=== PATIENT | male | born 1970 | race Caucasian/White ===

== ENCOUNTER 2022-03-03 13:55 | Inpatient (IN) | payer SELFPAY ==
[2022-03-03] VITALS (12 sets, daily range): BP systolic 138–203; BP diastolic 64–121
[~2022-03-03] VITALS: Ht 177.8 cm; Wt 95.5 kg
--- NOTE | 2022-03-03 14:57 | PDOC2 ---
SG CARTER INSTALLER 03/03/22 1457: CARDIAC CONSULT DATE OF CONSULT Date of Consult DATE: 03/03/22 TIME: 14:50 REASON FOR CONSULT Reason for Consult: ACS REFERRING PHYSICIAN Referring Physician: Roverto SOURCE Source: Chart review, Patient HISTORY OF PRESENT ILLNESS HISTORY OF PRESENT ILLNESS This is a 51 yo male admitted for complains of chest pain. He was initially at [facility] and transferred to [facility] for further cardiac workup. He has not been able to workout in the last month since he tore his left tricep. He has been stressed out related to his job. He is currently drowsy but still having mild chest discomfort. His is in the room and reported deatils. He was taking out the trash and lifting when he started having midchest tightness. He also though that his arm discomfort is from his tricep problem. He became diaphoretic, nauseated and actually vomited. He also became lightheaded and was having significant head tightness and this type of OVALLE is what he feels when his BP is high. No visual or auditory disturbance. His chest pain lasted for about 45 min with high intensity. No known hx of CAD, ischemic workup. VTE. He has been taking ibuprofen at least daily in over a week due to his tricep issue. He is vaccinated for the covid-19 PAST MEDICAL HISTORY Cardiovascular: HTN Musculoskeletal: Other (tricep tear) Renal/: Chronic renal insuff (?) Endocrine: Diabetes PAST SURGICAL HISTORY Past Surgical History: Other (teeth extraction) FAMILY HISTORY Family History noncontributory to CV SOCIAL HISTORY Smoke: No ALCOHOL: none Drugs: None Lives: with Family ALLERGIES ALLERGIES: Coded Allergies: Penicillins (Verified Allergy, Severe, 03/03/22) ROS Review of System 14 point ROS evaluated with pertinent positives noted per HPI PHYSICAL EXAM General: Alert, Oriented X3, Cooperative, No acute distress HEENT: Atraumatic, Mucous membr. moist/pink Lungs: Clear to auscultation, Normal air movement Heart: Regular rate (SR), Normal S1, Normal S2, No murmurs Abdomen: Soft, No tenderness Extremities: No cyanosis, No edema Skin: No breakdown, No significant lesion Neuro: Normal speech, Sensation intact Psych/Mental Status: Other (drowsy) MUSCULOSKELETAL: Full range of motion without pain ASSESSMENT/PLAN ASSESSMENT/PLAN 1. ACS 2. HTN urgency 3. WINNIE on CKD with hyperkalemia. Cr at 2.1 noted with 1.5 in the past 4. DM2: insulin dependent 5. OVALLE: due to high BP Recommendations 1. TTE, TSH, FLP tomorrow. BMP and trop stat. 2. ASA. Heparin drip 3. Hydralazine IV PRN 4. Await BMP and trop. K reversal agents if remains elevated. Start IVF 5. LHC, with possible PCI, risks and benefits discussed with pt and and agreeable to proceed JESSENIA CLARK MD 03/03/22 1726: CARDIAC CONSULT ASSESSMENT/PLAN ASSESSMENT/PLAN Patient seen and examined. 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 Patient with non-STEMI and ongoing chest pain. Continue heparin infusion per protocol. 2D echo showed LVEF 45% with basal to mid inferior, posterior lateral wall hypok inesis. Patient was found to have acute on chronic renal insufficiency and hypokalemia We gave him Kayexalate, calcium gluconate and D50 insulin The option of cardiac catheterization along with the risks and benefits was discussed and he agreed Emergent cardiac catheterization showed 100% occluded large caliber left circumflex artery He underwent successful PCI/drug-eluting stent placement LVEDP was elevated at 22 mmHg consistent with acute diastolic heart failure Due to heavy thrombus burden, we will start Aggrastat and continue for 18 hours Continue DAPT, start beta-blockers, statins Consider nephrology team consultation We will refer patient for cardiac rehabilitation on discharge Total critical care time spent evaluating, discussing options and managing patient 50 mins SG CARTER APRN March 03, 2022 14:57 JESSENIA CLARK MD March 03, 2022 17:26
[2022-03-03] MEDS ORDERED: NITROGLYCERIN SUBLINGUAL 0.4 MG BOTTLE OF 25. SL PRN (15:00)
[2022-03-03] MEDS ORDERED: MORPHINE SULFATE 2 MG/ML INJ. IVP PRN (15:00)
[2022-03-03] MEDS: hydrALAZINE 20 MG/ML VIAL. IVP PRN (15:05)
--- NOTE | 2022-03-03 15:08 | EKG ---
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
[2022-03-03] MEDS ORDERED: HEPARIN for IV BOLUS 10,000 UNIT/10 ML VIAL. IV PRN (15:15)
[2022-03-03] MEDS ORDERED: HEPARIN 25,000UTS/250ML PREMIX 250 ML IV PRN (15:15)
[2022-03-03 15:34] LABS: BARBITURATES NEG (NEG); BENZODIAZEPINES NEG (NEG); CANNABINOIDS NEG (NEG); COCAINE NEG (NEG); METHADONE NEG (NEG); OPIATES NEG (NEG); PHENCYCLIDINE NEG (NEG)
[2022-03-03 15:38] LABS: AMPHETAMINE/METHAMPHETAMINE NEG (NEG)
[2022-03-03 15:44] LABS: HYALINE CASTS, URINE MODERATE /HPF
[2022-03-03 15:46] LABS: BACTERIA,URINE 0 /HPF (0-FEW)
[2022-03-03] MEDS ORDERED: CETI10TA16 PO (15:49)
[2022-03-03] MEDS ORDERED: TRIA1TAB5 PO (15:49)
[2022-03-03] MEDS ORDERED: LISI20TA18 PO (15:49)
[2022-03-03 15:56] LABS: BASO # 0.1 x10^3/uL (0.0-0.2); BASO % 1 % (0-3); EOS % 0 % (0-3); HEMATOCRIT 37.4 % (39.0-53.0); HEMOGLOBIN 12.2 g/dL (13.0-17.5); LYMPH % 10 % (24-48); MEAN CORPUSCULAR HEMOGLOBIN 26 pg (25-35); MEAN CORPUSCULAR HGB CONC 33 g/dL (31-37); MEAN CORPUSCULAR VOLUME 80 fL (79-100); MONO # 0.3 x10^3/uL (0.0-1.1); MONO % 3 % (0-9); NEUT # 9.3 x10^3/uL (1.8-7.7); NEUT % 87 % (31-73); PLATELET COUNT 354 x10^3/uL (140-400); RED BLOOD COUNT 4.67 x10^6/uL (4.30-5.70); RED CELL DISTRIBUTION WIDTH 14.6 % (11.5-14.5); WHITE BLOOD COUNT 10.7 x10^3/uL (4.0-11.0)
[2022-03-03] MEDS ORDERED: DEXTROSE 50% 25 GM / 50ML DISP.SYRIN. IV PRN (16:00)
--- NOTE | 2022-03-03 16:03 | PDOC1 ---
History and Physical Date of Service: DOS: DATE: 03/03/22 TIME: 15:59 Chief Complaint: Chief Complain: chest pain History of Present Illness: HPI: Patient is 51-year-old male presented outside hospital this morning due to chest pain. Reported he was moving his trash can when he had midsternal chest pain abruptly. Began feeling lightheaded and diaphoretic. After this did not resolve went to outside emergency room. While there concern for STEMI and STEMI protocol activated transferred here. On presentation here still complaining of chest pain. A little bit lethargic. Patient initially ended up not needing catheterization after chart reviewed per cardiology. However after EKG was repeated here he was brought to [facility] for cardiac cath. Past Medical/Surgical History: PMH/PSH: HTN Allergies: Allergies: Coded Allergies: Penicillins (Verified Allergy, Severe, 03/03/22) Family History: Family History: none per patient Social History: Social History: denies alcohol tobacco drug use Current Medications: Current Medications Current Medications Lorazepam (Ativan Inj) 2 mg 1X ONCE IVP Last administered on 03/03/22at 15:05; Start 03/03/22 at 15:00; Stop 03/03/22 at 15:01; Status DC Hydralazine HCl (Apresoline Inj) 10 mg PRN Q4HRS PRN IVP ELEVATED BP, SEE COMMENTS Last administered on 03/03/22at 15:05; Start 03/03/22 at 15:00 Morphine Sulfate (Morphine Sulfate) 2 mg PRN Q2HR PRN IVP MODERATE TO SEVERE PAIN Last administered on 03/03/22at 15:34; Start 03/03/22 at 15:00 Nitroglycerin (Nitrostat) 0.4 mg PRN Q5MIN PRN SL CHEST PAIN; Start 03/03/22 at 15:00 Aspirin (Ecotrin) 81 mg DAILYWBKFT PO ; Start 03/04/22 at 08:00 Heparin Sodium/ Dextrose 250 ml @ 10 mls/hr CONT PRN IV PER PROTOCOL; Start 03/03/22 at 15:15 Heparin Sodium (Porcine) (Heparin Sodium) 2,450 unit PRN Q6HRS PRN IV FOR UFH LEVEL LESS THAN 0.2; Start 03/03/22 at 15:15 Cetirizine HCl (ZyrTEC) 10 mg DAILY PO ; Start 03/04/22 at 09:00; Status UNV Lisinopril (Prinivil) 20 mg DAILY PO ; Start 03/04/22 at 09:00; Status UNV Non-Formulary Medication (Triamterene/ Hydrochlorothiazid (Triamterene-Hctz 75- 50 Mg Tab)) 1 tab DAILY PO ; Start 03/04/22 at 09:00; Status UNV Active Scripts Active Reported Cetirizine Hcl 10 Mg Tablet 10 Mg PO DAILY Lisinopril 20 Mg Tablet 1 Tab PO DAILY Triamterene-Hctz 75-50 Mg Tab (Triamterene/Hydrochlorothiazid) 1 Each Tablet 1 Tab PO DAILY ROS: Review of Systems Review of System Unless noted in HPI 14 point review of systems is negative Physical Exam: Vital Signs: Vital Signs Date Time Temp Pulse Resp B/P (MAP) Pulse Ox O2 Delivery O2 Flow Rate FiO2 03/03/22 15:34 16 99 Room Air 03/03/22 15:05 99 203/121 03/03/22 14:48 97.6 97.6 Physcial Exam: GEN: No apparent distress. Alert and oriented HEENT: Normal cephalic, atraumatic, external auditory canals are patent EYES: Extraocular muscles are intact, pupil are equally round and reactive to light and accommodation MUSCULOSKELETAL: Well developed , well nourished, good range of motion ENDOCRINE: No thyromegaly was palpated LYMPHATICS: No cervical chain or axillary nodes were noted HEMATOPOIETIC: No bruising NECK: Supple, no JVD, no thyromegaly was noted LUNGS: Clear to auscultation in all lung jones without rhonchi or wheezing HEART: RRR, S!, S2 present. Peripheral pulses intact, no obvious murmurs noted ABDOMEN: Soft, nontender. Positive bowel sounds, no organomegaly, normal bowel sounds EXTREMITIES: Without clubbing, cyanosis, or edema. Pedal pulses intact. Negative Homans sign NEUROLOGIC: Normal speech and tone. A&O x 3, moves all extremities, no obvious focal deficits PSYCHIATRIC: Normal affect, normal mood. Stable SKIN: No ulcerations or rashes, good skin turgor, no jaundice VASCULAR: Good capillary refill, neurovascular bundle appears to be intact Labs: Labs: Laboratory Tests Test 03/03/22 14:50 Urine Collection Type Unknown Urine Color (Auto) Light yellow Urine Turbidity Clear Urine pH (Auto) 6.5 (<5.0-8.0) Urine Specific [place] 1.016 (1.000-1.030) Urine Protein (Auto) 300 mg/dL (Negative) Urine Glucose (Auto)(UA) 100 mg/dL (Negative) Urine Ketones (Auto) Trace mg/dL (Negative) Urine Blood (Auto) Moderate (Negative) Urine Nitrite (Auto) Negative (Negative) Urine Bilirubin (Auto) Negative (Negative) Urine Urobilinogen (Auto) Normal mg/dL (Normal) Urine Leukocyte Esterase (Auto) Negative (Negative) Urine RBC 11-20 /HPF (0-2) Urine WBC 1-4 /HPF (0-4) Urine Squamous Epithelial Cells Few /LPF Urine Bacteria 0 /HPF (0-FEW) Urine Hyaline Casts Moderate /HPF Urine Mucus Slight /LPF Urine Opiates Screen Neg (NEG) Urine Methadone Screen Neg (NEG) Urine Barbiturates Neg (NEG) Urine Phencyclidine Screen Neg (NEG) Urine Amphetamine/Methamphetamine Neg (NEG) Urine Benzodiazepines Screen Neg (NEG) Urine Cocaine Screen Neg (NEG) Urine Cannabinoids Screen Neg (NEG) Urine Ethyl Alcohol Neg (NEG) Laboratory Tests Test 03/03/22 14:50 Urine Collection Type Unknown Urine Color (Auto) Light yellow Urine Turbidity Clear Urine pH (Auto) 6.5 (<5.0-8.0) Urine Specific [place] 1.016 (1.000-1.030) Urine Protein (Auto) 300 mg/dL (Negative) Urine Glucose (Auto)(UA) 100 mg/dL (Negative) Urine Ketones (Auto) Trace mg/dL (Negative) Urine Blood (Auto) Moderate (Negative) Urine Nitrite (Auto) Negative (Negative) Urine Bilirubin (Auto) Negative (Negative) Urine Urobilinogen (Auto) Normal mg/dL (Normal) Urine Leukocyte Esterase (Auto) Negative (Negative) Urine RBC 11-20 /HPF (0-2) Urine WBC 1-4 /HPF (0-4) Urine Squamous Epithelial Cells Few /LPF Urine Bacteria 0 /HPF (0-FEW) Urine Hyaline Casts Moderate /HPF Urine Mucus Slight /LPF Urine Opiates Screen Neg (NEG) Urine Methadone Screen Neg (NEG) Urine Barbiturates Neg (NEG) Urine Phencyclidine Screen Neg (NEG) Urine Amphetamine/Methamphetamine Neg (NEG) Urine Benzodiazepines Screen Neg (NEG) Urine Cocaine Screen Neg (NEG) Urine Cannabinoids Screen Neg (NEG) Urine Ethyl Alcohol Neg (NEG) Assessment/Plan Assessment/Plan ACS, Hyperkalemia, WINNIE on CKD, DM2, HTN -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
[2022-03-03 16:08] LABS: PROTHROMBIN TIME PATIENT 13.9 SEC (11.7-14.0)
[2022-03-03] MEDS ORDERED: CALCIUM CARBONATE 500 MG TAB.CHEW PO PRN (16:15)
[2022-03-03] MEDS ORDERED: oxyCODONE/APAP 5/325 1 TAB TABLET PO PRN ×2 (16:15)
[2022-03-03] MEDS ORDERED: ACETAMINOPHEN 325 MG TABLET. PO PRN (16:15)
[2022-03-03] MEDS ORDERED: ZOLPIDEM 5 MG TABLET. PO PRN (16:15)
[2022-03-03] MEDS ORDERED: ELECTROLYTE (NON-ICU) PROTOCOL. MC PRN (16:15)
[2022-03-03 16:16] LABS: CALCIUM 9.8 mg/dL (8.5-10.1); CREATININE 2.3 mg/dL (0.7-1.3); GFR 29.9
[2022-03-03 16:18] LABS: POTASSIUM 7.3 mmol/L (3.5-5.1)
--- NOTE | 2022-03-03 16:31 | CARD ---
MR#: [id number] Date of Study: 03/03/2022 Ordering Physician: SG CARTER, Referring Physician: SG CARTER Tech: Ada Gupta [facility] APPROVED REPORT EXAM: Two-dimensional and M-mode echocardiogram with Doppler and color Doppler. Other Information Quality : GoodHR: 104bpm Rhythm : Tachycardia INDICATION Chest Pain Non STEMI RISK FACTORS Hypertension 2D DIMENSIONS RVDd3.1 (2.9-3.5cm)Left Atrium(2D)4.0 (1.6-4.0cm) IVSd1.6 (0.7-1.1cm)Aortic Root(2D)3.0 (2.0-3.7cm) LVDd4.7 (3.9-5.9cm)LVOT Diameter2.2 (1.8-2.4cm) PWd1.4 (0.7-1.1cm)LVDs3.8 (2.5-4.0cm) FS (%) 20.8 %SV44.3 ml LVEF(%)42.3 (>50%) Aortic Valve AoV Peak Jesus.140.9cm/Jelly Peak GR.8.4mmHg LVOT Peak Jesus.108.0cm/sAVA (VMAX)2.94cm2 Pulmonary Vein S1 Fdopipyl95.0cm/sD2 Tcmhxqwk29.9cm/s PVa [id number] LEFT VENTRICLE The left ventricle is normal size. There is moderate concentric left ventricular hypertrophy. Base to mid inferior, posterior and lateral wall hypokinesis. The ejection fraction is estimated at 45%. Th e left ventricular diastolic function is normal. No left ventricle thrombus noted on this study. Ther e is no ventricular septal defect visualized. There is no left ventricular aneurysm. There is no mass noted in the left ventricle. RIGHT VENTRICLE The right ventricle is normal size. There is normal right ventricular wall thickness. The right ventr icular systolic function is normal. ATRIA The left atrium is borderline dilated. The right atrium size is normal. The interatrial septum is int act with no evidence for an atrial septal defect or patent foramen ovale as noted on 2-D or Doppler i maging. AORTIC VALVE The aortic valve is normal in structure and function. No aortic regurgitation is present. There is no aortic valvular stenosis. There is no aortic valvular vegetation. MITRAL VALVE The mitral valve is normal in structure and function. There is no evidence of mitral valve prolapse. There is no mitral valve stenosis. There is no mitral valve regurgitation noted. TRICUSPID VALVE The tricuspid valve is normal in structure and function. There is no tricuspid valve regurgitation no roxana. There is no tricuspid valve prolapse or vegetation. There is no tricuspid valve stenosis. PULMONIC VALVE The pulmonary valve is normal in structure and function. There is no pulmonic valvular regurgitation. There is no pulmonic valvular stenosis. GREAT VESSELS The aortic root is normal in size. The ascending aorta is normal in size. The pulmonary artery is nor mal. The IVC is normal in size and collapses >50% with inspiration. PERICARDIAL EFFUSION There is no pleural effusion. There is no evidence of significant pericardial effusion. Critical Notification Critical Value: No <Conclusion> Base to mid Inferior, posterior and lateral wall hypokinesis. The ejection fraction is estimated at 45%. There is no evidence of significant pericardial effusion. Signed by : Nolberto Card, Electronically Approved : 03/03/2022 16:30:32
[2022-03-03] MEDS: IV NORMAL SALINE 1000ML BAG 1,000 ML IV SCH (16:42)
[2022-03-03] MEDS ORDERED: INSULIN REGULAR 100 UNIT/ML 3ML VIAL. IV ONE ×2 (17:00→23:00)
[2022-03-03] MEDS ORDERED: DEXTROSE 50% 25 GM / 50ML DISP.SYRIN. IV ONE ×2 (17:00→23:00)
[2022-03-03] MEDS ORDERED: SODIUM POLYSTYRENE SULFON/SORB 15 GM/60 ML ORAL.SUSP. PO ONE (17:00)
[2022-03-03] MEDS ORDERED: SODIUM BICARB ADULT 8.4% 50 MEQ/50 ML DISP.SYRIN. IV ONE ×2 (17:00→23:00)
[2022-03-03] MEDS: INSULIN LISPRO 300 UNITS/3 ML VIAL. SQ SCH (17:00)
[2022-03-03] MEDS ORDERED: CALCIUM GLUCONATE 1,000 MG/10 ML VIAL. IVP ONE ×2 (17:00→23:00)
[2022-03-03] MEDS ORDERED: HEPARIN for ARTERIAL LINE 1,500 ML ONE (17:02)
[2022-03-03] MEDS ORDERED: LIDOCAINE 1% PF 2 ML VIAL. ONE (17:02)
[2022-03-03] MEDS ORDERED: IODIXANOL 320 MG/ML 100 ML VIAL. ONE (17:02)
[2022-03-03] MEDS ORDERED: HEPARIN for IV BOLUS 10,000 UNIT/10 ML VIAL. ONE (17:03)
[2022-03-03] MEDS ORDERED: fentaNYL PF VIAL 100 MCG/2 ML VIAL ONE (17:03)
[2022-03-03] MEDS ORDERED: BIVALIRUDIN 250 MG VIAL. IVP ONE ×2 (17:03→18:15)
[2022-03-03] MEDS ORDERED: NITROGLYCERIN 200 MCG/2 ML SYRINGE FOR CATH/VASC LAB. ONE ×2 (17:03→18:12)
[2022-03-03] MEDS ORDERED: VERAPAMIL 5 MG/2 ML VIAL. ONE (17:03)
[2022-03-03] MEDS ORDERED: MIDAZOLAM HCL/PF 2 MG/2 ML VIAL. ONE (17:03)
[2022-03-03] MEDS ORDERED: NITROGLYCERIN 200 MCG/2 ML SYRINGE FOR CATH/VASC LAB. ICAR ONE (18:15)
[2022-03-03] MEDS ORDERED: IODIXANOL 320 MG/ML 100 ML VIAL. IART ONE (18:15)
[2022-03-03] MEDS ORDERED: NITROGLYCERIN 200 MCG/2 ML SYRINGE FOR CATH/VASC LAB. IART ONE (18:15)
[2022-03-03] MEDS ORDERED: LIDOCAINE 1% PF 2 ML VIAL. INJ ONE (18:15)
[2022-03-03] MEDS ORDERED: CLOPIDOGREL BISULFATE 75 MG TABLET PO ONE (18:15)
[2022-03-03] MEDS ORDERED: HEPARIN for IV BOLUS 10,000 UNIT/10 ML VIAL. IART ONE (18:15)
[2022-03-03] MEDS ORDERED: MIDAZOLAM HCL/PF 2 MG/2 ML VIAL. IV ONE (18:15)
[2022-03-03] MEDS ORDERED: VERAPAMIL 5 MG/2 ML VIAL. IART ONE (18:15)
[2022-03-03] MEDS ORDERED: fentaNYL PF VIAL 100 MCG/2 ML VIAL IV ONE (18:15)
[2022-03-03] MEDS ORDERED: TIROFIBAN 12.5MG -0.9% NS 250 ML IV PRN (18:15)
[2022-03-03] MEDS: IV 1/2 NORMAL SALINE 1,000 ML IV SCH (18:30)
[2022-03-03] MEDS ORDERED: INSU100V37 SQ (18:40)
[2022-03-03] MEDS ORDERED: INSU100C4 SQ (18:40)
[2022-03-03] MEDS: SENNOSIDES/DOCUSATE 8.6/50MG TABLET. PO SCH (20:57)
[2022-03-03] MEDS: ATORVASTATIN CALCIUM 40 MG TABLET. PO SCH (20:57)
[2022-03-03] MEDS ORDERED: FUROSEMIDE 20 MG/2 ML VIAL. IVP ONE (23:00)
[2022-03-04] VITALS (14 sets, daily range): BP systolic 129–178; BP diastolic 69–99
[2022-03-04] MEDS: IV NORMAL SALINE 1000ML BAG 1,000 ML IV SCH ×3 (02:31→21:56)
[2022-03-04] MEDS: IV 1/2 NORMAL SALINE 1,000 ML IV SCH (07:50)
[2022-03-04] MEDS: INSULIN LISPRO 300 UNITS/3 ML VIAL. SQ SCH ×3 (08:00→17:00)
[2022-03-04] MEDS ORDERED: ASPIRIN ENTERIC COATED 81 MG TABLET.DR. PO SCH (08:00)
[2022-03-04 08:23] LABS: CALCIUM 9.1 mg/dL (8.5-10.1); CREATININE 2.1 mg/dL (0.7-1.3); GFR 33.2; MAGNESIUM 1.9 mg/dL (1.8-2.4)
[2022-03-04 08:31] LABS: CHOLESTEROL/HDL RATIO 8.1
[2022-03-04] MEDS: ASPIRIN ENTERIC COATED 325 MG TABLET.DR. PO SCH (08:33)
[2022-03-04] MEDS: CETIRIZINE HCL 10 MG TABLET. PO SCH (08:33)
[2022-03-04] MEDS: CLOPIDOGREL BISULFATE 75 MG TABLET PO SCH (08:33)
[2022-03-04] MEDS: SENNOSIDES/DOCUSATE 8.6/50MG TABLET. PO SCH ×2 (08:34→20:25)
[2022-03-04] MEDS: FLUTICASONE 50MCG/NASAL SPRAY 16GM BOTTLE. NS SCH (08:37)
[2022-03-04] MEDS ORDERED: TRIAMTERENE/HCTZ 37.5/25MG TABLET. PO SCH (09:00)
[2022-03-04] MEDS ORDERED: LISINOPRIL 20 MG TABLET PO SCH (09:00)
--- NOTE | 2022-03-04 09:20 | PDOC ---
PROGRESS NOTES Date of Service: DATE: 03/04/22 TIME: 09:20 Subjective Subjective Feeling much better. Denied any chest pain. Objective Objective Vital Signs Date Time Temp Pulse Resp B/P (MAP) Pulse Ox O2 Delivery O2 Flow Rate FiO2 03/04/22 07:00 99 17 140/86 (104) 99 Room Air 03/04/22 04:00 98.9 98.9 03/03/22 18:38 4.0 Intake and Output 03/04/22 07:00 Intake Total 1865 ml Output Total 1625 ml Balance 240 ml Intake Oral 600 ml IV Total 1265 ml Output Urine Total 1625 ml Physical Exam Abdomen: Soft, No tenderness Heart: Regular rate (SR), Normal S1, Normal S2, No murmurs Extremities: No cyanosis, No edema General: Alert, Oriented X3, Cooperative, No acute distress HEENT: Atraumatic, Mucous membr. moist/pink Lungs: Clear to auscultation, Normal air movement MUSCULOSKELETAL: Full range of motion without pain Neuro: Normal speech, Sensation intact Psych/Mental Status: Other (drowsy) Skin: No breakdown, No significant lesion Assessment Assessment 1. Acute non-STEMI: Cardiac catheterization yesterday showed 100% occluded large caliber left circumflex artery. He underwent successful PCI/FAISAL placement. Continue dual antiplatelet therapy. Telemetry did not show any significant arrhythmias. Due to heavy thrombus burden within the lesion, he is currently on Aggrastat infusion per protocol for 18 hours total. 2. Acute combined systolic and diastolic heart failure: 2D echo showed LVEF 45% with basal to mid inferior, posterior and lateral wall hypokinesis. He is clinically well compensated. 3. Accelerated hypertension: Blood pressure better controlled. 4. Acute on chronic renal insufficiency, hyperkalemia: Improving. Nephrology consulted 5. Hyperlipidemia: Continue statin therapy 6. DM2: Treat per IM Comment Review of Relevant I have reviewed the following items eliud (where applicable) has been applied. Labs Laboratory Tests Test 03/03/22 14:50 03/03/22 15:29 03/03/22 19:07 03/03/22 21:45 Urine Collection Type Unknown Urine Color (Auto) Light yellow Urine Turbidity Clear Urine pH (Auto) 6.5 (<5.0-8.0) Urine Specific [place] 1.016 (1.000-1.030) Urine Protein (Auto) 300 mg/dL (Negative) Urine Glucose (Auto)(UA) 100 mg/dL (Negative) Urine Ketones (Auto) Trace mg/dL (Negative) Urine Blood (Auto) Moderate (Negative) Urine Nitrite (Auto) Negative (Negative) Urine Bilirubin (Auto) Negative (Negative) Urine Urobilinogen (Auto) Normal mg/dL (Normal) Urine Leukocyte Esterase (Auto) Negative (Negative) Urine RBC 11-20 /HPF (0-2) Urine WBC 1-4 /HPF (0-4) Urine Squamous Epithelial Cells Few /LPF Urine Bacteria 0 /HPF (0-FEW) Urine Hyaline Casts Moderate /HPF Urine Mucus Slight /LPF Urine Opiates Screen Neg (NEG) Urine Methadone Screen Neg (NEG) Urine Barbiturates Neg (NEG) Urine Phencyclidine Screen Neg (NEG) Urine Amphetamine/Methamphetamine Neg (NEG) Urine Benzodiazepines Screen Neg (NEG) Urine Cocaine Screen Neg (NEG) Urine Cannabinoids Screen Neg (NEG) Urine Ethyl Alcohol Neg (NEG) White Blood Count 10.7 x10^3/uL (4.0-11.0) Red Blood Count 4.67 x10^6/uL (4.30-5.70) Hemoglobin 12.2 g/dL (13.0-17.5) Hematocrit 37.4 % (39.0-53.0) Mean Corpuscular Volume 80 fL (79-100) Mean Corpuscular Hemoglobin 26 pg (25-35) Mean Corpuscular Hemoglobin Concent 33 g/dL (31-37) Red Cell Distribution Width 14.6 % (11.5-14.5) Platelet Count 354 x10^3/uL (140-400) Neutrophils (%) (Auto) 87 % (31-73) Lymphocytes (%) (Auto) 10 % (24-48) Monocytes (%) (Auto) 3 % (0-9) Eosinophils (%) (Auto) 0 % (0-3) Basophils (%) (Auto) 1 % (0-3) Neutrophils # (Auto) 9.3 x10^3/uL (1.8-7.7) Lymphocytes # (Auto) 1.0 x10^3/uL (1.0-4.8) Monocytes # (Auto) 0.3 x10^3/uL (0.0-1.1) Eosinophils # (Auto) 0.0 x10^3/uL (0.0-0.7) Basophils # (Auto) 0.1 x10^3/uL (0.0-0.2) Prothrombin Time 13.9 SEC (11.7-14.0) Prothromb Time International Ratio 1.1 (0.8-1.1) Activated Partial Thromboplast Time 145 SEC (24-38) Sodium Level 139 mmol/L (136-145) Potassium Level 7.3 mmol/L (3.5-5.1) 7.2 mmol/L (3.5-5.1) Chloride Level 106 mmol/L (98-107) Carbon Dioxide Level 19 mmol/L (21-32) Anion Gap 14 (6-14) Blood Urea Nitrogen 48 mg/dL (8-26) Creatinine 2.3 mg/dL (0.7-1.3) Estimated GFR (Cockcroft-Gault) 29.9 Glucose Level 213 mg/dL (70-99) Calcium Level 9.8 mg/dL (8.5-10.1) Troponin I High Sensitivity 1170 ng/L (4-75) Thyroid Stimulating Hormone (TSH) 1.093 uIU/mL (0.358-3.74) Glucose (Fingerstick) 152 mg/dL (70-99) Test 03/04/22 07:40 Sodium Level 142 mmol/L (136-145) Potassium Level 5.0 mmol/L (3.5-5.1) Chloride Level 108 mmol/L (98-107) Carbon Dioxide Level 22 mmol/L (21-32) Anion Gap 12 (6-14) Blood Urea Nitrogen 42 mg/dL (8-26) Creatinine 2.1 mg/dL (0.7-1.3) Estimated GFR (Cockcroft-Gault) 33.2 Glucose Level 149 mg/dL (70-99) Calcium Level 9.1 mg/dL (8.5-10.1) Magnesium Level 1.9 mg/dL (1.8-2.4) Triglycerides Level 152 mg/dL (0-150) Cholesterol Level 316 mg/dL (0-200) LDL Cholesterol, Calculated 247 mg/dL (0-100) VLDL Cholesterol, Calculated 30 mg/dL (0-40) Non-HDL Cholesterol Calculated 277 mg/dL (0-129) HDL Cholesterol 39 mg/dL (40-60) Cholesterol/HDL Ratio 8.1 Medications Current Medications Acetaminophen (Tylenol) 650 mg PRN Q6HRS PRN PO Headaches, Temp > 101.5F; Start 03/03/22 at 16:15 Aspirin (Ecotrin) 81 mg DAILYWBKFT PO ; Start 03/04/22 at 08:00; Stop 03/03/22 at 18:26; Status DC Aspirin (Ecotrin) 325 mg DAILYWBKFT PO Last administered on 03/04/22at 08:33; Start 03/04/22 at 08:00 Atorvastatin Calcium (Lipitor) 40 mg QHS PO Last administered on 03/03/22at 20:57; Start 03/03/22 at 21:00 Bivalirudin (Angiomax) 250 mg 1X ONCE IVP Last administered on 03/03/22at 17:39; Start 03/03/22 at 18:15; Stop 03/03/22 at 18:16; Status DC Bivalirudin (Angiomax) 250 mg STK-MED ONCE IVP ; Start 03/03/22 at 17:03; Stop 03/03/22 at 17:03; Status DC Calcium Carbonate/ Glycine (Tums) 500 mg PRN Q3HRS PRN PO UPSET STOMACH; Start 03/03/22 at 16:15 Calcium Gluconate (Calcium Gluconate) 1,000 mg 1X ONCE IVP Last administered on 03/03/22at 16:42; Start 03/03/22 at 17:00; Stop 03/03/22 at 17:01; Status DC Calcium Gluconate (Calcium Gluconate) 1,000 mg 1X ONCE IVP Last administered on 03/03/22at 22:40; Start 03/03/22 at 23:00; Stop 03/03/22 at 23:01; Status DC Cetirizine HCl (ZyrTEC) 10 mg DAILY PO Last administered on 03/04/22at 08:33; Start 03/04/22 at 09:00 Clopidogrel Bisulfate (Plavix) 75 mg DAILYWBKFT PO Last administered on 03/04/22at 08:33; Start 03/04/22 at 08:00 Clopidogrel Bisulfate (Plavix) 600 mg 1X ONCE PO Last administered on 03/03/22at 18:15; Start 03/03/22 at 18:15; Stop 03/03/22 at 18:16; Status DC Dextrose (Dextrose 50%-Water Syringe) 12.5 gm PRN Q15MIN PRN IV SEE COMMENTS; Start 03/03/22 at 16:00 Dextrose (Dextrose 50%-Water Syringe) 25 gm 1X ONCE IV Last administered on 03/03/22at 16:41; Start 03/03/22 at 17:00; Stop 03/03/22 at 17:01; Status DC Dextrose (Dextrose 50%-Water Syringe) 25 gm 1X ONCE IV Last administered on 03/03/22at 22:39; Start 03/03/22 at 23:00; Stop 03/03/22 at 23:01; Status DC Fentanyl Citrate (Fentanyl 2ml Vial) 100 mcg 1X ONCE IV Last administered on 03/03/22at 17:56; Start 03/03/22 at 18:15; Stop 03/03/22 at 18:16; Status DC Fentanyl Citrate (Fentanyl 2ml Vial) 100 mcg STK-MED ONCE .ROUTE ; Start 03/03/22 at 17:03; Stop 03/03/22 at 17:03; Status DC Fluticasone Propionate (Flonase) 2 spray DAILY NS Last administered on 03/04/22at 08:37; Start 03/04/22 at 09:00 Furosemide (Lasix) 20 mg 1X ONCE IVP Last administered on 03/03/22at 22:40; Start 03/03/22 at 23:00; Stop 03/03/22 at 23:01; Status DC Heparin Sodium (Porcine) (Heparin Sodium) 2,450 unit PRN Q6HRS PRN IV FOR UFH LEVEL LESS THAN 0.2; Start 03/03/22 at 15:15; Stop 03/03/22 at 18:25; Status DC Heparin Sodium (Porcine) (Heparin Sodium) 2,500 unit 1X ONCE IART Last administered on 03/03/22at 17:28; Start 03/03/22 at 18:15; Stop 03/03/22 at 18:16; Status DC Heparin Sodium (Porcine) (Heparin Sodium) 10,000 unit STK-MED ONCE .ROUTE ; Start 03/03/22 at 17:03; Stop 03/03/22 at 17:03; Status DC Heparin Sodium/ Dextrose 250 ml @ 10 mls/hr CONT PRN IV PER PROTOCOL; Start 03/03/22 at 15:15; Stop 03/03/22 at 18:25; Status DC Heparin Sodium/ Sodium Chloride 1,500 ml @ As Directed STK-MED ONCE .ROUTE ; Start 03/03/22 at 17:02; Stop 03/03/22 at 17:02; Status DC Heparin Sodium/ Sodium Chloride (HEPARIN for ARTERIAL LINE FLUSH) 1,000 unit 1X ONCE IART Last administered on 03/03/22at 17:45; Start 03/03/22 at 18:15; Stop 03/03/22 at 18:16; Status DC Hydralazine HCl (Apresoline Inj) 10 mg PRN Q4HRS PRN IVP ELEVATED BP, SEE COMMENTS Last administered on 03/03/22at 15:05; Start 03/03/22 at 15:00 Info (Non-Icu Electrolyte Protocol) 1 ea PRN DAILY PRN MC SEE COMMENTS; Start 03/03/22 at 16:15 Insulin Human Lispro (HumaLOG) 0-7 UNITS TIDWMEALS SQ ; Start 03/03/22 at 17:00 Insulin Human Regular (HumuLIN R VIAL) 10 unit 1X ONCE IV Last administered on 03/03/22at 16:41; Start 03/03/22 at 17:00; Stop 03/03/22 at 17:01; Status DC Insulin Human Regular (HumuLIN R VIAL) 10 unit 1X ONCE IV Last administered on 03/03/22at 22:41; Start 03/03/22 at 23:00; Stop 03/03/22 at 23:01; Status DC Iodixanol (Visipaque 320) 100 ml 1X ONCE IART Last administered on 03/03/22at 18:15; Start 03/03/22 at 18:15; Stop 03/03/22 at 18:16; Status DC Iodixanol (Visipaque 320) 100 ml STK-MED ONCE .ROUTE ; Start 03/03/22 at 17:02; Stop 03/03/22 at 17:02; Status DC Lidocaine HCl (Xylocaine-Mpf 1% 2ml Vial) 2 ml 1X ONCE INJ Last administered on 03/03/22at 17:13; Start 03/03/22 at 18:15; Stop 03/03/22 at 18:16; Status DC Lidocaine HCl (Xylocaine-Mpf 1% 2ml Vial) 2 ml STK-MED ONCE .ROUTE ; Start 03/03/22 at 17:02; Stop 03/03/22 at 17:02; Status DC Lisinopril (Prinivil) 20 mg DAILY PO ; Start 03/04/22 at 09:00; Stop 03/03/22 at 16:56; Status DC Lorazepam (Ativan Inj) 2 mg 1X ONCE IVP Last administered on 03/03/22at 15:05; Start 03/03/22 at 15:00; Stop 03/03/22 at 15:01; Status DC Midazolam HCl (Versed) 2 mg 1X ONCE IV Last administered on 03/03/22at 17:27; Start 03/03/22 at 18:15; Stop 03/03/22 at 18:16; Status DC Midazolam HCl (Versed) 2 mg STK-MED ONCE .ROUTE ; Start 03/03/22 at 17:03; Stop 03/03/22 at 17:03; Status DC Morphine Sulfate (Morphine Sulfate) 2 mg PRN Q2HR PRN IVP MODERATE TO SEVERE PAIN Last administered on 03/03/22at 15:34; Start 03/03/22 at 15:00 Nitroglycerin (Nitroglycerin) 200 mcg 1X ONCE IART Last administered on 03/03/22at 17:25; Start 03/03/22 at 18:15; Stop 03/03/22 at 18:16; Status DC Nitroglycerin (Nitroglycerin) 200 mcg 1X ONCE ICAR Last administered on 03/03/22at 18:15; Start 03/03/22 at 18:15; Stop 03/03/22 at 18:16; Status DC Nitroglycerin (Nitroglycerin) 200 mcg STK-MED ONCE .ROUTE ; Start 03/03/22 at 17:03; Stop 03/03/22 at 17:04; Status DC Nitroglycerin (Nitroglycerin) 200 mcg STK-MED ONCE .ROUTE ; Start 03/03/22 at 18:12; Stop 03/03/22 at 18:12; Status DC Nitroglycerin (Nitrostat) 0.4 mg PRN Q5MIN PRN SL CHEST PAIN; Start 03/03/22 at 15:00 Ondansetron HCl (Zofran) 4 mg PRN Q6HRS PRN IVP NAUSEA/VOMITING; Start 03/03/22 at 16:15 Oxycodone/ Acetaminophen (Percocet 5/325) 1 tab PRN Q4HRS PRN PO MILD PAIN, 1ST CHOICE; Start 03/03/22 at 16:15 Oxycodone/ Acetaminophen (Percocet 5/325) 2 tab PRN Q4HRS PRN PO MODERATE PAIN, SEVERE PAIN; Start 03/03/22 at 16:15 Senna/Docusate Sodium (Senna Plus) 1 tab BID PO Last administered on 03/03/22at 20:57; Start 03/03/22 at 21:00 Sodium Polystyrene Sulfonate (Kayexalate) 30 gm 1X ONCE PO Last administered on 03/03/22at 16:47; Start 03/03/22 at 17:00; Stop 03/03/22 at 17:01; Status DC Sodium Bicarbonate (Sodium Bicarb Adult 8.4% Syr) 50 meq 1X ONCE IV Last administered on 03/03/22at 16:41; Start 03/03/22 at 17:00; Stop 03/03/22 at 17:01; Status DC Sodium Bicarbonate (Sodium Bicarb Adult 8.4% Syr) 50 meq 1X ONCE IV Last administered on 03/03/22at 22:39; Start 03/03/22 at 23:00; Stop 03/03/22 at 23:01; Status DC Sodium Chloride 1,000 ml @ 75 mls/hr [id number] IV ; Start 03/03/22 at 18:30 Sodium Chloride 1,000 ml @ 100 mls/hr Q10H IV Last administered on 03/04/22at 02:31; Start 03/03/22 at 16:45 Tirofiban/Sodium Chloride 250 ml @ 0 mls/hr CONT PRN IV PER PROTOCOL Last administered on 03/03/22at 18:15; Start 03/03/22 at 18:15; Stop 03/04/22 at 12:14 Triamterene/HCTZ (Maxzide 37.5/ 25mg) 2 tab DAILY PO ; Start 03/04/22 at 09:00; Stop 03/03/22 at 16:56; Status DC Verapamil HCl (Verapamil) 2.5 mg 1X ONCE IART Last administered on 03/03/22at 17:25; Start 03/03/22 at 18:15; Stop 03/03/22 at 18:16; Status DC Verapamil HCl (Verapamil) 5 mg STK-MED ONCE .ROUTE ; Start 03/03/22 at 17:03; Stop 03/03/22 at 17:04; Status DC Zolpidem Tartrate (Ambien) 5 mg PRN QHS PRN PO INSOMNIA, MAY REPEAT IN 1HR; Start 03/03/22 at 16:15 Vitals/I & O Vital Sign - Last 24 Hours 03/03/22 03/03/22 03/03/22 03/03/22 14:48 15:00 15:05 15:34 Temp 97.6 97.6 Pulse 99 92 99 Resp 18 16 B/P (MAP) 203/121 (148) 181/117 (138) 203/121 Pulse Ox 99 O2 Delivery Room Air Room Air Room Air 03/03/22 03/03/22 03/03/22 03/03/22 16:00 16:00 16:04 17:00 Pulse 108 104 Resp 16 18 B/P (MAP) 148/75 (99) 150/64 (92) Pulse Ox 98 O2 Delivery Room Air Room Air Room Air Room Air 03/03/22 03/03/22 03/03/22 03/03/22 17:25 17:56 18:38 18:45 Pulse 114 103 104 Resp 17 B/P (MAP) 173/103 (126) Pulse Ox 100 O2 Delivery Nasal Cannula Room Air O2 Flow Rate 4.0 03/03/22 03/03/22 03/03/22 03/03/22 19:00 19:15 20:00 20:00 Temp 97.8 97.8 Pulse 112 110 110 Resp 18 B/P (MAP) 201/88 (125) 188/92 (124) 145/82 (103) Pulse Ox 97 97 95 O2 Delivery Room Air Room Air Room Air Room Air 03/03/22 03/03/22 03/03/22 03/04/22 21:00 22:00 23:00 00:00 Temp 98.9 98.9 Pulse 104 104 114 112 Resp 16 16 18 B/P (MAP) 138/81 (100) 147/77 (100) 158/70 (99) 153/90 (111) Pulse Ox 97 98 99 97 O2 Delivery Room Air Room Air Room Air Room Air 03/04/22 03/04/22 03/04/22 03/04/22 00:00 01:00 02:00 03:00 Pulse 100 99 98 Resp 18 14 14 B/P (MAP) 129/69 (89) 156/87 (110) 149/80 (103) Pulse Ox 97 98 98 O2 Delivery Room Air Room Air Room Air Room Air 03/04/22 03/04/22 03/04/22 03/04/22 04:00 04:00 05:00 06:00 Temp 98.9 98.9 Pulse 97 104 97 Resp 14 14 18 B/P (MAP) 178/89 (118) 134/86 (102) 147/86 (106) Pulse Ox 98 95 98 O2 Delivery Room Air Room Air Room Air Room Air 03/04/22 07:00 Pulse 99 Resp 17 B/P (MAP) 140/86 (104) Pulse Ox 99 O2 Delivery Room Air Intake and Output 03/03/22 03/03/22 03/04/22 15:00 23:00 07:00 Intake Total 360 ml 1505 ml Output Total 325 ml 1300 ml Balance 35 ml 205 ml JESSENIA CLARK MD March 04, 2022 09:20
--- NOTE | 2022-03-04 09:45 | CARD ---
MR#: [id number] Date of Study: 03/03/2022 Ordering Physician: JESSENIA CARD, Referring Physician: JESSENIA CARD Tech: RT Jase(R) APPROVED REPORT Technologist: RT Jase(R) Nurse: Raquel Mccormack RN Procedure(s) performed: 1. Left heart catheterization and selective coronary angiography via right t ransradial approach 2. Successful PCI/drug-eluting stent placement to the left circumflex artery FL TIME: 17.7 MIN DOSE: 131 GYCM2 CONTRAST: 133 ML MODERATE SEDATION: 67 MINS INDICATION The indication(s) include : non-STEMI . [facility] Clinical Frailty Scale [facility] Clinical Frailty Scale: Managing Well Heart Failure Heart Failure: No CASE TECHNIQUE IV conscious sedation was used throughout procedure with appropriate monitoring and was performed in the presence of a registered nurse who was an independent trained observer other than the physician p erforming the procedure. During this case, Fluoroscopy and low osmolar contrast were used for imaging . Specimen(s) Removed: No Estimated Blood loss: 15 cc's. PROCEDURE NARRATIVE After explaining the risks, benefits and alternative options, informed consent was obtained from lazara ent. Patient was brought to the cardiac Health Sciences Department Chair and right wrist was prepped and draped in the usual fashion after confirming a positive modified Hayden's test. Arterial access was obtained in the rig t radial artery and a 6 [place]ic sheath was inserted. 6 [place]ic [place] and 6 [place]ic JL 3.5 catheters we re used to perform selective angiography of the right and left coronary arteries. LVEDP and transaor tic gradients were measured. The following findings were noted: FINDINGS 1. Hemodynamics: Elevated left ventricular end-diastolic pressure of 22 mmHg consistent with acute d iastolic heart failure. No pullback gradient across the aortic valve. 2. Coronary angiography: a. The left main coronary artery arose from the left sinus of Valsalva, gave rise to the left anteri or descending and left circumflex arteries and did not show any significant stenosis. b. The left anterior descending artery showed 30% stenosis in the midsegment. c. The left circumflex artery is a large-caliber vessel that showed 100% occlusion in the midsegment . d. The right coronary artery was a tortuous and dominant vessel arising from the right sinus of Vals heath that did not show any significant stenosis. INTERVENTION The left main coronary artery was engaged with a 6 Green[place]ic XB 3.5 guide catheter. Initial attempts to cross the occlusion in the left circumflex artery with a 0.014 inch [employer] [place] guidewire were un successful. Subsequently, with the help of backup support using a balloon, this lesion was crossed w ith a 0.014 inch Choice PT guidewire. The lesion was predilated with a 2.5 x 15 mm sapphire II pro b alloon following which this was successfully treated with a 3.5 x 30 mm resolute Stefan drug-eluting st ent. Follow-up angiography showed resolution of the lesion to 0% with MICKIE-3 distal flow. Patient w as found to have thrombus shift into the second obtuse marginal branch causing 95% stenosis. The thi rd obtuse marginal branch showed 70% proximal segment stenosis. The distal left circumflex artery sh owed a bifurcation lesion of 50% stenosis severity. We will start patient on Aggrastat infusion and continue it for 18 hours due to thrombus burden. Patient tolerated the procedure well. Hemostasis w as achieved using TR band. There were no immediate complications. MICKIE Flow MICKIE Flow (Pre-Intervention): MICKIE-0 MICKIE Flow (Post-Intervention): MICKIE-3 Conclusion 1. Severe single-vessel coronary artery disease, 100% occlusion of a large caliber left circumflex a rtery 2. Successful PCI/drug-eluting stent placement to the left circumflex artery 3. Acute diastolic heart failure as evidenced by elevated LVEDP Recommendations 1. Aspirin 325 mg daily for 1 month followed by 81 mg daily 2. Plavix 75 mg daily 3. Aggrastat infusion for 18 hours 4. Cardiovascular risk factor modification 5. Cardiac rehabilitation referral upon discharge Signed by : Jessenia Card, Electronically Approved : 03/04/2022 09:45:25
--- NOTE | 2022-03-04 11:56 | PDOC ---
[facility] PROGRESS NOTE Date of Service DOS: DATE: 03/04/22 TIME: 11:54 Chief Complaint Chief Complaint Acute RI status post cardiac cath with stent to the circumflex 1. ACS 2. HTN urgency 3. WINNIE on CKD with hyperkalemia. Cr at 2.1 noted with 1.5 in the past 4. DM2: insulin dependent 5. OVALLE: due to high BP History of Present Illness History of Present Illness 03/04/2022 Patient seen and examined in the ICU He is currently on Aggrastat drip Tolerated his cardiac cath with stent to the circumflex yesterday Discussed with RN Chart reviewed Vitals/I&O Vitals/I&O: Vital Signs Date Time Temp Pulse Resp B/P (MAP) Pulse Ox O2 Delivery O2 Flow Rate FiO2 03/04/22 10:00 101 16 137/91 (106) 98 Room Air 03/04/22 08:00 97.9 97.9 03/03/22 18:38 4.0 I & O 03/03/22 03/03/22 03/04/22 15:00 23:00 07:00 Intake Total 360 ml 1505 ml Output Total 325 ml 1300 ml Balance 35 ml 205 ml Physical Exam General: Alert, Oriented X3, Cooperative, No acute distress Heart: Regular rate (SR), Normal S1, Normal S2, No murmurs Abdomen: Soft, No tenderness Extremities: No cyanosis, No edema Skin: No breakdown, No significant lesion Labs Labs: Laboratory Tests Test 03/03/22 14:50 03/03/22 15:29 03/03/22 19:07 03/03/22 21:45 Urine Collection Type Unknown Urine Color (Auto) Light yellow Urine Turbidity Clear Urine pH (Auto) 6.5 (<5.0-8.0) Urine Specific [place] 1.016 (1.000-1.030) Urine Protein (Auto) 300 mg/dL (Negative) Urine Glucose (Auto)(UA) 100 mg/dL (Negative) Urine Ketones (Auto) Trace mg/dL (Negative) Urine Blood (Auto) Moderate (Negative) Urine Nitrite (Auto) Negative (Negative) Urine Bilirubin (Auto) Negative (Negative) Urine Urobilinogen (Auto) Normal mg/dL (Normal) Urine Leukocyte Esterase (Auto) Negative (Negative) Urine RBC 11-20 /HPF (0-2) Urine WBC 1-4 /HPF (0-4) Urine Squamous Epithelial Cells Few /LPF Urine Bacteria 0 /HPF (0-FEW) Urine Hyaline Casts Moderate /HPF Urine Mucus Slight /LPF Urine Opiates Screen Neg (NEG) Urine Methadone Screen Neg (NEG) Urine Barbiturates Neg (NEG) Urine Phencyclidine Screen Neg (NEG) Urine Amphetamine/Methamphetamine Neg (NEG) Urine Benzodiazepines Screen Neg (NEG) Urine Cocaine Screen Neg (NEG) Urine Cannabinoids Screen Neg (NEG) Urine Ethyl Alcohol Neg (NEG) White Blood Count 10.7 x10^3/uL (4.0-11.0) Red Blood Count 4.67 x10^6/uL (4.30-5.70) Hemoglobin 12.2 g/dL (13.0-17.5) Hematocrit 37.4 % (39.0-53.0) Mean Corpuscular Volume 80 fL (79-100) Mean Corpuscular Hemoglobin 26 pg (25-35) Mean Corpuscular Hemoglobin Concent 33 g/dL (31-37) Red Cell Distribution Width 14.6 % (11.5-14.5) Platelet Count 354 x10^3/uL (140-400) Neutrophils (%) (Auto) 87 % (31-73) Lymphocytes (%) (Auto) 10 % (24-48) Monocytes (%) (Auto) 3 % (0-9) Eosinophils (%) (Auto) 0 % (0-3) Basophils (%) (Auto) 1 % (0-3) Neutrophils # (Auto) 9.3 x10^3/uL (1.8-7.7) Lymphocytes # (Auto) 1.0 x10^3/uL (1.0-4.8) Monocytes # (Auto) 0.3 x10^3/uL (0.0-1.1) Eosinophils # (Auto) 0.0 x10^3/uL (0.0-0.7) Basophils # (Auto) 0.1 x10^3/uL (0.0-0.2) Prothrombin Time 13.9 SEC (11.7-14.0) Prothromb Time International Ratio 1.1 (0.8-1.1) Activated Partial Thromboplast Time 145 SEC (24-38) Sodium Level 139 mmol/L (136-145) Potassium Level 7.3 mmol/L (3.5-5.1) 7.2 mmol/L (3.5-5.1) Chloride Level 106 mmol/L (98-107) Carbon Dioxide Level 19 mmol/L (21-32) Anion Gap 14 (6-14) Blood Urea Nitrogen 48 mg/dL (8-26) Creatinine 2.3 mg/dL (0.7-1.3) Estimated GFR (Cockcroft-Gault) 29.9 Glucose Level 213 mg/dL (70-99) Calcium Level 9.8 mg/dL (8.5-10.1) Troponin I High Sensitivity 1170 ng/L (4-75) Thyroid Stimulating Hormone (TSH) 1.093 uIU/mL (0.358-3.74) Glucose (Fingerstick) 152 mg/dL (70-99) Test 03/04/22 07:40 Sodium Level 142 mmol/L (136-145) Potassium Level 5.0 mmol/L (3.5-5.1) Chloride Level 108 mmol/L (98-107) Carbon Dioxide Level 22 mmol/L (21-32) Anion Gap 12 (6-14) Blood Urea Nitrogen 42 mg/dL (8-26) Creatinine 2.1 mg/dL (0.7-1.3) Estimated GFR (Cockcroft-Gault) 33.2 Glucose Level 149 mg/dL (70-99) Calcium Level 9.1 mg/dL (8.5-10.1) Magnesium Level 1.9 mg/dL (1.8-2.4) Triglycerides Level 152 mg/dL (0-150) Cholesterol Level 316 mg/dL (0-200) LDL Cholesterol, Calculated 247 mg/dL (0-100) VLDL Cholesterol, Calculated 30 mg/dL (0-40) Non-HDL Cholesterol Calculated 277 mg/dL (0-129) HDL Cholesterol 39 mg/dL (40-60) Cholesterol/HDL Ratio 8.1 Assessment and Plan Assessmemt and Plan Acute RI status post cardiac cath with stent to the circumflex 1. ACS 2. HTN urgency 3. WINNIE on CKD with hyperkalemia. Cr at 2.1 noted with 1.5 in the past 4. DM2: insulin dependent 5. OVALLE: due to high BP Plan Continue Aggrastat drip and hope to change to p.o. Plavix or Effient when okay with cardiology Cardiac cocktail (statins beta-blockers antiplatelet drugs as needed nitro etc.) Continue cardiac monitoring Home meds DVT prophylaxis Full code Appreciate cardiology intervention Hope to discharge tomorrow if stable Comment Review of Relevant I have reviewed the following items eliud (where applicable) has been applied. Medications: Current Medications Medications (Trade) Dose Ordered Sig/[place] Route PRN Reason Start Time Stop Time Status Last Admin Dose Admin Lorazepam (Ativan Inj) 2 mg 1X ONCE IVP 03/03/22 15:00 03/03/22 15:01 DC 03/03/22 15:05 Hydralazine HCl (Apresoline Inj) 10 mg PRN Q4HRS PRN IVP ELEVATED BP, SEE COMMENTS 03/03/22 15:00 03/03/22 15:05 Morphine Sulfate (Morphine Sulfate) 2 mg PRN Q2HR PRN IVP MODERATE TO SEVERE PAIN 03/03/22 15:00 03/03/22 15:34 Cetirizine HCl (ZyrTEC) 10 mg DAILY PO 03/04/22 09:00 03/04/22 08:33 Senna/Docusate Sodium (Senna Plus) 1 tab BID PO 03/03/22 21:00 03/03/22 20:57 Calcium Gluconate (Calcium Gluconate) 1,000 mg 1X ONCE IVP 03/03/22 17:00 03/03/22 17:01 DC 03/03/22 16:42 Sodium Bicarbonate (Sodium Bicarb Adult 8.4% Syr) 50 meq 1X ONCE IV 03/03/22 17:00 03/03/22 17:01 DC 03/03/22 16:41 Dextrose (Dextrose 50%-Water Syringe) 25 gm 1X ONCE IV 03/03/22 17:00 03/03/22 17:01 DC 03/03/22 16:41 Insulin Human Regular (HumuLIN R VIAL) 10 unit 1X ONCE IV 03/03/22 17:00 03/03/22 17:01 DC 03/03/22 16:41 Sodium Polystyrene Sulfonate (Kayexalate) 30 gm 1X ONCE PO 03/03/22 17:00 03/03/22 17:01 DC 03/03/22 16:47 Sodium Chloride 1,000 ml @ 100 mls/hr Q10H IV 03/03/22 16:45 03/04/22 02:31 Nitroglycerin (Nitroglycerin) 200 mcg 1X ONCE IART 03/03/22 18:15 03/03/22 18:16 DC 03/03/22 17:25 Verapamil HCl (Verapamil) 2.5 mg 1X ONCE IART 03/03/22 18:15 03/03/22 18:16 DC 03/03/22 17:25 Heparin Sodium (Porcine) (Heparin Sodium) 2,500 unit 1X ONCE IART 03/03/22 18:15 03/03/22 18:16 DC 03/03/22 17:28 Heparin Sodium/ Sodium Chloride (HEPARIN for ARTERIAL LINE FLUSH) 1,000 unit 1X ONCE IART 03/03/22 18:15 03/03/22 18:16 DC 03/03/22 17:45 Midazolam HCl (Versed) 2 mg 1X ONCE IV 03/03/22 18:15 03/03/22 18:16 DC 03/03/22 17:27 Fentanyl Citrate (Fentanyl 2ml Vial) 100 mcg 1X ONCE IV 03/03/22 18:15 03/03/22 18:16 DC 03/03/22 17:56 Iodixanol (Visipaque 320) 100 ml 1X ONCE IART 03/03/22 18:15 03/03/22 18:16 DC 03/03/22 18:15 Bivalirudin (Angiomax) 250 mg 1X ONCE IVP 03/03/22 18:15 03/03/22 18:16 DC 03/03/22 17:39 Lidocaine HCl (Xylocaine-Mpf 1% 2ml Vial) 2 ml 1X ONCE INJ 03/03/22 18:15 03/03/22 18:16 DC 03/03/22 17:13 Nitroglycerin (Nitroglycerin) 200 mcg 1X ONCE ICAR 03/03/22 18:15 03/03/22 18:16 DC 03/03/22 18:15 Clopidogrel Bisulfate (Plavix) 600 mg 1X ONCE PO 03/03/22 18:15 03/03/22 18:16 DC 03/03/22 18:15 Tirofiban/Sodium Chloride 250 ml @ 0 mls/hr CONT PRN IV PER PROTOCOL 03/03/22 18:15 03/04/22 12:14 03/03/22 18:15 Aspirin (Ecotrin) 325 mg DAILYWBKFT PO 03/04/22 08:00 03/04/22 08:33 Clopidogrel Bisulfate (Plavix) 75 mg DAILYWBKFT PO 03/04/22 08:00 03/04/22 08:33 Atorvastatin Calcium (Lipitor) 40 mg QHS PO 03/03/22 21:00 03/03/22 20:57 Calcium Gluconate (Calcium Gluconate) 1,000 mg 1X ONCE IVP 03/03/22 23:00 03/03/22 23:01 DC 03/03/22 22:40 Sodium Bicarbonate (Sodium Bicarb Adult 8.4% Syr) 50 meq 1X ONCE IV 03/03/22 23:00 03/03/22 23:01 DC 03/03/22 22:39 Dextrose (Dextrose 50%-Water Syringe) 25 gm 1X ONCE IV 03/03/22 23:00 03/03/22 23:01 DC 03/03/22 22:39 Insulin Human Regular (HumuLIN R VIAL) 10 unit 1X ONCE IV 03/03/22 23:00 03/03/22 23:01 DC 03/03/22 22:41 Furosemide (Lasix) 20 mg 1X ONCE IVP 03/03/22 23:00 03/03/22 23:01 DC 03/03/22 22:40 Fluticasone Propionate (Flonase) 2 spray DAILY NS 03/04/22 09:00 03/04/22 08:37 Justifications for Admission Other Justification TED MALHOTRA III DO March 04, 2022 11:56
[2022-03-04] MEDS: ATORVASTATIN CALCIUM 40 MG TABLET. PO SCH (20:26)
[2022-03-04] MEDS: METOPROLOL TART IMMED RELEASE 25 MG TABLET. PO SCH (20:28)
--- NOTE | 2022-03-04 22:09 | CONS ---
DATE OF CONSULTATION: 03/04/2022 REQUESTING PHYSICIAN: Hospitalist. REASON FOR CONSULTATION: Renal failure. HISTORY OF PRESENT ILLNESS: This is a 51-year-old gentleman who presents with history of diabetes mellitus and hypertension. He has now sustained ST segment elevated myocardial infarction. The day prior to this evaluation on 03/03/2022, he underwent cardiac catheterization requiring PTCA and stenting of left circumflex lesion. Pre-hospitalization, the patient was taking ibuprofen for right shoulder discomfort as well as hydrochlorothiazide. His potassium was elevated on presentation to 7 range. With acute management, it is now improved to 5. GFR is currently 33%, which is improving. In this setting, Nephrology evaluation requested. No difficulty with urination, nephrolithiasis or gross hematuria. He has only been diabetic for approximately 3 years. Of note, there is no history of diabetic retinopathy. PAST MEDICAL HISTORY: Diabetes mellitus, hypertension, triceps tear, teeth extraction. ALLERGIES: PENICILLIN. MEDICATIONS: Reviewed per medication list. FAMILY HISTORY: Noncontributory. SOCIAL HISTORY: The patient resides with family. No alcohol use, no tobacco use. REVIEW OF SYSTEMS: Other than the right shoulder pain on presentation, which is improved, chest pain, diaphoresis, nausea, vomiting, remaining review of systems noncontributory. PHYSICAL EXAMINATION: GENERAL APPEARANCE: The patient is awake, conversant, appropriate. HEENT: Clear. NECK: No increased JVD, no thyromegaly, masses or adenopathy. LUNGS: Clear. CARDIAC: Without S3 or rub. ABDOMEN: Soft, nontender, no bruits. EXTREMITIES: Without edema. NEUROLOGIC: Nonfocal, nonlocalized. PSYCHIATRIC: Good attention to detail, appropriate affect. LABORATORY DATA: Hemoglobin 12.2, hematocrit 37.4. Sodium 142, potassium 5, chloride 108, CO2 of 22, BUN 42, creatinine 2.1, GFR 33. IMPRESSION: 1. Renal failure -- acute versus chronic, to be determined. Has underlying hypertension, diabetes mellitus. There is no history of diabetic retinopathy. 2. Acute myocardial infarction. 3. Hyperkalemia on presentation. RECOMMENDATIONS: 1. Renal ultrasound. 2. No further NSAID use. Certainly may have been contributory to his acute renal failure on presentation. 3. Glucose control. 4. Blood pressure control. 5. Hydration as dictated by cardiopulmonary demands. We will follow. YANA DR: MBL/nts TID: [id number]
[2022-03-04] MEDS: ONDANSETRON PF 4 MG/2 ML VIAL. IVP PRN (23:08)
[2022-03-05] VITALS: BP 123/82
--- NOTE | 2022-03-05 00:32 | RAD ---
Renal ultrasound complete History: Reason: ARF/TECH NOTIFIED / Spl. Instructions: / History: Sonographic examination of the kidneys was performed and multiple static images were obtained. Right kidney: The right kidney is seen with no hydronephrosis and measures 11.3 cm in length. There is a 1.4 cm sim ple cyst in the mid right kidney. Left kidney: The left kidney is seen with no hydronephrosis and measures 11 cm in length. Urinary bladder: The urinary bladder appears normal. The prostate is mildly enlarged. Impression: No hydronephrosis. Electronically signed by: Harley Kaur III, MD (03/05/2022 12:30 AM) [facility]
[2022-03-05 04:00] VITALS: BP 133/73
[2022-03-05 07:07] LABS: ALBUMIN 2.4 g/dL (3.4-5.0); ALBUMIN/GLOBULIN RATIO 0.6 (1.0-1.7); CALCIUM 8.3 mg/dL (8.5-10.1); CREATININE 2.6 mg/dL (0.7-1.3); GFR 25.9; TOTAL BILIRUBIN 0.2 mg/dL (0.2-1.0); TOTAL PROTEIN 6.3 g/dL (6.4-8.2)
[2022-03-05 07:17] LABS: POTASSIUM 6.4 mmol/L (3.5-5.1)
[2022-03-05] MEDS: SENNOSIDES/DOCUSATE 8.6/50MG TABLET. PO SCH ×2 (08:18→21:00)
[2022-03-05] MEDS: FLUTICASONE 50MCG/NASAL SPRAY 16GM BOTTLE. NS SCH (08:18)
[2022-03-05] MEDS: CLOPIDOGREL BISULFATE 75 MG TABLET PO SCH (08:18)
[2022-03-05] MEDS: ASPIRIN ENTERIC COATED 325 MG TABLET.DR. PO SCH (08:18)
[2022-03-05] MEDS: METOPROLOL TART IMMED RELEASE 25 MG TABLET. PO SCH (08:19)
[2022-03-05] MEDS: CETIRIZINE HCL 10 MG TABLET. PO SCH (08:19)
[2022-03-05] MEDS: IV NORMAL SALINE 1000ML BAG 1,000 ML IV SCH (08:21)
[2022-03-05] MEDS: INSULIN LISPRO 300 UNITS/3 ML VIAL. SQ SCH ×3 (08:25→17:00)
[2022-03-05] MEDS ORDERED: SODIUM POLYSTYRENE SULFON/SORB 15 GM/60 ML ORAL.SUSP. PO ONE (08:45)
[2022-03-05] MEDS ORDERED: metOLazone 2.5 MG TABLET PO ONE (08:45)
--- NOTE | 2022-03-05 09:05 | PDOC ---
PROGRESS NOTES Date of Service: DATE: 03/05/22 TIME: 09:05 Subjective Subjective Denied any chest pain or shortness of breath Objective Objective Vital Signs Date Time Temp Pulse Resp B/P (MAP) Pulse Ox O2 Delivery O2 Flow Rate FiO2 03/05/22 08:19 103 166/116 03/05/22 08:04 Room Air 03/05/22 04:00 98.3 16 99 98.3 Intake and Output 03/05/22 07:00 Intake Total 3566.74 ml Output Total 625 ml Balance 2941.74 ml Intake Oral 1000 ml IV Total 2566.74 ml Output Urine Total 625 ml Physical Exam Abdomen: Soft, No tenderness Heart: Regular rate (SR), Normal S1, Normal S2, No murmurs Extremities: No cyanosis, No edema General: Alert, Oriented X3, Cooperative, No acute distress HEENT: Atraumatic, Mucous membr. moist/pink Lungs: Clear to auscultation, Normal air movement MUSCULOSKELETAL: Full range of motion without pain Neuro: Normal speech, Sensation intact Psych/Mental Status: Other (drowsy) Skin: No breakdown, No significant lesion Assessment Assessment 1. Acute non-STEMI: Cardiac catheterization yesterday showed 100% occluded large caliber left circumflex artery. He underwent successful PCI/FAISAL placement. Telemetry showed few brief episodes of NSVT. Continue dual antiplatelet therapy. 2. Acute combined systolic and diastolic heart failure: 2D echo showed LVEF 45% with basal to mid inferior, posterior and lateral wall hypokinesis. He is clinically well compensated. 3. Accelerated hypertension: Blood pressure better controlled but still slightly elevated. Increase metoprolol dose for better control. 4. Acute on chronic renal insufficiency, hyperkalemia: Potassium decreased again to 6.4 and BUN/creatinine 49/2.6. Nephrology following. 5. Hyperlipidemia: LDL significantly elevated at 247. Patient has history of fatty liver and LFTs are slightly elevated. Continue statin therapy for now and repeat LFTs in 1 to 2 days. If they continue to increase, we will consider PCSK9 inhibitors, although these might be expensive due to his lack of insurance. 6. DM2: Treat per IM Comment Review of Relevant I have reviewed the following items eliud (where applicable) has been applied. Labs Laboratory Tests Test 03/04/22 12:07 03/04/22 17:35 03/05/22 06:40 Glucose (Fingerstick) 187 mg/dL (70-99) 128 mg/dL (70-99) Sodium Level 138 mmol/L (136-145) Potassium Level 6.4 mmol/L (3.5-5.1) Chloride Level 108 mmol/L (98-107) Carbon Dioxide Level 20 mmol/L (21-32) Anion Gap 10 (6-14) Blood Urea Nitrogen 49 mg/dL (8-26) Creatinine 2.6 mg/dL (0.7-1.3) Estimated GFR (Cockcroft-Gault) 25.9 BUN/Creatinine Ratio 19 (6-20) Glucose Level 174 mg/dL (70-99) Calcium Level 8.3 mg/dL (8.5-10.1) Total Bilirubin 0.2 mg/dL (0.2-1.0) Aspartate Amino Transf (AST/SGOT) 399 U/L (15-37) Alanine Aminotransferase (ALT/SGPT) 163 U/L (16-63) Alkaline Phosphatase 113 U/L (46-116) Total Protein 6.3 g/dL (6.4-8.2) Albumin 2.4 g/dL (3.4-5.0) Albumin/Globulin Ratio 0.6 (1.0-1.7) Medications Current Medications Metolazone (Zaroxolyn) 5 mg 1X ONCE PO ; Start 03/05/22 at 08:45; Stop 03/05/22 at 09:04; Status DC Metoprolol Tartrate (Lopressor) 12.5 mg BID PO Last administered on 03/05/22at 08:19; Start 03/04/22 at 21:00 Sodium Polystyrene Sulfonate (Kayexalate) 30 gm 1X ONCE PO ; Start 03/05/22 at 08:45; Stop 03/05/22 at 09:04; Status DC Vitals/I & O Vital Sign - Last 24 Hours 03/04/22 03/04/22 03/04/22 03/04/22 10:00 12:00 16:00 20:00 Temp 97.7 98.1 98.3 97.7 98.1 98.3 Pulse 101 96 96 105 Resp 16 16 16 18 B/P (MAP) 137/91 (106) 154/92 (112) 145/99 (114) 159/93 (115) Pulse Ox 98 98 98 99 O2 Delivery Room Air Room Air Room Air Room Air 03/04/22 03/04/22 03/05/22 03/05/22 20:00 20:28 00:00 04:00 Temp 97.9 98.3 97.9 98.3 Pulse 105 96 92 Resp 18 16 B/P (MAP) 159/93 123/82 (96) 133/73 (93) Pulse Ox 98 99 O2 Delivery Room Air Room Air Room Air 03/05/22 03/05/22 08:04 08:19 Pulse 103 B/P (MAP) 166/116 O2 Delivery Room Air Intake and Output 03/04/22 03/04/22 03/05/22 15:00 23:00 07:00 Intake Total 1000 ml 1347 ml 1219.74 ml Output Total 375 ml 250 ml Balance 625 ml 1097 ml 1219.74 ml JESSENIA CLARK MD March 05, 2022 09:05
[2022-03-05 10:26] VITALS: BP 166/106
[2022-03-05 11:58] LABS: PROTHROMBIN TIME PATIENT 13.3 SEC (11.7-14.0)
[2022-03-05 12:00] VITALS: BP 170/110
[2022-03-05] MEDS: metOLazone 2.5 MG TABLET PO SCH (12:00)
[2022-03-05] MEDS: hydrALAZINE 20 MG/ML VIAL. IVP PRN ×2 (12:05→17:49)
--- NOTE | 2022-03-05 12:09 | PDOC ---
PROGRESS NOTES Date of Service DATE: 03/05/22 TIME: 12:07 Subjective Subjective SEEN IN FOLLOW UP OF ARF/?CKD AND HYPERK+ Objective Objective Vital Signs Date Time Temp Pulse Resp B/P (MAP) Pulse Ox O2 Delivery O2 Flow Rate FiO2 03/05/22 12:05 100 170/110 03/05/22 10:26 98.2 18 99 Room Air 98.2 03/03/22 18:38 4.0 Intake and Output 03/05/22 06:59 Intake Total 3566.74 ml Output Total 625 ml Balance 2941.74 ml Intake Oral 1000 ml IV Total 2566.74 ml Output Urine Total 625 ml Physical Exam Abdomen: Normal bowel sounds, Soft, No tenderness, No hepatosplenomegaly, No masses Heart: Regular rate, Normal S1, Normal S2, No murmurs, Gallops Extremities: No clubbing, No cyanosis, No edema, Normal pulses, No tenderness/swelling General: Alert, Oriented X3, Cooperative, No acute distress Lungs: Clear to auscultation, Normal air movement Psych/Mental Status: Mental status NL, Mood NL Diagnosis RENAL FAILURE: Acute (Acute tubular necrosis) Plan Plan of Care RENAL FUNCTION REMAINS REDUCED. K+ ELEVATED. WILL GIVE KAYEXALATE AND START PO METOLAZONE. TREND LAB. Comment Review of Relevant I have reviewed the following items eliud (where applicable) has been applied. Labs Laboratory Tests Test 03/03/22 14:50 03/03/22 15:29 03/03/22 19:07 03/03/22 21:45 Urine Collection Type Unknown Urine Color (Auto) Light yellow Urine Turbidity Clear Urine pH (Auto) 6.5 (<5.0-8.0) Urine Specific [place] 1.016 (1.000-1.030) Urine Protein (Auto) 300 mg/dL (Negative) Urine Glucose (Auto)(UA) 100 mg/dL (Negative) Urine Ketones (Auto) Trace mg/dL (Negative) Urine Blood (Auto) Moderate (Negative) Urine Nitrite (Auto) Negative (Negative) Urine Bilirubin (Auto) Negative (Negative) Urine Urobilinogen (Auto) Normal mg/dL (Normal) Urine Leukocyte Esterase (Auto) Negative (Negative) Urine RBC 11-20 /HPF (0-2) Urine WBC 1-4 /HPF (0-4) Urine Squamous Epithelial Cells Few /LPF Urine Bacteria 0 /HPF (0-FEW) Urine Hyaline Casts Moderate /HPF Urine Mucus Slight /LPF Urine Opiates Screen Neg (NEG) Urine Methadone Screen Neg (NEG) Urine Barbiturates Neg (NEG) Urine Phencyclidine Screen Neg (NEG) Urine Amphetamine/Methamphetamine Neg (NEG) Urine Benzodiazepines Screen Neg (NEG) Urine Cocaine Screen Neg (NEG) Urine Cannabinoids Screen Neg (NEG) Urine Ethyl Alcohol Neg (NEG) White Blood Count 10.7 x10^3/uL (4.0-11.0) Red Blood Count 4.67 x10^6/uL (4.30-5.70) Hemoglobin 12.2 g/dL (13.0-17.5) Hematocrit 37.4 % (39.0-53.0) Mean Corpuscular Volume 80 fL (79-100) Mean Corpuscular Hemoglobin 26 pg (25-35) Mean Corpuscular Hemoglobin Concent 33 g/dL (31-37) Red Cell Distribution Width 14.6 % (11.5-14.5) Platelet Count 354 x10^3/uL (140-400) Neutrophils (%) (Auto) 87 % (31-73) Lymphocytes (%) (Auto) 10 % (24-48) Monocytes (%) (Auto) 3 % (0-9) Eosinophils (%) (Auto) 0 % (0-3) Basophils (%) (Auto) 1 % (0-3) Neutrophils # (Auto) 9.3 x10^3/uL (1.8-7.7) Lymphocytes # (Auto) 1.0 x10^3/uL (1.0-4.8) Monocytes # (Auto) 0.3 x10^3/uL (0.0-1.1) Eosinophils # (Auto) 0.0 x10^3/uL (0.0-0.7) Basophils # (Auto) 0.1 x10^3/uL (0.0-0.2) Prothrombin Time 13.9 SEC (11.7-14.0) Prothromb Time International Ratio 1.1 (0.8-1.1) Activated Partial Thromboplast Time 145 SEC (24-38) Sodium Level 139 mmol/L (136-145) Potassium Level 7.3 mmol/L (3.5-5.1) 7.2 mmol/L (3.5-5.1) Chloride Level 106 mmol/L (98-107) Carbon Dioxide Level 19 mmol/L (21-32) Anion Gap 14 (6-14) Blood Urea Nitrogen 48 mg/dL (8-26) Creatinine 2.3 mg/dL (0.7-1.3) Estimated GFR (Cockcroft-Gault) 29.9 Glucose Level 213 mg/dL (70-99) Calcium Level 9.8 mg/dL (8.5-10.1) Troponin I High Sensitivity 1170 ng/L (4-75) Thyroid Stimulating Hormone (TSH) 1.093 uIU/mL (0.358-3.74) Glucose (Fingerstick) 152 mg/dL (70-99) Test 03/04/22 07:40 03/04/22 12:07 03/04/22 17:35 03/05/22 06:40 Sodium Level 142 mmol/L (136-145) 138 mmol/L (136-145) Potassium Level 5.0 mmol/L (3.5-5.1) 6.4 mmol/L (3.5-5.1) Chloride Level 108 mmol/L (98-107) 108 mmol/L (98-107) Carbon Dioxide Level 22 mmol/L (21-32) 20 mmol/L (21-32) Anion Gap 12 (6-14) 10 (6-14) Blood Urea Nitrogen 42 mg/dL (8-26) 49 mg/dL (8-26) Creatinine 2.1 mg/dL (0.7-1.3) 2.6 mg/dL (0.7-1.3) Estimated GFR (Cockcroft-Gault) 33.2 25.9 Glucose Level 149 mg/dL (70-99) 174 mg/dL (70-99) Calcium Level 9.1 mg/dL (8.5-10.1) 8.3 mg/dL (8.5-10.1) Magnesium Level 1.9 mg/dL (1.8-2.4) Triglycerides Level 152 mg/dL (0-150) Cholesterol Level 316 mg/dL (0-200) LDL Cholesterol, Calculated 247 mg/dL (0-100) VLDL Cholesterol, Calculated 30 mg/dL (0-40) Non-HDL Cholesterol Calculated 277 mg/dL (0-129) HDL Cholesterol 39 mg/dL (40-60) Cholesterol/HDL Ratio 8.1 Glucose (Fingerstick) 187 mg/dL (70-99) 128 mg/dL (70-99) BUN/Creatinine Ratio 19 (6-20) Total Bilirubin 0.2 mg/dL (0.2-1.0) Aspartate Amino Transf (AST/SGOT) 399 U/L (15-37) Alanine Aminotransferase (ALT/SGPT) 163 U/L (16-63) Alkaline Phosphatase 113 U/L (46-116) Total Protein 6.3 g/dL (6.4-8.2) Albumin 2.4 g/dL (3.4-5.0) Albumin/Globulin Ratio 0.6 (1.0-1.7) Test 03/05/22 11:34 03/05/22 12:02 Prothrombin Time 13.3 SEC (11.7-14.0) Prothromb Time International Ratio 1.0 (0.8-1.1) Glucose (Fingerstick) 152 mg/dL (70-99) Laboratory Tests Test 03/04/22 17:35 03/05/22 06:40 03/05/22 11:34 03/05/22 12:02 Glucose (Fingerstick) 128 mg/dL (70-99) 152 mg/dL (70-99) Sodium Level 138 mmol/L (136-145) Potassium Level 6.4 mmol/L (3.5-5.1) Chloride Level 108 mmol/L (98-107) Carbon Dioxide Level 20 mmol/L (21-32) Anion Gap 10 (6-14) Blood Urea Nitrogen 49 mg/dL (8-26) Creatinine 2.6 mg/dL (0.7-1.3) Estimated GFR (Cockcroft-Gault) 25.9 BUN/Creatinine Ratio 19 (6-20) Glucose Level 174 mg/dL (70-99) Calcium Level 8.3 mg/dL (8.5-10.1) Total Bilirubin 0.2 mg/dL (0.2-1.0) Aspartate Amino Transf (AST/SGOT) 399 U/L (15-37) Alanine Aminotransferase (ALT/SGPT) 163 U/L (16-63) Alkaline Phosphatase 113 U/L (46-116) Total Protein 6.3 g/dL (6.4-8.2) Albumin 2.4 g/dL (3.4-5.0) Albumin/Globulin Ratio 0.6 (1.0-1.7) Prothrombin Time 13.3 SEC (11.7-14.0) Prothromb Time International Ratio 1.0 (0.8-1.1) Medications Current Medications Lorazepam (Ativan Inj) 2 mg 1X ONCE IVP Last administered on 03/03/22at 15:05; Start 03/03/22 at 15:00; Stop 03/03/22 at 15:01; Status DC Hydralazine HCl (Apresoline Inj) 10 mg PRN Q4HRS PRN IVP ELEVATED BP, SEE COMMENTS Last administered on 03/05/22at 12:05; Start 03/03/22 at 15:00 Morphine Sulfate (Morphine Sulfate) 2 mg PRN Q2HR PRN IVP MODERATE TO SEVERE PAIN Last administered on 03/03/22at 15:34; Start 03/03/22 at 15:00 Nitroglycerin (Nitrostat) 0.4 mg PRN Q5MIN PRN SL CHEST PAIN; Start 03/03/22 at 15:00 Aspirin (Ecotrin) 81 mg DAILYWBKFT PO ; Start 03/04/22 at 08:00; Stop 03/03/22 at 18:26; Status DC Heparin Sodium/ Dextrose 250 ml @ 10 mls/hr CONT PRN IV PER PROTOCOL; Start 03/03/22 at 15:15; Stop 03/03/22 at 18:25; Status DC Heparin Sodium (Porcine) (Heparin Sodium) 2,450 unit PRN Q6HRS PRN IV FOR UFH LEVEL LESS THAN 0.2; Start 03/03/22 at 15:15; Stop 03/03/22 at 18:25; Status DC Cetirizine HCl (ZyrTEC) 10 mg DAILY PO Last administered on 03/05/22at 08:19; Start 03/04/22 at 09:00 Lisinopril (Prinivil) 20 mg DAILY PO ; Start 03/04/22 at 09:00; Stop 03/03/22 at 16:56; Status DC Triamterene/HCTZ (Maxzide 37.5/ 25mg) 2 tab DAILY PO ; Start 03/04/22 at 09:00; Stop 03/03/22 at 16:56; Status DC Insulin Human Lispro (HumaLOG) 0-7 UNITS TIDWMEALS SQ Last administered on 03/05/22at 12:05; Start 03/03/22 at 17:00 Dextrose (Dextrose 50%-Water Syringe) 12.5 gm PRN Q15MIN PRN IV SEE COMMENTS; Start 03/03/22 at 16:00 Ondansetron HCl (Zofran) 4 mg PRN Q6HRS PRN IVP NAUSEA/VOMITING Last administered on 03/04/22at 23:08; Start 03/03/22 at 16:15 Calcium Carbonate/ Glycine (Tums) 500 mg PRN Q3HRS PRN PO UPSET STOMACH; Start 03/03/22 at 16:15 Zolpidem Tartrate (Ambien) 5 mg PRN QHS PRN PO INSOMNIA, MAY REPEAT IN 1HR; Start 03/03/22 at 16:15 Info (Non-Icu Electrolyte Protocol) 1 ea PRN DAILY PRN MC SEE COMMENTS; Start 03/03/22 at 16:15 Oxycodone/ Acetaminophen (Percocet 5/325) 1 tab PRN Q4HRS PRN PO MILD PAIN, 1ST CHOICE; Start 03/03/22 at 16:15 Oxycodone/ Acetaminophen (Percocet 5/325) 2 tab PRN Q4HRS PRN PO MODERATE PAIN, SEVERE PAIN; Start 03/03/22 at 16:15 Acetaminophen (Tylenol) 650 mg PRN Q6HRS PRN PO Headaches, Temp > 101.5F; Start 03/03/22 at 16:15 Senna/Docusate Sodium (Senna Plus) 1 tab BID PO Last administered on 03/05/22at 08:18; Start 03/03/22 at 21:00 Calcium Gluconate (Calcium Gluconate) 1,000 mg 1X ONCE IVP Last administered on 03/03/22at 16:42; Start 03/03/22 at 17:00; Stop 03/03/22 at 17:01; Status DC Sodium Bicarbonate (Sodium Bicarb Adult 8.4% Syr) 50 meq 1X ONCE IV Last administered on 03/03/22at 16:41; Start 03/03/22 at 17:00; Stop 03/03/22 at 17:01; Status DC Dextrose (Dextrose 50%-Water Syringe) 25 gm 1X ONCE IV Last administered on 03/03/22at 16:41; Start 03/03/22 at 17:00; Stop 03/03/22 at 17:01; Status DC Insulin Human Regular (HumuLIN R VIAL) 10 unit 1X ONCE IV Last administered on 03/03/22at 16:41; Start 03/03/22 at 17:00; Stop 03/03/22 at 17:01; Status DC Sodium Polystyrene Sulfonate (Kayexalate) 30 gm 1X ONCE PO Last administered on 03/03/22at 16:47; Start 03/03/22 at 17:00; Stop 03/03/22 at 17:01; Status DC Sodium Chloride 1,000 ml @ 100 mls/hr Q10H IV Last administered on 03/05/22at 08:21; Start 03/03/22 at 16:45; Stop 03/05/22 at 11:47; Status DC Iodixanol (Visipaque 320) 100 ml STK-MED ONCE .ROUTE ; Start 03/03/22 at 17:02; Stop 03/03/22 at 17:02; Status DC Lidocaine HCl (Xylocaine-Mpf 1% 2ml Vial) 2 ml STK-MED ONCE .ROUTE ; Start 03/03/22 at 17:02; Stop 03/03/22 at 17:02; Status DC Heparin Sodium/ Sodium Chloride 1,500 ml @ As Directed STK-MED ONCE .ROUTE ; Start 03/03/22 at 17:02; Stop 03/03/22 at 17:02; Status DC Fentanyl Citrate (Fentanyl 2ml Vial) 100 mcg STK-MED ONCE .ROUTE ; Start 03/03/22 at 17:03; Stop 03/03/22 at 17:03; Status DC Midazolam HCl (Versed) 2 mg STK-MED ONCE .ROUTE ; Start 03/03/22 at 17:03; Stop 03/03/22 at 17:03; Status DC Bivalirudin (Angiomax) 250 mg STK-MED ONCE IVP ; Start 03/03/22 at 17:03; Stop 03/03/22 at 17:03; Status DC Heparin Sodium (Porcine) (Heparin Sodium) 10,000 unit STK-MED ONCE .ROUTE ; Start 03/03/22 at 17:03; Stop 03/03/22 at 17:03; Status DC Verapamil HCl (Verapamil) 5 mg STK-MED ONCE .ROUTE ; Start 03/03/22 at 17:03; Stop 03/03/22 at 17:04; Status DC Nitroglycerin (Nitroglycerin) 200 mcg STK-MED ONCE .ROUTE ; Start 03/03/22 at 17:03; Stop 03/03/22 at 17:04; Status DC Nitroglycerin (Nitroglycerin) 200 mcg 1X ONCE IART Last administered on 03/03/22at 17:25; Start 03/03/22 at 18:15; Stop 03/03/22 at 18:16; Status DC Verapamil HCl (Verapamil) 2.5 mg 1X ONCE IART Last administered on 03/03/22at 17:25; Start 03/03/22 at 18:15; Stop 03/03/22 at 18:16; Status DC Heparin Sodium (Porcine) (Heparin Sodium) 2,500 unit 1X ONCE IART Last administered on 03/03/22at 17:28; Start 03/03/22 at 18:15; Stop 03/03/22 at 18:16; Status DC Heparin Sodium/ Sodium Chloride (HEPARIN for ARTERIAL LINE FLUSH) 1,000 unit 1X ONCE IART Last administered on 03/03/22at 17:45; Start 03/03/22 at 18:15; Stop 03/03/22 at 18:16; Status DC Midazolam HCl (Versed) 2 mg 1X ONCE IV Last administered on 03/03/22at 17:27; Start 03/03/22 at 18:15; Stop 03/03/22 at 18:16; Status DC Fentanyl Citrate (Fentanyl 2ml Vial) 100 mcg 1X ONCE IV Last administered on 03/03/22at 17:56; Start 03/03/22 at 18:15; Stop 03/03/22 at 18:16; Status DC Iodixanol (Visipaque 320) 100 ml 1X ONCE IART Last administered on 03/03/22at 18:15; Start 03/03/22 at 18:15; Stop 03/03/22 at 18:16; Status DC Bivalirudin (Angiomax) 250 mg 1X ONCE IVP Last administered on 03/03/22at 17:39; Start 03/03/22 at 18:15; Stop 03/03/22 at 18:16; Status DC Lidocaine HCl (Xylocaine-Mpf 1% 2ml Vial) 2 ml 1X ONCE INJ Last administered on 03/03/22at 17:13; Start 03/03/22 at 18:15; Stop 03/03/22 at 18:16; Status DC Nitroglycerin (Nitroglycerin) 200 mcg 1X ONCE ICAR Last administered on 03/03/22at 18:15; Start 03/03/22 at 18:15; Stop 03/03/22 at 18:16; Status DC Clopidogrel Bisulfate (Plavix) 600 mg 1X ONCE PO Last administered on 03/03/22at 18:15; Start 03/03/22 at 18:15; Stop 03/03/22 at 18:16; Status DC Tirofiban/Sodium Chloride 250 ml @ 0 mls/hr CONT PRN IV PER PROTOCOL Last administered on 03/03/22at 18:15; Start 03/03/22 at 18:15; Stop 03/04/22 at 12:14; Status DC Nitroglycerin (Nitroglycerin) 200 mcg STK-MED ONCE .ROUTE ; Start 03/03/22 at 18:12; Stop 03/03/22 at 18:12; Status DC Sodium Chloride 1,000 ml @ 75 mls/hr [id number] IV ; Start 03/03/22 at 18:30; Stop 03/04/22 at 16:24; Status DC Aspirin (Ecotrin) 325 mg DAILYWBKFT PO Last administered on 03/05/22at 08:18; Start 03/04/22 at 08:00 Clopidogrel Bisulfate (Plavix) 75 mg DAILYWBKFT PO Last administered on 03/05/22at 08:18; Start 03/04/22 at 08:00 Atorvastatin Calcium (Lipitor) 40 mg QHS PO Last administered on 03/04/22at 20:26; Start 03/03/22 at 21:00 Calcium Gluconate (Calcium Gluconate) 1,000 mg 1X ONCE IVP Last administered on 03/03/22at 22:40; Start 03/03/22 at 23:00; Stop 03/03/22 at 23:01; Status DC Sodium Bicarbonate (Sodium Bicarb Adult 8.4% Syr) 50 meq 1X ONCE IV Last administered on 03/03/22at 22:39; Start 03/03/22 at 23:00; Stop 03/03/22 at 23:0 1; Status DC Dextrose (Dextrose 50%-Water Syringe) 25 gm 1X ONCE IV Last administered on 03/03/22at 22:39; Start 03/03/22 at 23:00; Stop 03/03/22 at 23:01; Status DC Insulin Human Regular (HumuLIN R VIAL) 10 unit 1X ONCE IV Last administered on 03/03/22at 22:41; Start 03/03/22 at 23:00; Stop 03/03/22 at 23:01; Status DC Furosemide (Lasix) 20 mg 1X ONCE IVP Last administered on 03/03/22at 22:40; Start 03/03/22 at 23:00; Stop 03/03/22 at 23:01; Status DC Fluticasone Propionate (Flonase) 2 spray DAILY NS Last administered on 03/05/22at 08:18; Start 03/04/22 at 09:00 Metoprolol Tartrate (Lopressor) 12.5 mg BID PO Last administered on 03/05/22at 08:19; Start 03/04/22 at 21:00; Stop 03/05/22 at 10:46; Status DC Sodium Polystyrene Sulfonate (Kayexalate) 30 gm 1X ONCE PO Last administered on 03/05/22at 09:13; Start 03/05/22 at 08:45; Stop 03/05/22 at 09:04; Status DC Metolazone (Zaroxolyn) 5 mg 1X ONCE PO Last administered on 03/05/22at 09:19; Start 03/05/22 at 08:45; Stop 03/05/22 at 09:04; Status DC Metoprolol Tartrate (Lopressor) 25 mg BID PO ; Start 03/05/22 at 21:00 Metolazone (Zaroxolyn) 5 mg DAILY PO ; Start 03/05/22 at 12:00 Active Scripts Active Reported Novolog (Insulin Aspart) 100 Unit/1 Ml Cartridge 100 Unit SQ TIDAFTMEAL PRN PRN Tresiba (Insulin Degludec) 100 Unit/1 Ml Vial 100 Unit SQ DAILY Cetirizine Hcl 10 Mg Tablet 10 Mg PO DAILY Lisinopril 20 Mg Tablet 1 Tab PO DAILY Triamterene-Hctz 75-50 Mg Tab (Triamterene/Hydrochlorothiazid) 1 Each Tablet 1 Tab PO DAILY Vitals/I & O Vital Sign - Last 24 Hours 03/04/22 03/04/22 03/04/22 03/04/22 16:00 20:00 20:00 20:28 Temp 98.1 98.3 98.1 98.3 Pulse 96 105 105 Resp 16 18 B/P (MAP) 145/99 (114) 159/93 (115) 159/93 Pulse Ox 98 99 O2 Delivery Room Air Room Air Room Air 03/05/22 03/05/22 03/05/22 03/05/22 00:00 04:00 08:04 08:19 Temp 97.9 98.3 97.9 98.3 Pulse 96 92 103 Resp 18 16 B/P (MAP) 123/82 (96) 133/73 (93) 166/116 Pulse Ox 98 99 O2 Delivery Room Air Room Air Room Air 03/05/22 03/05/22 10:26 12:05 Temp 98.2 98.2 Pulse 98 100 Resp 18 B/P (MAP) 166/106 (126) 170/110 Pulse Ox 99 O2 Delivery Room Air Intake and Output 03/04/22 03/04/22 03/05/22 14:59 22:59 06:59 Intake Total 1000 ml 1347 ml 1219.74 ml Output Total 375 ml 250 ml Balance 625 ml 1097 ml 1219.74 ml Justifications for Admission Other Justification NARINDER RAHMAN MD March 05, 2022 12:09
--- NOTE | 2022-03-05 12:50 | PDOC ---
[facility] PROGRESS NOTE Date of Service DOS: DATE: 03/05/22 TIME: 12:46 Chief Complaint Chief Complaint Acute [facility] status post cardiac cath with stent to the circumflex Probable noncompliance with going to the doctor per his significant other Jeimy Probable longstanding hypertension contributing to chronic renal insufficiency Baseline creatinine 2.1 WINNIE/CKD Hyperkalemia Transaminase-itis Diabetes Headache Right elbow olecranon bursitis? History of Present Illness History of Present Illness 03/05/2022 Patient seen and examined Discussed with his significant other and I reviewed the chart with her per his request Discussed with Dr. You Discussed with RN Chart reviewed His potassium was up to 6.4 today we are giving Kayexalate Nephrology also started Zaroxolyn 03/04/2022 Patient seen and examined in the ICU He is currently on Aggrastat drip Tolerated his cardiac cath with stent to the circumflex yesterday Discussed with RN Chart reviewed Vitals/I&O Vitals/I&O: Vital Signs Date Time Temp Pulse Resp B/P (MAP) Pulse Ox O2 Delivery O2 Flow Rate FiO2 03/05/22 12:05 100 170/110 03/05/22 12:00 98.6 16 99 Room Air 98.6 I & O 03/04/22 03/04/22 03/05/22 15:00 23:00 07:00 Intake Total 1000 ml 1347 ml 1219.74 ml Output Total 375 ml 250 ml Balance 625 ml 1097 ml 1219.74 ml Physical Exam General: Alert, Oriented X3, Cooperative, No acute distress Heart: Regular rate, Normal S1, Normal S2, No murmurs, Gallops Abdomen: Normal bowel sounds, Soft, No tenderness, No hepatosplenomegaly, No masses Extremities: No clubbing, No cyanosis, No edema, Normal pulses, No tenderness/swelling Skin: No breakdown, No significant lesion Labs Labs: Laboratory Tests Test 03/04/22 17:35 03/05/22 06:40 03/05/22 11:34 03/05/22 12:02 Glucose (Fingerstick) 128 mg/dL (70-99) 152 mg/dL (70-99) Sodium Level 138 mmol/L (136-145) Potassium Level 6.4 mmol/L (3.5-5.1) Chloride Level 108 mmol/L (98-107) Carbon Dioxide Level 20 mmol/L (21-32) Anion Gap 10 (6-14) Blood Urea Nitrogen 49 mg/dL (8-26) Creatinine 2.6 mg/dL (0.7-1.3) Estimated GFR (Cockcroft-Gault) 25.9 BUN/Creatinine Ratio 19 (6-20) Glucose Level 174 mg/dL (70-99) Calcium Level 8.3 mg/dL (8.5-10.1) Total Bilirubin 0.2 mg/dL (0.2-1.0) Aspartate Amino Transf (AST/SGOT) 399 U/L (15-37) Alanine Aminotransferase (ALT/SGPT) 163 U/L (16-63) Alkaline Phosphatase 113 U/L (46-116) Total Protein 6.3 g/dL (6.4-8.2) Albumin 2.4 g/dL (3.4-5.0) Albumin/Globulin Ratio 0.6 (1.0-1.7) Prothrombin Time 13.3 SEC (11.7-14.0) Prothromb Time International Ratio 1.0 (0.8-1.1) Assessment and Plan Assessmemt and Plan Acute [facility] status post cardiac cath with stent to the circumflex Acute on chronic elevated creatinine Probable noncompliance with going to the doctor per his significant other Jeimy Probable longstanding hypertension contributing to chronic renal insufficiency Baseline creatinine 2.1 WINNIE/CKD Hyperkalemia Diabetes Headache Right elbow olecranon bursitis? Plan ICU monitoring Cardiac cocktail with Plavix Zocor metoprolol aspirin Nephrology following Zaroxolyn per nephrology Hold PAULETTE inhibitor Appreciate cardiology intervention Appreciate nephrology input Cardiac diet Trend labs Home meds DVT prophylaxis Full code Comment Review of Relevant I have reviewed the following items eliud (where applicable) has been applied. Medications: Current Medications Medications (Trade) Dose Ordered Sig/[place] Route PRN Reason Start Time Stop Time Status Last Admin Dose Admin Metoprolol Tartrate (Lopressor) 12.5 mg BID PO 03/04/22 21:00 03/05/22 10:46 DC 03/05/22 08:19 Sodium Polystyrene Sulfonate (Kayexalate) 30 gm 1X ONCE PO 03/05/22 08:45 03/05/22 09:04 DC 03/05/22 09:13 Metolazone (Zaroxolyn) 5 mg 1X ONCE PO 03/05/22 08:45 03/05/22 09:04 DC 03/05/22 09:19 Justifications for Admission Other Justification TED MALHOTRA III DO March 05, 2022 12:50
--- NOTE | 2022-03-05 15:08 | PDOC2 ---
CONSULT Date of Consult Date of Consult DATE: 03/05/22 TIME: 14:51 Reason for Consult Reason for Consult: abnormal liver tranasaminases History of Present Illness Reason for Visit: This is a 51 YO male who presented with new onset chest pain and was diagnosed with acute WA and underwent cath with stent placement on 03/03/2022. Initial labs revealed significantly elevated tropinin (1100) but LFTS was not done at that time. Today, AST was 399, ALT was 163 with NORMAL alk phos and bilirubin levels. Also has significant renal dysfunction likely acute and chronic with history of HTN and DM. He denies alcohol use and has never been told he had abnormal LFTS before- but we don't have those records. He recalls being told he had "fatty liver" 15-20 years ago, but the details on that are not available. Past Medical History Cardiovascular: HTN Hepatobiliary: Other (fatty liver by history) Musculoskeletal: Other (tricep tear) Renal/: Chronic renal insuff (?) Endocrine: Diabetes Past Surgical History Past Surgical History: Other (teeth extraction) Social History No ALCOHOL: none Drugs: None Lives: with Family Current Medications Current Medications Current Medications Lorazepam (Ativan Inj) 2 mg 1X ONCE IVP Last administered on 03/03/22at 15:05; Start 03/03/22 at 15:00; Stop 03/03/22 at 15:01; Status DC Hydralazine HCl (Apresoline Inj) 10 mg PRN Q4HRS PRN IVP ELEVATED BP, SEE COMMENTS Last administered on 03/05/22at 12:05; Start 03/03/22 at 15:00 Morphine Sulfate (Morphine Sulfate) 2 mg PRN Q2HR PRN IVP MODERATE TO SEVERE PAIN Last administered on 03/03/22at 15:34; Start 03/03/22 at 15:00 Nitroglycerin (Nitrostat) 0.4 mg PRN Q5MIN PRN SL CHEST PAIN; Start 03/03/22 at 15:00 Aspirin (Ecotrin) 81 mg DAILYWBKFT PO ; Start 03/04/22 at 08:00; Stop 03/03/22 at 18:26; Status DC Heparin Sodium/ Dextrose 250 ml @ 10 mls/hr CONT PRN IV PER PROTOCOL; Start 03/03/22 at 15:15; Stop 03/03/22 at 18:25; Status DC Heparin Sodium (Porcine) (Heparin Sodium) 2,450 unit PRN Q6HRS PRN IV FOR UFH LEVEL LESS THAN 0.2; Start 03/03/22 at 15:15; Stop 03/03/22 at 18:25; Status DC Cetirizine HCl (ZyrTEC) 10 mg DAILY PO Last administered on 03/05/22at 08:19; Start 03/04/22 at 09:00 Lisinopril (Prinivil) 20 mg DAILY PO ; Start 03/04/22 at 09:00; Stop 03/03/22 at 16:56; Status DC Triamterene/HCTZ (Maxzide 37.5/ 25mg) 2 tab DAILY PO ; Start 03/04/22 at 09:00; Stop 03/03/22 at 16:56; Status DC Insulin Human Lispro (HumaLOG) 0-7 UNITS TIDWMEALS SQ Last administered on 03/05/22at 12:05; Start 03/03/22 at 17:00 Dextrose (Dextrose 50%-Water Syringe) 12.5 gm PRN Q15MIN PRN IV SEE COMMENTS; Start 03/03/22 at 16:00 Ondansetron HCl (Zofran) 4 mg PRN Q6HRS PRN IVP NAUSEA/VOMITING Last administered on 03/04/22at 23:08; Start 03/03/22 at 16:15 Calcium Carbonate/ Glycine (Tums) 500 mg PRN Q3HRS PRN PO UPSET STOMACH; Start 03/03/22 at 16:15 Zolpidem Tartrate (Ambien) 5 mg PRN QHS PRN PO INSOMNIA, MAY REPEAT IN 1HR; Start 03/03/22 at 16:15 Info (Non-Icu Electrolyte Protocol) 1 ea PRN DAILY PRN MC SEE COMMENTS; Start 03/03/22 at 16:15 Oxycodone/ Acetaminophen (Percocet 5/325) 1 tab PRN Q4HRS PRN PO MILD PAIN, 1ST CHOICE; Start 03/03/22 at 16:15 Oxycodone/ Acetaminophen (Percocet 5/325) 2 tab PRN Q4HRS PRN PO MODERATE PAIN, SEVERE PAIN; Start 03/03/22 at 16:15 Acetaminophen (Tylenol) 650 mg PRN Q6HRS PRN PO Headaches, Temp > 101.5F; Start 03/03/22 at 16:15 Senna/Docusate Sodium (Senna Plus) 1 tab BID PO Last administered on 03/05/22at 08:18; Start 03/03/22 at 21:00 Calcium Gluconate (Calcium Gluconate) 1,000 mg 1X ONCE IVP Last administered on 03/03/22at 16:42; Start 03/03/22 at 17:00; Stop 03/03/22 at 17:01; Status DC Sodium Bicarbonate (Sodium Bicarb Adult 8.4% Syr) 50 meq 1X ONCE IV Last administered on 03/03/22at 16:41; Start 03/03/22 at 17:00; Stop 03/03/22 at 17:01; Status DC Dextrose (Dextrose 50%-Water Syringe) 25 gm 1X ONCE IV Last administered on 03/03/22at 16:41; Start 03/03/22 at 17:00; Stop 03/03/22 at 17:01; Status DC Insulin Human Regular (HumuLIN R VIAL) 10 unit 1X ONCE IV Last administered on 03/03/22at 16:41; Start 03/03/22 at 17:00; Stop 03/03/22 at 17:01; Status DC Sodium Polystyrene Sulfonate (Kayexalate) 30 gm 1X ONCE PO Last administered on 03/03/22at 16:47; Start 03/03/22 at 17:00; Stop 03/03/22 at 17:01; Status DC Sodium Chloride 1,000 ml @ 100 mls/hr Q10H IV Last administered on 03/05/22at 08:21; Start 03/03/22 at 16:45; Stop 03/05/22 at 11:47; Status DC Iodixanol (Visipaque 320) 100 ml STK-MED ONCE .ROUTE ; Start 03/03/22 at 17:02; Stop 03/03/22 at 17:02; Status DC Lidocaine HCl (Xylocaine-Mpf 1% 2ml Vial) 2 ml STK-MED ONCE .ROUTE ; Start 03/03/22 at 17:02; Stop 03/03/22 at 17:02; Status DC Heparin Sodium/ Sodium Chloride 1,500 ml @ As Directed STK-MED ONCE .ROUTE ; Start 03/03/22 at 17:02; Stop 03/03/22 at 17:02; Status DC Fentanyl Citrate (Fentanyl 2ml Vial) 100 mcg STK-MED ONCE .ROUTE ; Start 03/03/22 at 17:03; Stop 03/03/22 at 17:03; Status DC Midazolam HCl (Versed) 2 mg STK-MED ONCE .ROUTE ; Start 03/03/22 at 17:03; Stop 03/03/22 at 17:03; Status DC Bivalirudin (Angiomax) 250 mg STK-MED ONCE IVP ; Start 03/03/22 at 17:03; Stop 03/03/22 at 17:03; Status DC Heparin Sodium (Porcine) (Heparin Sodium) 10,000 unit STK-MED ONCE .ROUTE ; Start 03/03/22 at 17:03; Stop 03/03/22 at 17:03; Status DC Verapamil HCl (Verapamil) 5 mg STK-MED ONCE .ROUTE ; Start 03/03/22 at 17:03; Stop 03/03/22 at 17:04; Status DC Nitroglycerin (Nitroglycerin) 200 mcg STK-MED ONCE .ROUTE ; Start 03/03/22 at 17:03; Stop 03/03/22 at 17:04; Status DC Nitroglycerin (Nitroglycerin) 200 mcg 1X ONCE IART Last administered on 03/03/22at 17:25; Start 03/03/22 at 18:15; Stop 03/03/22 at 18:16; Status DC Verapamil HCl (Verapamil) 2.5 mg 1X ONCE IART Last administered on 03/03/22at 17:25; Start 03/03/22 at 18:15; Stop 03/03/22 at 18:16; Status DC Heparin Sodium (Porcine) (Heparin Sodium) 2,500 unit 1X ONCE IART Last administered on 03/03/22at 17:28; Start 03/03/22 at 18:15; Stop 03/03/22 at 18:16; Status DC Heparin Sodium/ Sodium Chloride (HEPARIN for ARTERIAL LINE FLUSH) 1,000 unit 1X ONCE IART Last administered on 03/03/22at 17:45; Start 03/03/22 at 18:15; Stop 03/03/22 at 18:16; Status DC Midazolam HCl (Versed) 2 mg 1X ONCE IV Last administered on 03/03/22at 17:27; Start 03/03/22 at 18:15; Stop 03/03/22 at 18:16; Status DC Fentanyl Citrate (Fentanyl 2ml Vial) 100 mcg 1X ONCE IV Last administered on 03/03/22at 17:56; Start 03/03/22 at 18:15; Stop 03/03/22 at 18:16; Status DC Iodixanol (Visipaque 320) 100 ml 1X ONCE IART Last administered on 03/03/22at 18:15; Start 03/03/22 at 18:15; Stop 03/03/22 at 18:16; Status DC Bivalirudin (Angiomax) 250 mg 1X ONCE IVP Last administered on 03/03/22at 17:39; Start 03/03/22 at 18:15; Stop 03/03/22 at 18:16; Status DC Lidocaine HCl (Xylocaine-Mpf 1% 2ml Vial) 2 ml 1X ONCE INJ Last administered on 03/03/22at 17:13; Start 03/03/22 at 18:15; Stop 03/03/22 at 18:16; Status DC Nitroglycerin (Nitroglycerin) 200 mcg 1X ONCE ICAR Last administered on 03/03/22at 18:15; Start 03/03/22 at 18:15; Stop 03/03/22 at 18:16; Status DC Clopidogrel Bisulfate (Plavix) 600 mg 1X ONCE PO Last administered on 03/03/22at 18:15; Start 03/03/22 at 18:15; Stop 03/03/22 at 18:16; Status DC Tirofiban/Sodium Chloride 250 ml @ 0 mls/hr CONT PRN IV PER PROTOCOL Last administered on 03/03/22at 18:15; Start 03/03/22 at 18:15; Stop 03/04/22 at 12:14; Status DC Nitroglycerin (Nitroglycerin) 200 mcg STK-MED ONCE .ROUTE ; Start 03/03/22 at 18:12; Stop 03/03/22 at 18:12; Status DC Sodium Chloride 1,000 ml @ 75 mls/hr [id number] IV ; Start 03/03/22 at 18:30; Stop 03/04/22 at 16:24; Status DC Aspirin (Ecotrin) 325 mg DAILYWBKFT PO Last administered on 03/05/22at 08:18; Start 03/04/22 at 08:00 Clopidogrel Bisulfate (Plavix) 75 mg DAILYWBKFT PO Last administered on 03/05/22at 08:18; Start 03/04/22 at 08:00 Atorvastatin Calcium (Lipitor) 40 mg QHS PO Last administered on 03/04/22at 20:26; Start 03/03/22 at 21:00 Calcium Gluconate (Calcium Gluconate) 1,000 mg 1X ONCE IVP Last administered on 03/03/22at 22:40; Start 03/03/22 at 23:00; Stop 03/03/22 at 23:01; Status DC Sodium Bicarbonate (Sodium Bicarb Adult 8.4% Syr) 50 meq 1X ONCE IV Last administered on 03/03/22at 22:39; Start 03/03/22 at 23:00; Stop 03/03/22 at 23:01; Status DC Dextrose (Dextrose 50%-Water Syringe) 25 gm 1X ONCE IV Last administered on 03/03/22at 22:39; Start 03/03/22 at 23:00; Stop 03/03/22 at 23:01; Status DC Insulin Human Regular (HumuLIN R VIAL) 10 unit 1X ONCE IV Last administered on 03/03/22at 22:41; Start 03/03/22 at 23:00; Stop 03/03/22 at 23:01; Status DC Furosemide (Lasix) 20 mg 1X ONCE IVP Last administered on 03/03/22at 22:40; Start 03/03/22 at 23:00; Stop 03/03/22 at 23:01; Status DC Fluticasone Propionate (Flonase) 2 spray DAILY NS Last administered on at 08:18; Start 03/04/22 at 09:00 Metoprolol Tartrate (Lopressor) 12.5 mg BID PO Last administered on 03/05/22at 08:19; Start 03/04/22 at 21:00; Stop 03/05/22 at 10:46; Status DC Sodium Polystyrene Sulfonate (Kayexalate) 30 gm 1X ONCE PO Last administered on 03/05/22at 09:13; Start 03/05/22 at 08:45; Stop 03/05/22 at 09:04; Status DC Metolazone (Zaroxolyn) 5 mg 1X ONCE PO Last administered on 03/05/22at 09:19; Start 03/05/22 at 08:45; Stop 03/05/22 at 09:04; Status DC Metoprolol Tartrate (Lopressor) 25 mg BID PO ; Start 03/05/22 at 21:00 Metolazone (Zaroxolyn) 5 mg DAILY PO ; Start 03/05/22 at 12:00 Active Scripts Active Reported Novolog (Insulin Aspart) 100 Unit/1 Ml Cartridge 100 Unit SQ TIDAFTMEAL PRN PRN Tresiba (Insulin Degludec) 100 Unit/1 Ml Vial 100 Unit SQ DAILY Cetirizine Hcl 10 Mg Tablet 10 Mg PO DAILY Lisinopril 20 Mg Tablet 1 Tab PO DAILY Triamterene-Hctz 75-50 Mg Tab (Triamterene/Hydrochlorothiazid) 1 Each Tablet 1 Tab PO DAILY Allergies Allergies: Coded Allergies: Penicillins (Verified Allergy, Severe, 03/03/22) Physical Exam General: Alert, Oriented X3 HEENT: Atraumatic Lungs: Clear to auscultation Heart: Regular rate, Normal S1, Normal S2 Abdomen: Normal bowel sounds, Soft, No tenderness, No hepatosplenomegaly Extremities: No clubbing Neuro: Normal speech Psych/Mental Status: Mental status NL Vitals VITALS Vital Signs Date Time Temp Pulse Resp B/P (MAP) Pulse Ox O2 Delivery O2 Flow Rate FiO2 03/05/22 12:05 100 170/110 03/05/22 12:00 98.6 16 99 Room Air 98.6 Labs Labs Laboratory Tests Test 03/03/22 15:29 03/03/22 19:07 03/03/22 21:45 03/04/22 07:40 White Blood Count 10.7 x10^3/uL (4.0-11.0) Red Blood Count 4.67 x10^6/uL (4.30-5.70) Hemoglobin 12.2 g/dL (13.0-17.5) Hematocrit 37.4 % (39.0-53.0) Mean Corpuscular Volume 80 fL (79-100) Mean Corpuscular Hemoglobin 26 pg (25-35) Mean Corpuscular Hemoglobin Concent 33 g/dL (31-37) Red Cell Distribution Width 14.6 % (11.5-14.5) Platelet Count 354 x10^3/uL (140-400) Neutrophils (%) (Auto) 87 % (31-73) Lymphocytes (%) (Auto) 10 % (24-48) Monocytes (%) (Auto) 3 % (0-9) Eosinophils (%) (Auto) 0 % (0-3) Basophils (%) (Auto) 1 % (0-3) Neutrophils # (Auto) 9.3 x10^3/uL (1.8-7.7) Lymphocytes # (Auto) 1.0 x10^3/uL (1.0-4.8) Monocytes # (Auto) 0.3 x10^3/uL (0.0-1.1) Eosinophils # (Auto) 0.0 x10^3/uL (0.0-0.7) Basophils # (Auto) 0.1 x10^3/uL (0.0-0.2) Prothrombin Time 13.9 SEC (11.7-14.0) Prothromb Time International Ratio 1.1 (0.8-1.1) Activated Partial Thromboplast Time 145 SEC (24-38) Sodium Level 139 mmol/L (136-145) 142 mmol/L (136-145) Potassium Level 7.3 mmol/L (3.5-5.1) 7.2 mmol/L (3.5-5.1) 5.0 mmol/L (3.5-5.1) Chloride Level 106 mmol/L (98-107) 108 mmol/L (98-107) Carbon Dioxide Level 19 mmol/L (21-32) 22 mmol/L (21-32) Anion Gap 14 (6-14) 12 (6-14) Blood Urea Nitrogen 48 mg/dL (8-26) 42 mg/dL (8-26) Creatinine 2.3 mg/dL (0.7-1.3) 2.1 mg/dL (0.7-1.3) Estimated GFR (Cockcroft-Gault) 29.9 33.2 Glucose Level 213 mg/dL (70-99) 149 mg/dL (70-99) Calcium Level 9.8 mg/dL (8.5-10.1) 9.1 mg/dL (8.5-10.1) Troponin I High Sensitivity 1170 ng/L (4-75) Thyroid Stimulating Hormone (TSH) 1.093 uIU/mL (0.358-3.74) Glucose (Fingerstick) 152 mg/dL (70-99) Magnesium Level 1.9 mg/dL (1.8-2.4) Triglycerides Level 152 mg/dL (0-150) Cholesterol Level 316 mg/dL (0-200) LDL Cholesterol, Calculated 247 mg/dL (0-100) VLDL Cholesterol, Calculated 30 mg/dL (0-40) Non-HDL Cholesterol Calculated 277 mg/dL (0-129) HDL Cholesterol 39 mg/dL (40-60) Cholesterol/HDL Ratio 8.1 Test 03/04/22 12:07 03/04/22 17:35 03/05/22 06:40 03/05/22 11:34 Glucose (Fingerstick) 187 mg/dL (70-99) 128 mg/dL (70-99) Sodium Level 138 mmol/L (136-145) Potassium Level 6.4 mmol/L (3.5-5.1) Chloride Level 108 mmol/L (98-107) Carbon Dioxide Level 20 mmol/L (21-32) Anion Gap 10 (6-14) Blood Urea Nitrogen 49 mg/dL (8-26) Creatinine 2.6 mg/dL (0.7-1.3) Estimated GFR (Cockcroft-Gault) 25.9 BUN/Creatinine Ratio 19 (6-20) Glucose Level 174 mg/dL (70-99) Calcium Level 8.3 mg/dL (8.5-10.1) Total Bilirubin 0.2 mg/dL (0.2-1.0) Aspartate Amino Transf (AST/SGOT) 399 U/L (15-37) Alanine Aminotransferase (ALT/SGPT) 163 U/L (16-63) Alkaline Phosphatase 113 U/L (46-116) Total Protein 6.3 g/dL (6.4-8.2) Albumin 2.4 g/dL (3.4-5.0) Albumin/Globulin Ratio 0.6 (1.0-1.7) Prothrombin Time 13.3 SEC (11.7-14.0) Prothromb Time International Ratio 1.0 (0.8-1.1) Test 03/05/22 12:02 Glucose (Fingerstick) 152 mg/dL (70-99) Laboratory Tests Test 03/04/22 17:35 03/05/22 06:40 03/05/22 11:34 03/05/22 12:02 Glucose (Fingerstick) 128 mg/dL (70-99) 152 mg/dL (70-99) Sodium Level 138 mmol/L (136-145) Potassium Level 6.4 mmol/L (3.5-5.1) Chloride Level 108 mmol/L (98-107) Carbon Dioxide Level 20 mmol/L (21-32) Anion Gap 10 (6-14) Blood Urea Nitrogen 49 mg/dL (8-26) Creatinine 2.6 mg/dL (0.7-1.3) Estimated GFR (Cockcroft-Gault) 25.9 BUN/Creatinine Ratio 19 (6-20) Glucose Level 174 mg/dL (70-99) Calcium Level 8.3 mg/dL (8.5-10.1) Total Bilirubin 0.2 mg/dL (0.2-1.0) Aspartate Amino Transf (AST/SGOT) 399 U/L (15-37) Alanine Aminotransferase (ALT/SGPT) 163 U/L (16-63) Alkaline Phosphatase 113 U/L (46-116) Total Protein 6.3 g/dL (6.4-8.2) Albumin 2.4 g/dL (3.4-5.0) Albumin/Globulin Ratio 0.6 (1.0-1.7) Prothrombin Time 13.3 SEC (11.7-14.0) Prothromb Time International Ratio 1.0 (0.8-1.1) Assessment/Plan Assessment/Plan Abnormal transaminases- noted today, not checked on admission at time of acute WA. Associated with high troponin levels. No history of excess alcohol intake, no prior history of abnormal LFTS - as far as he knows, although he was told 15-20 years ago he had "fatty liver". All these issues suggest the transaminases are likely principally cardiac in origin, but a minor component from liver can not be excluded Plan- US liver tomorrow recheck LFTS check Hep C but will hold on other w/u for abnormal LFTS at this time SHELBY MARKS MD March 05, 2022 15:08
[2022-03-05 17:45] VITALS: BP 182/116
[2022-03-05 20:00] VITALS: BP 160/100
[2022-03-05] MEDS ORDERED: METOPROLOL TART IMMED RELEASE 25 MG TABLET. PO SCH (21:00)
[2022-03-05] MEDS: ATORVASTATIN CALCIUM 40 MG TABLET. PO SCH (21:07)
[2022-03-05] MEDS: ONDANSETRON PF 4 MG/2 ML VIAL. IVP PRN (21:09)
[2022-03-06] VITALS (9 sets, daily range): BP systolic 134–178; BP diastolic 87–109
[2022-03-06] MEDS: hydrALAZINE 20 MG/ML VIAL. IVP PRN (04:23)
[2022-03-06] MEDS: INSULIN LISPRO 300 UNITS/3 ML VIAL. SQ SCH ×3 (08:00→17:00)
[2022-03-06] MEDS: SENNOSIDES/DOCUSATE 8.6/50MG TABLET. PO SCH ×2 (08:11→21:04)
[2022-03-06] MEDS: FLUTICASONE 50MCG/NASAL SPRAY 16GM BOTTLE. NS SCH (08:12)
[2022-03-06] MEDS: CETIRIZINE HCL 10 MG TABLET. PO SCH (08:12)
[2022-03-06] MEDS: ASPIRIN ENTERIC COATED 325 MG TABLET.DR. PO SCH (08:12)
[2022-03-06] MEDS: CLOPIDOGREL BISULFATE 75 MG TABLET PO SCH (08:13)
[2022-03-06] MEDS: metOLazone 2.5 MG TABLET PO SCH (08:13)
[2022-03-06] MEDS: METOPROLOL TART IMMED RELEASE 50 MG TABLET. PO SCH ×2 (08:13→21:04)
--- NOTE | 2022-03-06 08:19 | RAD ---
US ABDOMEN LIMITED History: Reason: anormal LFTS- / Spl. Instructions: / History: Comparison: None. Technique: Transabdominal ultrasound images are obtained of the right upper quadrant. Findings: Liver is normal in echogenicity. Right hepatic lobe measures 19.7 cm. Portal flow is hepatopedal. Gallbladder wall thickening measures 8 mm. Minimal pericholecystic fluid. No cholelithiasis. Common bile duct measures 5 mm in diameter. Visualized pancreas not well seen due to overlying structures. The right kidney measures 11.6 x 5.8 x 5.4 cm. No hydronephrosis. Small right renal cyst measures 1.3 cm. Aorta and IVC not well seen due to overlying structures. IMPRESSION: 1. Mild gallbladder wall thickening with pericholecystic fluid, may indicate cholecystitis. JANICEA homer severino can further evaluate if persistent clinical concern. 2. Hepatomegaly. Electronically signed by: Alexander Little DO (03/06/2022 8:17 AM) [id number]
[2022-03-06 08:34] LABS: ALBUMIN 2.5 g/dL (3.4-5.0); ALBUMIN/GLOBULIN RATIO 0.6 (1.0-1.7); CALCIUM 8.5 mg/dL (8.5-10.1); CREATININE 2.6 mg/dL (0.7-1.3); DIRECT BILIRUBIN 0.1 mg/dL (0.0-0.2); GFR 25.9; POTASSIUM 4.8 mmol/L (3.5-5.1); TOTAL BILIRUBIN 0.4 mg/dL (0.2-1.0); TOTAL PROTEIN 6.4 g/dL (6.4-8.2)
--- NOTE | 2022-03-06 09:21 | PDOC ---
DATE OF SERVICE DATE: 03/06/22 TIME: 09:11 SUBJECTIVE ROS Eating Lunch . No acute events overnight. OBJECTIVE Vital Signs Vital Signs Date Time Temp Pulse Resp B/P (MAP) Pulse Ox O2 Delivery O2 Flow Rate FiO2 03/06/22 08:13 99 152/97 03/06/22 08:00 98.3 16 97 Room Air 98.3 I & 0 Intake and Output 03/06/22 07:00 Intake Total 1064 ml Output Total 801 ml Balance 263 ml Intake Oral 640 ml IV Total 424 ml Output Urine Total 800 ml Urine/Stool Mix 1 ml # Voids 5 # Bowel Movements 4 PHYSICAL EXAM Physical Exam General: Alert, Oriented X3 HEENT: Atraumatic Lungs: Clear to auscultation Heart: Regular rate, Normal S1, Normal S2 Abdomen: Normal bowel sounds, Soft, No tenderness, No hepatosplenomegaly Extremities: No clubbing Neuro: Normal speech Psych/Mental Status: Mental status NL No Rodriguez DIAGNOSIS/ASSESSMENT Assessment & Plan WINNIE- No previous labs available to me, per Card note baseline Cr 1.5 in the past Creat 2.1-->2.6- ? Plateau, cardiorenal - [facility]/ RAKESH .Non Oliguric,Patient denies any Past History of Abnormal renal function, follows with PCP Reports using large amounts of Protein supplements for past several years . Was also on Lisinopril, Triam/HCTZ and for past 1 week prior to hospitalization have been taking 4-8 Tabs of Ibuprofen/day Supportive care, Maintain fluid balance Avoid Nephrotoxins ? CKD per chart notes, patient denies . Suspect 2/2 Lng standing Hx of HTN (since he was in his 20's) Use of NSAID's - recently for 1 week for swelling Rt elbow Hyperkalemia- Resolved . Was on PAULETTE-, Triam and Protein supplements with K Acute [facility] status S/P cath with stent placement to the circumflex- on 03/03/2022. HTN urgency DM2: insulin dependent Transaminaitis COMMENT/RELEVANT DATA Meds Current Medications Medications (Trade) Dose Ordered Sig/[place] Start Time Stop Time Status Last Admin Dose Admin Acetaminophen (Tylenol) 650 mg PRN Q6HRS PRN 03/03/22 16:15 Aspirin (Ecotrin) 325 mg DAILYWBKFT 03/04/22 08:00 03/06/22 08:12 325 MG Atorvastatin Calcium (Lipitor) 40 mg QHS 03/03/22 21:00 03/05/22 21:07 40 MG Bivalirudin (Angiomax) 250 mg 1X ONCE 03/03/22 18:15 03/03/22 18:16 DC 03/03/22 17:39 250 MG Calcium Carbonate/ Glycine (Tums) 500 mg PRN Q3HRS PRN 03/03/22 16:15 Calcium Gluconate (Calcium Gluconate) 1,000 mg 1X ONCE 03/03/22 23:00 03/03/22 23:01 DC 03/03/22 22:40 1,000 MG Cetirizine HCl (ZyrTEC) 10 mg DAILY 03/04/22 09:00 03/06/22 08:12 10 MG Clopidogrel Bisulfate (Plavix) 75 mg DAILYWBKFT 03/04/22 08:00 03/06/22 08:13 75 MG Dextrose (Dextrose 50%-Water Syringe) 25 gm 1X ONCE 03/03/22 23:00 03/03/22 23:01 DC 03/03/22 22:39 25 GM Fentanyl Citrate (Fentanyl 2ml Vial) 100 mcg 1X ONCE 03/03/22 18:15 03/03/22 18:16 DC 03/03/22 17:56 100 MCG Fluticasone Propionate (Flonase) 2 spray DAILY 03/04/22 09:00 03/06/22 08:12 2 SPRAY Furosemide (Lasix) 20 mg 1X ONCE 03/03/22 23:00 03/03/22 23:01 DC 03/03/22 22:40 20 MG Heparin Sodium (Porcine) (Heparin Sodium) 2,500 unit 1X ONCE 03/03/22 18:15 03/03/22 18:16 DC 03/03/22 17:28 2,500 UNIT Heparin Sodium/ Dextrose 250 ml @ 10 mls/hr CONT PRN 03/03/22 15:15 03/03/22 18:25 DC Heparin Sodium/ Sodium Chloride (HEPARIN for ARTERIAL LINE FLUSH) 1,000 unit 1X ONCE 03/03/22 18:15 03/03/22 18:16 DC 03/03/22 17:45 1,000 UNIT Hydralazine HCl (Apresoline Inj) 10 mg PRN Q4HRS PRN 03/03/22 15:00 03/06/22 04:23 10 MG Info (Non-Icu Electrolyte Protocol) 1 ea PRN DAILY PRN 03/03/22 16:15 Insulin Human Lispro (HumaLOG) 0-7 UNITS TIDWMEALS 03/03/22 17:00 03/05/22 12:05 3 UNITS Insulin Human Regular (HumuLIN R VIAL) 10 unit 1X ONCE 03/03/22 23:00 03/03/22 23:01 DC 03/03/22 22:41 10 UNIT Iodixanol (Visipaque 320) 100 ml 1X ONCE 03/03/22 18:15 03/03/22 18:16 DC 03/03/22 18:15 133 ML Lidocaine HCl (Xylocaine-Mpf 1% 2ml Vial) 2 ml 1X ONCE 03/03/22 18:15 03/03/22 18:16 DC 03/03/22 17:13 2 ML Lisinopril (Prinivil) 20 mg DAILY 03/04/22 09:00 03/03/22 16:56 DC Lorazepam (Ativan Inj) 2 mg 1X ONCE 03/03/22 15:00 03/03/22 15:01 DC 03/03/22 15:05 2 MG Metolazone (Zaroxolyn) 5 mg DAILY 03/05/22 12:00 03/06/22 08:13 5 MG Metoprolol Tartrate (Lopressor) 50 mg BID 03/06/22 08:00 03/06/22 08:13 50 MG Midazolam HCl (Versed) 2 mg 1X ONCE 03/03/22 18:15 03/03/22 18:16 DC 03/03/22 17:27 2 MG Morphine Sulfate (Morphine Sulfate) 2 mg PRN Q2HR PRN 03/03/22 15:00 03/03/22 15:34 2 MG Nitroglycerin (Nitroglycerin) 200 mcg STK-MED ONCE 03/03/22 18:12 03/03/22 18:12 DC Nitroglycerin (Nitrostat) 0.4 mg PRN Q5MIN PRN 03/03/22 15:00 Ondansetron HCl (Zofran) 4 mg PRN Q6HRS PRN 03/03/22 16:15 03/05/22 21:09 4 MG Oxycodone/ Acetaminophen (Percocet 5/325) 2 tab PRN Q4HRS PRN 5/20/22 16:15 Senna/Docusate Sodium (Senna Plus) 1 tab BID 03/03/22 21:00 03/05/22 08:18 1 TAB Sodium Polystyrene Sulfonate (Kayexalate) 30 gm 1X ONCE 03/05/22 08:45 03/05/22 09:04 DC 03/05/22 09:13 30 GM Sodium Bicarbonate (Sodium Bicarb Adult 8.4% Syr) 50 meq 1X ONCE 03/03/22 23:00 03/03/22 23:01 DC 03/03/22 22:39 50 MEQ Sodium Chloride 1,000 ml @ 75 mls/hr [id number] 03/03/22 18:30 03/04/22 16:24 DC Tirofiban/Sodium Chloride 250 ml @ 0 mls/hr CONT PRN 03/03/22 18:15 03/04/22 12:14 DC 03/03/22 18:15 8.8 MLS/HR Triamterene/HCTZ (Maxzide 37.5/ 25mg) 2 tab DAILY 03/04/22 09:00 03/03/22 16:56 DC Verapamil HCl (Verapamil) 2.5 mg 1X ONCE 03/03/22 18:15 03/03/22 18:16 DC 03/03/22 17:25 2.5 MG Zolpidem Tartrate (Ambien) 5 mg PRN QHS PRN 03/03/22 16:15 Lab Laboratory Tests Test 03/05/22 11:34 03/05/22 12:02 03/06/22 07:45 03/06/22 08:20 Prothrombin Time 13.3 SEC (11.7-14.0) Prothromb Time International Ratio 1.0 (0.8-1.1) Glucose (Fingerstick) 152 mg/dL (70-99) 141 mg/dL (70-99) Sodium Level 137 mmol/L (136-145) Potassium Level 4.8 mmol/L (3.5-5.1) Chloride Level 104 mmol/L (98-107) Carbon Dioxide Level 21 mmol/L (21-32) Anion Gap 12 (6-14) Blood Urea Nitrogen 53 mg/dL (8-26) Creatinine 2.6 mg/dL (0.7-1.3) Estimated GFR (Cockcroft-Gault) 25.9 BUN/Creatinine Ratio 20 (6-20) Glucose Level 148 mg/dL (70-99) Calcium Level 8.5 mg/dL (8.5-10.1) Total Bilirubin 0.4 mg/dL (0.2-1.0) Direct Bilirubin 0.1 mg/dL (0.0-0.2) Aspartate Amino Transf (AST/SGOT) 385 U/L (15-37) Alanine Aminotransferase (ALT/SGPT) 368 U/L (16-63) Alkaline Phosphatase 180 U/L (46-116) Total Protein 6.4 g/dL (6.4-8.2) Albumin 2.5 g/dL (3.4-5.0) Albumin/Globulin Ratio 0.6 (1.0-1.7) Results All relevant outside records, renal labs, imaging studies, telemetry/EKG's were reviewed. Justicifation of Admission Dx: Justifications for Admission: Justification of Admission Dx: N/A KERWIN STANLEY MD March 06, 2022 09:20
--- NOTE | 2022-03-06 11:45 | PDOC ---
ANNE ASHTON MOBILE APPLICATION ARCHITECT 03/06/22 1145: CARDIO Progress Notes Date and Time Date of Service 03/06/22 Time of Evaluation 1140 Subjective Subjective: No Chest Pain, No shortness of breath, No Palpitations, No Dizziness Vitals Vitals Vital Signs Date Time Temp Pulse Resp B/P (MAP) Pulse Ox O2 Delivery O2 Flow Rate FiO2 03/06/22 08:13 99 152/97 03/06/22 08:00 98.3 16 97 Room Air 98.3 Weight Weight [ ] Input and Output Intake and Output Intake and Output 03/06/22 07:00 Intake Total 1064 ml Output Total 801 ml Balance 263 ml Intake Oral 640 ml IV Total 424 ml Output Urine Total 800 ml Urine/Stool Mix 1 ml # Voids 5 # Bowel Movements 4 Laboratory Labs Laboratory Tests Test 03/05/22 12:02 03/06/22 07:45 03/06/22 08:20 Glucose (Fingerstick) 152 mg/dL (70-99) 141 mg/dL (70-99) Sodium Level 137 mmol/L (136-145) Potassium Level 4.8 mmol/L (3.5-5.1) Chloride Level 104 mmol/L (98-107) Carbon Dioxide Level 21 mmol/L (21-32) Anion Gap 12 (6-14) Blood Urea Nitrogen 53 mg/dL (8-26) Creatinine 2.6 mg/dL (0.7-1.3) Estimated GFR (Cockcroft-Gault) 25.9 BUN/Creatinine Ratio 20 (6-20) Glucose Level 148 mg/dL (70-99) Calcium Level 8.5 mg/dL (8.5-10.1) Total Bilirubin 0.4 mg/dL (0.2-1.0) Direct Bilirubin 0.1 mg/dL (0.0-0.2) Aspartate Amino Transf (AST/SGOT) 385 U/L (15-37) Alanine Aminotransferase (ALT/SGPT) 368 U/L (16-63) Alkaline Phosphatase 180 U/L (46-116) Total Protein 6.4 g/dL (6.4-8.2) Albumin 2.5 g/dL (3.4-5.0) Albumin/Globulin Ratio 0.6 (1.0-1.7) Hepatitis C IgG Antibody Nonreactive (Nonreactive) Physical Exam HEENT: Neck Supple W Full Motion Chest: Symmetric LUNGS: Clear to Auscultation Heart: RRR Abdomen: Soft N/T Extremities: No Edema Neurology: alert, oriented, follow commands Assessment Assessment 1. Acute non-STEMI: Cardiac catheterization showed 100% occluded large caliber leLCx. He underwent successful PCI/FAISAL placement. Telemetry showed few brief episodes of NSVT- none further. Continue secondary prevention including dual antiplatelet therapy. Cardiac rehab referral 2. Acute combined systolic and diastolic heart failure: 2D echo showed LVEF 45% with basal to mid inferior, posterior and lateral wall hypokinesis. He is clinically well compensated. 3. Accelerated hypertension: Blood pressure better controlled 4. Acute on chronic renal insufficiency, hyperkalemia: Nephrology following. avoid nephrotoxins 5. Hyperlipidemia: LDL significantly elevated at 247. Patient has history of fatty liver and LFTs are slightly elevated. Continue statin therapy for now and repeat LFTs in 1 to 2 days. If they continue to increase, we will consider PCSK9 inhibitors, although these might be expensive due to his lack of insur ance. 6. DM2: Treat per IM Justicifation of Admission Dx: Justifications for Admission: Justification of Admission Dx: Yes HI: Acute NSTEMI JESSENIA CLARK MD 03/06/22 1814: CARDIO Progress Notes Assessment Assessment Patient seen and examined. Agree with WINDING MACHINE OPERATOR's assessment and plan. Tele did not show any significant arrhythmias s/p PCI/FAISAL to LCX, CP free - continue DAPT LFT's increasing - stop statins, start zetia - consider PCSK9 as outpatient DC home when OK from nephrology standpoint ANNE ASHTON APRN March 06, 2022 11:45 JESSENIA CLARK MD March 06, 2022 18:14
--- NOTE | 2022-03-06 12:39 | PDOC ---
Date of Service: DATE: 03/06/22 TIME: 12:34 Subjective: Subjective: Some nausea - attributes to medications. No abd pain. Tolerating diet. Some alcohol history/heavy drinking years ago, was told fatty liver but does not recall abnormal labs in past - very rarely drinks now (5 drinks in 7 years). Stooled a lot after Kayexalate. Objective: Vital Signs: Vital Signs Date Time Temp Pulse Resp B/P (MAP) Pulse Ox O2 Delivery O2 Flow Rate FiO2 03/06/22 08:13 99 152/97 03/06/22 08:00 98.3 16 97 Room Air 98.3 Labs: Laboratory Tests Test 03/06/22 08:20 Glucose (Fingerstick) 141 mg/dL (70-99) Imaging: Abd US Findings: Liver is normal in echogenicity. Right hepatic lobe measures 19.7 cm. Portal flow is hepatopedal. Gallbladder wall thickening measures 8 mm. Minimal pericholecystic fluid. No cholelithiasis. Common bile duct measures 5 mm in diameter. Visualized pancreas not well seen due to overlying structures. The right kidney measures 11.6 x 5.8 x 5.4 cm. No hydronephrosis. Small right renal cyst measures 1.3 cm. Aorta and IVC not well seen due to overlying structures. IMPRESSION: 1. Mild gallbladder wall thickening with pericholecystic fluid, may indicate cholecystitis. HIDA scan can further evaluate if persistent clinical concern. 2. Hepatomegaly. Echo <Conclusion> Base to mid Inferior, posterior and lateral wall hypokinesis. The ejection fraction is estimated at 45%. There is no evidence of significant pericardial effusion. Cardiac Cath Conclusion 1. Severe single-vessel coronary artery disease, 100% occlusion of a large caliber left circumflex artery 2. Successful PCI/drug-eluting stent placement to the left circumflex artery 3. Acute diastolic heart failure as evidenced by elevated LVEDP Recommendations 1. Aspirin 325 mg daily for 1 month followed by 81 mg daily 2. Plavix 75 mg daily 3. Aggrastat infusion for 18 hours 4. Cardiovascular risk factor modification 5. Cardiac rehabilitation referral upon discharge PE: GEN: NAD LUNGS: CTAB HEART: RRR ABD: NABS, S/ND/NT NEURO/PSYCH: A & O 3 A/P: SD, CAD s/p stent, WINNIE Elevated LFTs - bit worse today, Hep C negative, hepatomegaly on US Nausea -- Follow labs for now, will d/w Dr. Peña. Justicifation of Admission Dx: Justifications for Admission: Justification of Admission Dx: Yes RORY BURTON March 06, 2022 12:39
--- NOTE | 2022-03-06 13:04 | PDOC ---
[facility] PROGRESS NOTE Date of Service DOS: DATE: 03/06/22 TIME: 13:00 Chief Complaint Chief Complaint Acute OR status post cardiac cath with stent to the circumflex Probable noncompliance with going to the doctor per his significant other Jeimy Probable longstanding hypertension contributing to chronic renal insufficiency Baseline creatinine 2.1 WINNIE/CKD Hyperkalemia Transaminaitis Diabetes Headache Right elbow olecranon bursitis? History of Present Illness History of Present Illness 03/06/2022 No acute events overnight. Patient seen examined bedside. Blood pressure still elevated in the high 170s. Metoprolol increased to 50 mg twice daily. Patient started on metoprolol this morning. Creatinine currently at 2.6 and plateaued. Potassium improved that currently at 4.8. We will repeat potassium tomorrow morning after started on metolazone. Discussed with cardiology. Counseled extensively on diabetic diet and decreasing protein intake and balancing diet with fibers. Counseled against additional protein supplements. 03/05/2022 Patient seen and examined Discussed with his significant other and I reviewed the chart with her per his request Discussed with Dr. You Discussed with RN Chart reviewed His potassium was up to 6.4 today we are giving Kayexalate Nephrology also started Zaroxolyn 03/04/2022 Patient seen and examined in the ICU He is currently on Aggrastat drip Tolerated his cardiac cath with stent to the circumflex yesterday Discussed with RN Chart reviewed Vitals/I&O Vitals/I&O: Vital Signs Date Time Temp Pulse Resp B/P (MAP) Pulse Ox O2 Delivery O2 Flow Rate FiO2 03/06/22 12:00 98.2 84 16 134/99 (111) 98 Room Air 98.2 I & O 03/05/22 03/05/22 03/06/22 15:00 23:00 07:00 Intake Total 864 ml 200 ml Output Total 200 ml 1 ml 600 ml Balance 664 ml 199 ml -600 ml Physical Exam General: Alert, Oriented X3 Heart: Regular rate, Normal S1, Normal S2 Abdomen: Normal bowel sounds, Soft, No tenderness, No hepatosplenomegaly Extremities: No clubbing Skin: No breakdown, No significant lesion Labs Labs: Laboratory Tests Test 03/06/22 07:45 03/06/22 08:20 03/06/22 12:38 Sodium Level 137 mmol/L (136-145) Potassium Level 4.8 mmol/L (3.5-5.1) Chloride Level 104 mmol/L (98-107) Carbon Dioxide Level 21 mmol/L (21-32) Anion Gap 12 (6-14) Blood Urea Nitrogen 53 mg/dL (8-26) Creatinine 2.6 mg/dL (0.7-1.3) Estimated GFR (Cockcroft-Gault) 25.9 BUN/Creatinine Ratio 20 (6-20) Glucose Level 148 mg/dL (70-99) Calcium Level 8.5 mg/dL (8.5-10.1) Total Bilirubin 0.4 mg/dL (0.2-1.0) Direct Bilirubin 0.1 mg/dL (0.0-0.2) Aspartate Amino Transf (AST/SGOT) 385 U/L (15-37) Alanine Aminotransferase (ALT/SGPT) 368 U/L (16-63) Alkaline Phosphatase 180 U/L (46-116) Total Protein 6.4 g/dL (6.4-8.2) Albumin 2.5 g/dL (3.4-5.0) Albumin/Globulin Ratio 0.6 (1.0-1.7) Hepatitis C IgG Antibody Nonreactive (Nonreactive) Glucose (Fingerstick) 141 mg/dL (70-99) 154 mg/dL (70-99) Comment Review of Relevant I have reviewed the following items eliud (where applicable) has been applied. Medications: Current Medications Medications (Trade) Dose Ordered Sig/[place] Route PRN Reason Start Time Stop Time Status Last Admin Dose Admin Metoprolol Tartrate (Lopressor) 25 mg BID PO 03/05/22 21:00 03/06/22 07:54 DC 03/05/22 21:08 Metoprolol Tartrate (Lopressor) 50 mg BID PO 03/06/22 08:00 03/06/22 08:13 Justifications for Admission Other Justification MARLON HOFF MD March 06, 2022 13:04
--- NOTE | 2022-03-06 16:06 | PDOC2 ---
CONSULT Date of Consult Date of Consult DATE: 03/06/22 TIME: 16:04 Past Medical History Cardiovascular: HTN Hepatobiliary: Other (fatty liver by history) Musculoskeletal: Other (tricep tear) Renal/: Chronic renal insuff (?) Endocrine: Diabetes Past Surgical History Past Surgical History: Other (teeth extraction) Social History No ALCOHOL: none Drugs: None Lives: with Family Current Medications Current Medications Current Medications Lorazepam (Ativan Inj) 2 mg 1X ONCE IVP Last administered on 03/03/22at 15:05; Start 03/03/22 at 15:00; Stop 03/03/22 at 15:01; Status DC Hydralazine HCl (Apresoline Inj) 10 mg PRN Q4HRS PRN IVP ELEVATED BP, SEE COMMENTS Last administered on 03/06/22at 04:23; Start 03/03/22 at 15:00 Morphine Sulfate (Morphine Sulfate) 2 mg PRN Q2HR PRN IVP MODERATE TO SEVERE PAIN Last administered on 03/03/22at 15:34; Start 03/03/22 at 15:00 Nitroglycerin (Nitrostat) 0.4 mg PRN Q5MIN PRN SL CHEST PAIN; Start 03/03/22 at 15:00 Aspirin (Ecotrin) 81 mg DAILYWBKFT PO ; Start 03/04/22 at 08:00; Stop 03/03/22 at 18:26; Status DC Heparin Sodium/ Dextrose 250 ml @ 10 mls/hr CONT PRN IV PER PROTOCOL; Start 03/03/22 at 15:15; Stop 03/03/22 at 18:25; Status DC Heparin Sodium (Porcine) (Heparin Sodium) 2,450 unit PRN Q6HRS PRN IV FOR UFH LEVEL LESS THAN 0.2; Start 03/03/22 at 15:15; Stop 03/03/22 at 18:25; Status DC Cetirizine HCl (ZyrTEC) 10 mg DAILY PO Last administered on 03/06/22at 08:12; Start 03/04/22 at 09:00 Lisinopril (Prinivil) 20 mg DAILY PO ; Start 03/04/22 at 09:00; Stop 03/03/22 at 16:56; Status DC Triamterene/HCTZ (Maxzide 37.5/ 25mg) 2 tab DAILY PO ; Start 03/04/22 at 09:00; Stop 03/03/22 at 16:56; Status DC Insulin Human Lispro (HumaLOG) 0-7 UNITS TIDWMEALS SQ Last administered on 03/06/22at 12:40; Start 03/03/22 at 17:00 Dextrose (Dextrose 50%-Water Syringe) 12.5 gm PRN Q15MIN PRN IV SEE COMMENTS; Start 03/03/22 at 16:00 Ondansetron HCl (Zofran) 4 mg PRN Q6HRS PRN IVP NAUSEA/VOMITING Last admi nistered on 03/05/22at 21:09; Start 03/03/22 at 16:15 Calcium Carbonate/ Glycine (Tums) 500 mg PRN Q3HRS PRN PO UPSET STOMACH; Start 03/03/22 at 16:15 Zolpidem Tartrate (Ambien) 5 mg PRN QHS PRN PO INSOMNIA, MAY REPEAT IN 1HR; Start 03/03/22 at 16:15 Info (Non-Icu Electrolyte Protocol) 1 ea PRN DAILY PRN MC SEE COMMENTS; Start 03/03/22 at 16:15 Oxycodone/ Acetaminophen (Percocet 5/325) 1 tab PRN Q4HRS PRN PO MILD PAIN, 1ST CHOICE; Start 03/03/22 at 16:15 Oxycodone/ Acetaminophen (Percocet 5/325) 2 tab PRN Q4HRS PRN PO MODERATE PAIN, SEVERE PAIN; Start 03/03/22 at 16:15 Acetaminophen (Tylenol) 650 mg PRN Q6HRS PRN PO Headaches, Temp > 101.5F; Start 03/03/22 at 16:15 Senna/Docusate Sodium (Senna Plus) 1 tab BID PO Last administered on 03/05/22at 08:18; Start 03/03/22 at 21:00 Calcium Gluconate (Calcium Gluconate) 1,000 mg 1X ONCE IVP Last administered on 03/03/22at 16:42; Start 03/03/22 at 17:00; Stop 03/03/22 at 17:01; Status DC Sodium Bicarbonate (Sodium Bicarb Adult 8.4% Syr) 50 meq 1X ONCE IV Last administered on 03/03/22at 16:41; Start 03/03/22 at 17:00; Stop 03/03/22 at 17:01; Status DC Dextrose (Dextrose 50%-Water Syringe) 25 gm 1X ONCE IV Last administered on 03/03/22at 16:41; Start 03/03/22 at 17:00; Stop 03/03/22 at 17:01; Status DC Insulin Human Regular (HumuLIN R VIAL) 10 unit 1X ONCE IV Last administered on 03/03/22at 16:41; Start 03/03/22 at 17:00; Stop 03/03/22 at 17:01; Status DC Sodium Polystyrene Sulfonate (Kayexalate) 30 gm 1X ONCE PO Last administered on 03/03/22at 16:47; Start 03/03/22 at 17:00; Stop 03/03/22 at 17:01; Status DC Sodium Chloride 1,000 ml @ 100 mls/hr Q10H IV Last administered on 03/05/22at 08:21; Start 03/03/22 at 16:45; Stop 03/05/22 at 11:47; Status DC Iodixanol (Visipaque 320) 100 ml STK-MED ONCE .ROUTE ; Start 03/03/22 at 17:02; Stop 03/03/22 at 17:02; Status DC Lidocaine HCl (Xylocaine-Mpf 1% 2ml Vial) 2 ml STK-MED ONCE .ROUTE ; Start 03/03/22 at 17:02; Stop 03/03/22 at 17:02; Status DC Heparin Sodium/ Sodium Chloride 1,500 ml @ As Directed STK-MED ONCE .ROUTE ; Start 03/03/22 at 17:02; Stop 03/03/22 at 17:02; Status DC Fentanyl Citrate (Fentanyl 2ml Vial) 100 mcg STK-MED ONCE .ROUTE ; Start 03/03/22 at 17:03; Stop 03/03/22 at 17:03; Status DC Midazolam HCl (Versed) 2 mg STK-MED ONCE .ROUTE ; Start 03/03/22 at 17:03; Stop 03/03/22 at 17:03; Status DC Bivalirudin (Angiomax) 250 mg STK-MED ONCE IVP ; Start 03/03/22 at 17:03; Stop 03/03/22 at 17:03; Status DC Heparin Sodium (Porcine) (Heparin Sodium) 10,000 unit STK-MED ONCE .ROUTE ; Start 03/03/22 at 17:03; Stop 03/03/22 at 17:03; Status DC Verapamil HCl (Verapamil) 5 mg STK-MED ONCE .ROUTE ; Start 03/03/22 at 17:03; Stop 03/03/22 at 17:04; Status DC Nitroglycerin (Nitroglycerin) 200 mcg STK-MED ONCE .ROUTE ; Start 03/03/22 at 17:03; Stop 03/03/22 at 17:04; Status DC Nitroglycerin (Nitroglycerin) 200 mcg 1X ONCE IART Last administered on 03/03/22at 17:25; Start 03/03/22 at 18:15; Stop 03/03/22 at 18:16; Status DC Verapamil HCl (Verapamil) 2.5 mg 1X ONCE IART Last administered on 03/03/22at 17:25; Start 03/03/22 at 18:15; Stop 03/03/22 at 18:16; Status DC Heparin Sodium (Porcine) (Heparin Sodium) 2,500 unit 1X ONCE IART Last administered on 03/03/22at 17:28; Start 03/03/22 at 18:15; Stop 03/03/22 at 18:16; Status DC Heparin Sodium/ Sodium Chloride (HEPARIN for ARTERIAL LINE FLUSH) 1,000 unit 1X ONCE IART Last administered on 03/03/22at 17:45; Start 03/03/22 at 18:15; Stop 03/03/22 at 18:16; Status DC Midazolam HCl (Versed) 2 mg 1X ONCE IV Last administered on 03/03/22at 17:27; Start 03/03/22 at 18:15; Stop 03/03/22 at 18:16; Status DC Fentanyl Citrate (Fentanyl 2ml Vial) 100 mcg 1X ONCE IV Last administered on 03/03/22at 17:56; Start 03/03/22 at 18:15; Stop 03/03/22 at 18:16; Status DC Iodixanol (Visipaque 320) 100 ml 1X ONCE IART Last administered on 03/03/22at 18:15; Start 03/03/22 at 18:15; Stop 03/03/22 at 18:16; Status DC Bivalirudin (Angiomax) 250 mg 1X ONCE IVP Last administered on 03/03/22at 17:39; Start 03/03/22 at 18:15; Stop 03/03/22 at 18:16; Status DC Lidocaine HCl (Xylocaine-Mpf 1% 2ml Vial) 2 ml 1X ONCE INJ Last administered on 03/03/22at 17:13; Start 03/03/22 at 18:15; Stop 03/03/22 at 18:16; Status DC Nitroglycerin (Nitroglycerin) 200 mcg 1X ONCE ICAR Last administered on 03/03/22at 18:15; Start 03/03/22 at 18:15; Stop 03/03/22 at 18:16; Status DC Clopidogrel Bisulfate (Plavix) 600 mg 1X ONCE PO Last administered on 03/03/22at 18:15; Start 03/03/22 at 18:15; Stop 03/03/22 at 18:16; Status DC Tirofiban/Sodium Chloride 250 ml @ 0 mls/hr CONT PRN IV PER PROTOCOL Last administered on 03/03/22at 18:15; Start 03/03/22 at 18:15; Stop 03/04/22 at 12:14; Status DC Nitroglycerin (Nitroglycerin) 200 mcg STK-MED ONCE .ROUTE ; Start 03/03/22 at 18:12; Stop 03/03/22 at 18:12; Status DC Sodium Chloride 1,000 ml @ 75 mls/hr [id number] IV ; Start 03/03/22 at 18:30; Stop 03/04/22 at 16:24; Status DC Aspirin (Ecotrin) 325 mg DAILYWBKFT PO Last administered on 03/06/22at 08:12; Start 03/04/22 at 08:00 Clopidogrel Bisulfate (Plavix) 75 mg DAILYWBKFT PO Last administered on 03/06/22at 08:13; Start 03/04/22 at 08:00 Atorvastatin Calcium (Lipitor) 40 mg QHS PO Last administered on 03/05/22at 21:07; Start 03/03/22 at 21:00 Calcium Gluconate (Calcium Gluconate) 1,000 mg 1X ONCE IVP Last administered on 03/03/22at 22:40; Start 03/03/22 at 23:00; Stop 03/03/22 at 23:01; Status DC Sodium Bicarbonate (Sodium Bicarb Adult 8.4% Syr) 50 meq 1X ONCE IV Last administered on 03/03/22at 22:39; Start 03/03/22 at 23:00; Stop 03/03/22 at 23:01; Status DC Dextrose (Dextrose 50%-Water Syringe) 25 gm 1X ONCE IV Last administered on 03/03/22at 22:39; Start 03/03/22 at 23:00; Stop 03/03/22 at 23:01; Status DC Insulin Human Regular (HumuLIN R VIAL) 10 unit 1X ONCE IV Last administered on 03/03/22at 22:41; Start 03/03/22 at 23:00; Stop 03/03/22 at 23:01; Status DC Furosemide (Lasix) 20 mg 1X ONCE IVP Last administered on 03/03/22at 22:40; Start 03/03/22 at 23:00; Stop 03/03/22 at 23:01; Status DC Fluticasone Propionate (Flonase) 2 spray DAILY NS Last administered on 03/06/22at 08:12; Start 03/04/22 at 09:00 Metoprolol Tartrate (Lopressor) 12.5 mg BID PO Last administered on 03/05/22at 08:19; Start 03/04/22 at 21:00; Stop 03/05/22 at 10:46; Status DC Sodium Polystyrene Sulfonate (Kayexalate) 30 gm 1X ONCE PO Last administered on 03/05/22at 09:13; Start 03/05/22 at 08:45; Stop 03/05/22 at 09:04; Status DC Metolazone (Zaroxolyn) 5 mg 1X ONCE PO Last administered on 03/05/22at 09:19; Start 03/05/22 at 08:45; Stop 03/05/22 at 09:04; Status DC Metoprolol Tartrate (Lopressor) 25 mg BID PO Last administered on 03/05/22at 21:08; Start 03/05/22 at 21:00; Stop 03/06/22 at 07:54; Status DC Metolazone (Zaroxolyn) 5 mg DAILY PO Last administered on 03/06/22at 08:13; Start 03/05/22 at 12:00 Metoprolol Tartrate (Lopressor) 50 mg BID PO Last administered on 03/06/22at 08:13; Start 03/06/22 at 08:00 Active Scripts Active Reported Novolog (Insulin Aspart) 100 Unit/1 Ml Cartridge 100 Unit SQ TIDAFTMEAL PRN PRN Tresiba (Insulin Degludec) 100 Unit/1 Ml Vial 100 Unit SQ DAILY Cetirizine Hcl 10 Mg Tablet 10 Mg PO DAILY Lisinopril 20 Mg Tablet 1 Tab PO DAILY Triamterene-Hctz 75-50 Mg Tab (Triamterene/Hydrochlorothiazid) 1 Each Tablet 1 Tab PO DAILY Allergies Allergies: Coded Allergies: Penicillins (Verified Allergy, Severe, 03/03/22) Vitals VITALS Vital Signs Date Time Temp Pulse Resp B/P (MAP) Pulse Ox O2 Delivery O2 Flow Rate FiO2 03/06/22 12:00 98.2 84 16 134/99 (111) 98 Room Air 98.2 Labs Labs Laboratory Tests Test 03/04/22 17:35 03/05/22 06:40 03/05/22 11:34 03/05/22 12:02 Glucose (Fingerstick) 128 mg/dL (70-99) 152 mg/dL (70-99) Sodium Level 138 mmol/L (136-145) Potassium Level 6.4 mmol/L (3.5-5.1) Chloride Level 108 mmol/L (98-107) Carbon Dioxide Level 20 mmol/L (21-32) Anion Gap 10 (6-14) Blood Urea Nitrogen 49 mg/dL (8-26) Creatinine 2.6 mg/dL (0.7-1.3) Estimated GFR (Cockcroft-Gault) 25.9 BUN/Creatinine Ratio 19 (6-20) Glucose Level 174 mg/dL (70-99) Calcium Level 8.3 mg/dL (8.5-10.1) Total Bilirubin 0.2 mg/dL (0.2-1.0) Aspartate Amino Transf (AST/SGOT) 399 U/L (15-37) Alanine Aminotransferase (ALT/SGPT) 163 U/L (16-63) Alkaline Phosphatase 113 U/L (46-116) Total Protein 6.3 g/dL (6.4-8.2) Albumin 2.4 g/dL (3.4-5.0) Albumin/Globulin Ratio 0.6 (1.0-1.7) Prothrombin Time 13.3 SEC (11.7-14.0) Prothromb Time International Ratio 1.0 (0.8-1.1) Test 03/06/22 07:45 03/06/22 08:20 03/06/22 12:38 Sodium Level 137 mmol/L (136-145) Potassium Level 4.8 mmol/L (3.5-5.1) Chloride Level 104 mmol/L (98-107) Carbon Dioxide Level 21 mmol/L (21-32) Anion Gap 12 (6-14) Blood Urea Nitrogen 53 mg/dL (8-26) Creatinine 2.6 mg/dL (0.7-1.3) Estimated GFR (Cockcroft-Gault) 25.9 BUN/Creatinine Ratio 20 (6-20) Glucose Level 148 mg/dL (70-99) Calcium Level 8.5 mg/dL (8.5-10.1) Total Bilirubin 0.4 mg/dL (0.2-1.0) Direct Bilirubin 0.1 mg/dL (0.0-0.2) Aspartate Amino Transf (AST/SGOT) 385 U/L (15-37) Alanine Aminotransferase (ALT/SGPT) 368 U/L (16-63) Alkaline Phosphatase 180 U/L (46-116) Total Protein 6.4 g/dL (6.4-8.2) Albumin 2.5 g/dL (3.4-5.0) Albumin/Globulin Ratio 0.6 (1.0-1.7) Hepatitis C IgG Antibody Nonreactive (Nonreactive) Glucose (Fingerstick) 141 mg/dL (70-99) 154 mg/dL (70-99) Laboratory Tests Test 03/06/22 07:45 03/06/22 08:20 03/06/22 12:38 Sodium Level 137 mmol/L (136-145) Potassium Level 4.8 mmol/L (3.5-5.1) Chloride Level 104 mmol/L (98-107) Carbon Dioxide Level 21 mmol/L (21-32) Anion Gap 12 (6-14) Blood Urea Nitrogen 53 mg/dL (8-26) Creatinine 2.6 mg/dL (0.7-1.3) Estimated GFR (Cockcroft-Gault) 25.9 BUN/Creatinine Ratio 20 (6-20) Glucose Level 148 mg/dL (70-99) Calcium Level 8.5 mg/dL (8.5-10.1) Total Bilirubin 0.4 mg/dL (0.2-1.0) Direct Bilirubin 0.1 mg/dL (0.0-0.2) Aspartate Amino Transf (AST/SGOT) 385 U/L (15-37) Alanine Aminotransferase (ALT/SGPT) 368 U/L (16-63) Alkaline Phosphatase 180 U/L (46-116) Total Protein 6.4 g/dL (6.4-8.2) Albumin 2.5 g/dL (3.4-5.0) Albumin/Globulin Ratio 0.6 (1.0-1.7) Hepatitis C IgG Antibody Nonreactive (Nonreactive) Glucose (Fingerstick) 141 mg/dL (70-99) 154 mg/dL (70-99) Assessment/Plan Assessment/Plan Attempted to see patient, nurse says that he had to go to another floor to shower. We waited over 15-20 minutes to see the patient without being able to see him. No films to review. Discussed with RN that pt can see us in our outpatient clinic for evaluation. No need to keep him here for the elbow unless x-rays are obtained and there is an acute fracture. That is not the history given by the nurse. Please call now to schedule [phone]. GABBY SAMUEL March 06, 2022 16:06
--- NOTE | 2022-03-06 16:26 | PDOC2 ---
CONSULT Date of Consult Date of Consult DATE: 03/06/22 TIME: 16:17 Reason for Consult Reason for Consult: R elbow pain History of Present Illness Reason for Visit: Patient reports that he was doing triceps exercises 6 weeks ago and the next day, he was unable to use the R arm or even lift his shoulder. He was unable to use it until he had his CT which is the reason he is in the hospital now. He reports that now he can move the arm and use it and has no problems. He did not seek medical care at the time because he thought that he tore his triceps. He had swelling and erythema but that is all gone now. No N/T or radicular symptoms. Past Medical History Past Medical History Recent CT, HTN, DM Cardiovascular: HTN Hepatobiliary: Other (fatty liver by history) Musculoskeletal: Other (tricep tear) Renal/: Chronic renal insuff (?) Endocrine: Diabetes Past Surgical History Past Surgical History cardiac stents and dental work Past Surgical History: Other (teeth extraction) Family History Family History [place] Social History Social History No previous or current tobacco or alcohol use. 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 No ALCOHOL: none Drugs: None Lives: with Family Current Medications Current Medications Home med: lisinopril, triamterene, zyrtec and flonase Current Medications Lorazepam (Ativan Inj) 2 mg 1X ONCE IVP Last administered on 03/03/22at 15:05; Start 03/03/22 at 15:00; Stop 03/03/22 at 15:01; Status DC Hydralazine HCl (Apresoline Inj) 10 mg PRN Q4HRS PRN IVP ELEVATED BP, SEE COMMENTS Last administered on 03/06/22at 04:23; Start 03/03/22 at 15:00 Morphine Sulfate (Morphine Sulfate) 2 mg PRN Q2HR PRN IVP MODERATE TO SEVERE PAIN Last administered on 03/03/22at 15:34; Start 03/03/22 at 15:00 Nitroglycerin (Nitrostat) 0.4 mg PRN Q5MIN PRN SL CHEST PAIN; Start 03/03/22 at 15:00 Aspirin (Ecotrin) 81 mg DAILYWBKFT PO ; Start 03/04/22 at 08:00; Stop 03/03/22 at 18:26; Status DC Heparin Sodium/ Dextrose 250 ml @ 10 mls/hr CONT PRN IV PER PROTOCOL; Start 03/03/22 at 15:15; Stop 03/03/22 at 18:25; Status DC Heparin Sodium (Porcine) (Heparin Sodium) 2,450 unit PRN Q6HRS PRN IV FOR UFH LEVEL LESS THAN 0.2; Start 03/03/22 at 15:15; Stop 03/03/22 at 18:25; Status DC Cetirizine HCl (ZyrTEC) 10 mg DAILY PO Last administered on 03/06/22at 08:12; Start 03/04/22 at 09:00 Lisinopril (Prinivil) 20 mg DAILY PO ; Start 03/04/22 at 09:00; Stop 03/03/22 at 16:56; Status DC Triamterene/HCTZ (Maxzide 37.5/ 25mg) 2 tab DAILY PO ; Start 03/04/22 at 09:00; Stop 03/03/22 at 16:56; Status DC Insulin Human Lispro (HumaLOG) 0-7 UNITS TIDWMEALS SQ Last administered on 03/06/22at 12:40; Start 03/03/22 at 17:00 Dextrose (Dextrose 50%-Water Syringe) 12.5 gm PRN Q15MIN PRN IV SEE COMMENTS; Start 03/03/22 at 16:00 Ondansetron HCl (Zofran) 4 mg PRN Q6HRS PRN IVP NAUSEA/VOMITING Last administered on 03/05/22at 21:09; Start 03/03/22 at 16:15 Calcium Carbonate/ Glycine (Tums) 500 mg PRN Q3HRS PRN PO UPSET STOMACH; Start 03/03/22 at 16:15 Zolpidem Tartrate (Ambien) 5 mg PRN QHS PRN PO INSOMNIA, MAY REPEAT IN 1HR; Start 03/03/22 at 16:15 Info (Non-Icu Electrolyte Protocol) 1 ea PRN DAILY PRN MC SEE COMMENTS; Start 03/03/22 at 16:15 Oxycodone/ Acetaminophen (Percocet 5/325) 1 tab PRN Q4HRS PRN PO MILD PAIN, 1ST CHOICE; Start 03/03/22 at 16:15 Oxycodone/ Acetaminophen (Percocet 5/325) 2 tab PRN Q4HRS PRN PO MODERATE PAIN, SEVERE PAIN; Start 03/03/22 at 16:15 Acetaminophen (Tylenol) 650 mg PRN Q6HRS PRN PO Headaches, Temp > 101.5F; Start 03/03/22 at 16:15 Senna/Docusate Sodium (Senna Plus) 1 tab BID PO Last administered on 03/05/22at 08:18; Start 03/03/22 at 21:00 Calcium Gluconate (Calcium Gluconate) 1,000 mg 1X ONCE IVP Last administered on 03/03/22at 16:42; Start 03/03/22 at 17:00; Stop 03/03/22 at 17:01; Status DC Sodium Bicarbonate (Sodium Bicarb Adult 8.4% Syr) 50 meq 1X ONCE IV Last administered on 03/03/22at 16:41; Start 03/03/22 at 17:00; Stop 03/03/22 at 17:01; Status DC Dextrose (Dextrose 50%-Water Syringe) 25 gm 1X ONCE IV Last administered on 03/03/22at 16:41; Start 03/03/22 at 17:00; Stop 03/03/22 at 17:01; Status DC Insulin Human Regular (HumuLIN R VIAL) 10 unit 1X ONCE IV Last administered on 03/03/22at 16:41; Start 03/03/22 at 17:00; Stop 03/03/22 at 17:01; Status DC Sodium Polystyrene Sulfonate (Kayexalate) 30 gm 1X ONCE PO Last administered on 03/03/22at 16:47; Start 03/03/22 at 17:00; Stop 03/03/22 at 17:01; Status DC Sodium Chloride 1,000 ml @ 100 mls/hr Q10H IV Last administered on 03/05/22at 08:21; Start 03/03/22 at 16:45; Stop 03/05/22 at 11:47; Status DC Iodixanol (Visipaque 320) 100 ml STK-MED ONCE .ROUTE ; Start 03/03/22 at 17:02; Stop 03/03/22 at 17:02; Status DC Lidocaine HCl (Xylocaine-Mpf 1% 2ml Vial) 2 ml STK-MED ONCE .ROUTE ; Start 03/03/22 at 17:02; Stop 03/03/22 at 17:02; Status DC Heparin Sodium/ Sodium Chloride 1,500 ml @ As Directed STK-MED ONCE .ROUTE ; Start 03/03/22 at 17:02; Stop 03/03/22 at 17:02; Status DC Fentanyl Citrate (Fentanyl 2ml Vial) 100 mcg STK-MED ONCE .ROUTE ; Start 03/03/22 at 17:03; Stop 03/03/22 at 17:03; Status DC Midazolam HCl (Versed) 2 mg STK-MED ONCE .ROUTE ; Start 03/03/22 at 17:03; Stop 03/03/22 at 17:03; Status DC Bivalirudin (Angiomax) 250 mg STK-MED ONCE IVP ; Start 03/03/22 at 17:03; Stop 03/03/22 at 17:03; Status DC Heparin Sodium (Porcine) (Heparin Sodium) 10,000 unit STK-MED ONCE .ROUTE ; Start 03/03/22 at 17:03; Stop 03/03/22 at 17:03; Status DC Verapamil HCl (Verapamil) 5 mg STK-MED ONCE .ROUTE ; Start 03/03/22 at 17:03; Stop 03/03/22 at 17:04; Status DC Nitroglycerin (Nitroglycerin) 200 mcg STK-MED ONCE .ROUTE ; Start 03/03/22 at 17:03; Stop 03/03/22 at 17:04; Status DC Nitroglycerin (Nitroglycerin) 200 mcg 1X ONCE IART Last administered on 03/03/22at 17:25; Start 03/03/22 at 18:15; Stop 03/03/22 at 18:16; Status DC Verapamil HCl (Verapamil) 2.5 mg 1X ONCE IART Last administered on 03/03/22at 17:25; Start 03/03/22 at 18:15; Stop 03/03/22 at 18:16; Status DC Heparin Sodium (Porcine) (Heparin Sodium) 2,500 unit 1X ONCE IART Last administered on 03/03/22at 17:28; Start 03/03/22 at 18:15; Stop 03/03/22 at 18:16; Status DC Heparin Sodium/ Sodium Chloride (HEPARIN for ARTERIAL LINE FLUSH) 1,000 unit 1X ONCE IART Last administered on 03/03/22at 17:45; Start 03/03/22 at 18:15; Stop 03/03/22 at 18:16; Status DC Midazolam HCl (Versed) 2 mg 1X ONCE IV Last administered on 03/03/22at 17:27; Start 03/03/22 at 18:15; Stop 03/03/22 at 18:16; Status DC Fentanyl Citrate (Fentanyl 2ml Vial) 100 mcg 1X ONCE IV Last administered on 03/03/22at 17:56; Start 03/03/22 at 18:15; Stop 03/03/22 at 18:16; Status DC Iodixanol (Visipaque 320) 100 ml 1X ONCE IART Last administered on 03/03/22at 18:15; Start 03/03/22 at 18:15; Stop 03/03/22 at 18:16; Status DC Bivalirudin (Angiomax) 250 mg 1X ONCE IVP Last administered on 03/03/22at 17:39; Start 03/03/22 at 18:15; Stop 03/03/22 at 18:16; Status DC Lidocaine HCl (Xylocaine-Mpf 1% 2ml Vial) 2 ml 1X ONCE INJ Last administered on 03/03/22at 17:13; Start 03/03/22 at 18:15; Stop 03/03/22 at 18:16; Status DC Nitroglycerin (Nitroglycerin) 200 mcg 1X ONCE ICAR Last administered on 03/03/22at 18:15; Start 03/03/22 at 18:15; Stop 03/03/22 at 18:16; Status DC Clopidogrel Bisulfate (Plavix) 600 mg 1X ONCE PO Last administered on 03/03/22at 18:15; Start 03/03/22 at 18:15; Stop 03/03/22 at 18:16; Status DC Tirofiban/Sodium Chloride 250 ml @ 0 mls/hr CONT PRN IV PER PROTOCOL Last administered on 03/03/22at 18:15; Start 03/03/22 at 18:15; Stop 03/04/22 at 12:14; Status DC Nitroglycerin (Nitroglycerin) 200 mcg STK-MED ONCE .ROUTE ; Start 03/03/22 at 18:12; Stop 03/03/22 at 18:12; Status DC Sodium Chloride 1,000 ml @ 75 mls/hr [id number] IV ; Start 03/03/22 at 18:30; Stop 03/04/22 at 16:24; Status DC Aspirin (Ecotrin) 325 mg DAILYWBKFT PO Last administered on 03/06/22at 08:12; Start 03/04/22 at 08:00 Clopidogrel Bisulfate (Plavix) 75 mg DAILYWBKFT PO Last administered on 03/06/22at 08:13; Start 03/04/22 at 08:00 Atorvastatin Calcium (Lipitor) 40 mg QHS PO Last administered on 03/05/22at 21:07; Start 03/03/22 at 21:00 Calcium Gluconate (Calcium Gluconate) 1,000 mg 1X ONCE IVP Last administered on 03/03/22at 22:40; Start 03/03/22 at 23:00; Stop 03/03/22 at 23:01; Status DC Sodium Bicarbonate (Sodium Bicarb Adult 8.4% Syr) 50 meq 1X ONCE IV Last administered on 03/03/22at 22:39; Start 03/03/22 at 23:00; Stop 03/03/22 at 23:01; Status DC Dextrose (Dextrose 50%-Water Syringe) 25 gm 1X ONCE IV Last administered on 03/03/22at 22:39; Start 03/03/22 at 23:00; Stop 03/03/22 at 23:01; Status DC Insulin Human Regular (HumuLIN R VIAL) 10 unit 1X ONCE IV Last administered on 03/03/22at 22:41; Start 03/03/22 at 23:00; Stop 03/03/22 at 23:01; Status DC Furosemide (Lasix) 20 mg 1X ONCE IVP Last administered on 03/03/22at 22:40; Start 03/03/22 at 23:00; Stop 03/03/22 at 23:01; Status DC Fluticasone Propionate (Flonase) 2 spray DAILY NS Last administered on 03/06/22at 08:12; Start 03/04/22 at 09:00 Metoprolol Tartrate (Lopressor) 12.5 mg BID PO Last administered on 03/05/22at 08:19; Start 03/04/22 at 21:00; Stop 03/05/22 at 10:46; Status DC Sodium Polystyrene Sulfonate (Kayexalate) 30 gm 1X ONCE PO Last administered on 03/05/22at 09:13; Start 03/05/22 at 08:45; Stop 03/05/22 at 09:04; Status DC Metolazone (Zaroxolyn) 5 mg 1X ONCE PO Last administered on 03/05/22at 09:19; Start 03/05/22 at 08:45; Stop 03/05/22 at 09:04; Status DC Metoprolol Tartrate (Lopressor) 25 mg BID PO Last administered on 03/05/22at 21:08; Start 03/05/22 at 21:00; Stop 03/06/22 at 07:54; Status DC Metolazone (Zaroxolyn) 5 mg DAILY PO Last administered on 03/06/22at 08:13; Start 03/05/22 at 12:00 Metoprolol Tartrate (Lopressor) 50 mg BID PO Last administered on 03/06/22at 08:13; Start 03/06/22 at 08:00 Active Scripts Active Reported Novolog (Insulin Aspart) 100 Unit/1 Ml Cartridge 100 Unit SQ TIDAFTMEAL PRN PRN Tresiba (Insulin Degludec) 100 Unit/1 Ml Vial 100 Unit SQ DAILY Cetirizine Hcl 10 Mg Tablet 10 Mg PO DAILY Lisinopril 20 Mg Tablet 1 Tab PO DAILY Triamterene-Hctz 75-50 Mg Tab (Triamterene/Hydrochlorothiazid) 1 Each Tablet 1 Tab PO DAILY Allergies Allergies: Coded Allergies: Penicillins (Verified Allergy, Severe, 03/03/22) ROS Review of System Pt denies headache, blurry vision, double vision, difficulty hearing or ringing in the ears. No difficulty swallowing, no thyroid problems. No CP or SOB now. No abdominal pain. He did have constipation when he came in, no blood in the stool or urine. No psychiatric illnesses. Physical Exam Physical Exam Pt is a pleasant 51 yo male, R hand dominant. Sitting up in wheelchair, interacts appropriately. Non labored breathing. R elbow has intact skin. No erythema, warmth or induration. Full AROM of the elbow. No TTP. NVI in the hand. Vitals VITALS Vital Signs Date Time Temp Pulse Resp B/P (MAP) Pulse Ox O2 Delivery O2 Flow Rate FiO2 03/06/22 12:00 98.2 84 16 134/99 (111) 98 Room Air 98.2 Labs Labs Laboratory Tests Test 03/04/22 17:35 03/05/22 06:40 03/05/22 11:34 03/05/22 12:02 Glucose (Fingerstick) 128 mg/dL (70-99) 152 mg/dL (70-99) Sodium Level 138 mmol/L (136-145) Potassium Level 6.4 mmol/L (3.5-5.1) Chloride Level 108 mmol/L (98-107) Carbon Dioxide Level 20 mmol/L (21-32) Anion Gap 10 (6-14) Blood Urea Nitrogen 49 mg/dL (8-26) Creatinine 2.6 mg/dL (0.7-1.3) Estimated GFR (Cockcroft-Gault) 25.9 BUN/Creatinine Ratio 19 (6-20) Glucose Level 174 mg/dL (70-99) Calcium Level 8.3 mg/dL (8.5-10.1) Total Bilirubin 0.2 mg/dL (0.2-1.0) Aspartate Amino Transf (AST/SGOT) 399 U/L (15-37) Alanine Aminotransferase (ALT/SGPT) 163 U/L (16-63) Alkaline Phosphatase 113 U/L (46-116) Total Protein 6.3 g/dL (6.4-8.2) Albumin 2.4 g/dL (3.4-5.0) Albumin/Globulin Ratio 0.6 (1.0-1.7) Prothrombin Time 13.3 SEC (11.7-14.0) Prothromb Time International Ratio 1.0 (0.8-1.1) Test 03/06/22 07:45 03/06/22 08:20 03/06/22 12:38 Sodium Level 137 mmol/L (136-145) Potassium Level 4.8 mmol/L (3.5-5.1) Chloride Level 104 mmol/L (98-107) Carbon Dioxide Level 21 mmol/L (21-32) Anion Gap 12 (6-14) Blood Urea Nitrogen 53 mg/dL (8-26) Creatinine 2.6 mg/dL (0.7-1.3) Estimated GFR (Cockcroft-Gault) 25.9 BUN/Creatinine Ratio 20 (6-20) Glucose Level 148 mg/dL (70-99) Calcium Level 8.5 mg/dL (8.5-10.1) Total Bilirubin 0.4 mg/dL (0.2-1.0) Direct Bilirubin 0.1 mg/dL (0.0-0.2) Aspartate Amino Transf (AST/SGOT) 385 U/L (15-37) Alanine Aminotransferase (ALT/SGPT) 368 U/L (16-63) Alkaline Phosphatase 180 U/L (46-116) Total Protein 6.4 g/dL (6.4-8.2) Albumin 2.5 g/dL (3.4-5.0) Albumin/Globulin Ratio 0.6 (1.0-1.7) Hepatitis C IgG Antibody Nonreactive (Nonreactive) Glucose (Fingerstick) 141 mg/dL (70-99) 154 mg/dL (70-99) Laboratory Tests Test 03/06/22 07:45 03/06/22 08:20 03/06/22 12:38 Sodium Level 137 mmol/L (136-145) Potassium Level 4.8 mmol/L (3.5-5.1) Chloride Level 104 mmol/L (98-107) Carbon Dioxide Level 21 mmol/L (21-32) Anion Gap 12 (6-14) Blood Urea Nitrogen 53 mg/dL (8-26) Creatinine 2.6 mg/dL (0.7-1.3) Estimated GFR (Cockcroft-Gault) 25.9 BUN/Creatinine Ratio 20 (6-20) Glucose Level 148 mg/dL (70-99) Calcium Level 8.5 mg/dL (8.5-10.1) Total Bilirubin 0.4 mg/dL (0.2-1.0) Direct Bilirubin 0.1 mg/dL (0.0-0.2) Aspartate Amino Transf (AST/SGOT) 385 U/L (15-37) Alanine Aminotransferase (ALT/SGPT) 368 U/L (16-63) Alkaline Phosphatase 180 U/L (46-116) Total Protein 6.4 g/dL (6.4-8.2) Albumin 2.5 g/dL (3.4-5.0) Albumin/Globulin Ratio 0.6 (1.0-1.7) Hepatitis C IgG Antibody Nonreactive (Nonreactive) Glucose (Fingerstick) 141 mg/dL (70-99) 154 mg/dL (70-99) Assessment/Plan Assessment/Plan R elbow pain/swelling now resolved. We can get some x-rays of the elbow for completeness. No restrictions. No need for follow up unless he has a return of his symptoms. Pt agrees with plan. GABBY SAMUEL March 06, 2022 16:26
[2022-03-06] MEDS ORDERED: VECURONIUM BOLUS 10 MG VIAL. IV ONE (18:00)
[2022-03-07] VITALS (8 sets, daily range): BP systolic 136–185; BP diastolic 84–106
[2022-03-07 06:08] LABS: ALBUMIN 2.7 g/dL (3.4-5.0); CREATININE 2.6 mg/dL (0.7-1.3); DIRECT BILIRUBIN 0.2 mg/dL (0.0-0.2); GFR 25.9; TOTAL BILIRUBIN 0.6 mg/dL (0.2-1.0); TOTAL PROTEIN 6.8 g/dL (6.4-8.2)
[2022-03-07] MEDS: INSULIN LISPRO 300 UNITS/3 ML VIAL. SQ SCH ×4 (07:54→22:10)
[2022-03-07] MEDS: metOLazone 2.5 MG TABLET PO SCH (08:00)
[2022-03-07] MEDS: SENNOSIDES/DOCUSATE 8.6/50MG TABLET. PO SCH ×2 (08:00→20:34)
[2022-03-07] MEDS: EZETIMIBE 10 MG TABLET. PO SCH (08:01)
[2022-03-07] MEDS: ASPIRIN ENTERIC COATED 325 MG TABLET.DR. PO SCH (08:01)
[2022-03-07] MEDS: CLOPIDOGREL BISULFATE 75 MG TABLET PO SCH (08:01)
[2022-03-07] MEDS: CETIRIZINE HCL 10 MG TABLET. PO SCH (08:01)
[2022-03-07] MEDS: METOPROLOL TART IMMED RELEASE 50 MG TABLET. PO SCH ×2 (08:02→20:35)
[2022-03-07] MEDS: FLUTICASONE 50MCG/NASAL SPRAY 16GM BOTTLE. NS SCH (08:02)
--- NOTE | 2022-03-07 08:22 | RAD ---
XR ELBOW_RIGHT History: Reason: R elbow pain 6 weeks ago / Spl. Instructions: / History: Technique: 2 views left elbow. Comparison: None. Findings: No dislocation. No acute fracture. Mild elbow degenerative changes. Olecranon enthesophyte. No signif icant elbow joint effusion. Posterior elbow soft tissue swelling. Impression: 1. No acute osseous abnormality. 2. Posterior elbow soft tissue swelling, may represent olecranon bursitis. Electronically signed by: Alexander Little DO (03/07/2022 8:20 AM) [id number]
--- NOTE | 2022-03-07 09:23 | PDOC ---
DATE OF SERVICE DATE: 03/07/22 TIME: 09:23 SUBJECTIVE ROS Eating Lunch . No acute events overnight. OBJECTIVE Vital Signs Vital Signs Date Time Temp Pulse Resp B/P (MAP) Pulse Ox O2 Delivery O2 Flow Rate FiO2 03/07/22 08:02 90 158/87 03/07/22 07:49 98.5 18 97 Room Air 98.5 I & 0 Intake and Output 03/07/22 07:00 Output Total 1600 ml Balance -1600 ml Output Urine Total 1600 ml PHYSICAL EXAM Physical Exam General: Alert, Oriented X3 HEENT: Atraumatic Lungs: Clear to auscultation Heart: Regular rate, Normal S1, Normal S2 Abdomen: Normal bowel sounds, Soft, No tenderness, No hepatosplenomegaly Extremities: No clubbing Neuro: Normal speech Psych/Mental Status: Mental status NL No Rodriguez DIAGNOSIS/ASSESSMENT Assessment & Plan WINNIE- No previous labs available to me, per Card note baseline Cr 1.5 in the past Creat 2.1-->2.6- ? Plateau, cardiorenal - SD/ RAKESH .Non Oliguric,Patient denies any Past History of Abnormal renal function, follows with PCP Reports using large amounts of Protein supplements for past several years . Was also on Lisinopril, Triam/HCTZ and for past 1 week prior to hospitalization have been taking 4-8 Tabs of Ibuprofen/day (today he states has been taking for a month at least) Supportive care, Maintain fluid balance Avoid Nephrotoxins. Will Hold off Metolazone . May not need to restart . Hold off Lisnopril, Maxzide etc for now. Dw pt and cardiology ? CKD per chart notes, patient denies . Suspect 2/2 Lng standing Hx of HTN (since he was in his 20's) Use of NSAID's Hyperkalemia- Resolved . Was on PAULETTE-, Triam and Protein supplements with K . Acute SD status S/P cath with stent placement to the circumflex- on 03/03/2022. HTN urgency POA- Card managing DM2: insulin dependent Discussed extensively with Patient anf GF (on Phone) at great length regarding CKD, hyperkalemia, Low K diet , avoid high amts of protein supplements, balancd healthy diet Transaminaiti- Will need further geller. GI following . COMMENT/RELEVANT DATA Meds Current Medications Medications (Trade) Dose Ordered Sig/[place] Start Time Stop Time Status Last Admin Dose Admin Acetaminophen (Tylenol) 650 mg PRN Q6HRS PRN 03/03/22 16:15 Aspirin (Ecotrin) 325 mg DAILYWBKFT 03/04/22 08:00 03/07/22 08:01 325 MG Atorvastatin Calcium (Lipitor) 40 mg QHS 03/03/22 21:00 03/06/22 18:16 DC 03/05/22 21:07 40 MG Bivalirudin (Angiomax) 250 mg 1X ONCE 03/03/22 18:15 03/03/22 18:16 DC 03/03/22 17:39 250 MG Calcium Carbonate/ Glycine (Tums) 500 mg PRN Q3HRS PRN 03/03/22 16:15 Calcium Gluconate (Calcium Gluconate) 1,000 mg 1X ONCE 03/03/22 23:00 03/03/22 23:01 DC 03/03/22 22:40 1,000 MG Cetirizine HCl (ZyrTEC) 10 mg DAILY 03/04/22 09:00 03/07/22 08:01 10 MG Clopidogrel Bisulfate (Plavix) 75 mg DAILYWBKFT 03/04/22 08:00 03/07/22 08:01 75 MG Dextrose (Dextrose 50%-Water Syringe) 25 gm 1X ONCE 03/03/22 23:00 03/03/22 23:01 DC 03/03/22 22:39 25 GM EZETIMIBE (Zetia) 10 mg DAILY 03/07/22 09:00 03/07/22 08:01 10 MG Fentanyl Citrate (Fentanyl 2ml Vial) 100 mcg 1X ONCE 03/03/22 18:15 03/03/22 18:16 DC 03/03/22 17:56 100 MCG Fluticasone Propionate (Flonase) 2 spray DAILY 03/04/22 09:00 03/07/22 08:02 2 SPRAY Furosemide (Lasix) 20 mg 1X ONCE 03/03/22 23:00 03/03/22 23:01 DC 03/03/22 22:40 20 MG Heparin Sodium (Porcine) (Heparin Sodium) 2,500 unit 1X ONCE 03/03/22 18:15 03/03/22 18:16 DC 03/03/22 17:28 2,500 UNIT Heparin Sodium/ Dextrose 250 ml @ 10 mls/hr CONT PRN 03/03/22 15:15 03/03/22 18:25 DC Heparin Sodium/ Sodium Chloride (HEPARIN for ARTERIAL LINE FLUSH) 1,000 unit 1X ONCE 03/03/22 18:15 03/03/22 18:16 DC 03/03/22 17:45 1,000 UNIT Hydralazine HCl (Apresoline Inj) 10 mg PRN Q4HRS PRN 03/03/22 15:00 03/06/22 04:23 10 MG Info (Non-Icu Electrolyte Protocol) 1 ea PRN DAILY PRN 03/03/22 16:15 Insulin Human Lispro (HumaLOG) 0-7 UNITS TIDWMEALS 03/03/22 17:00 03/06/22 12:40 3 UNITS Insulin Human Regular (HumuLIN R VIAL) 10 unit 1X ONCE 03/03/22 23:00 03/03/22 23:01 DC 03/03/22 22:41 10 UNIT Iodixanol (Visipaque 320) 100 ml 1X ONCE 03/03/22 18:15 03/03/22 18:16 DC 03/03/22 18:15 133 ML Lidocaine HCl (Xylocaine-Mpf 1% 2ml Vial) 2 ml 1X ONCE 03/03/22 18:15 03/03/22 18:16 DC 03/03/22 17:13 2 ML Lisinopril (Prinivil) 20 mg DAILY 03/04/22 09:00 03/03/22 16:56 DC Lorazepam (Ativan Inj) 2 mg 1X ONCE 03/03/22 15:00 03/03/22 15:01 DC 03/03/22 15:05 2 MG Metolazone (Zaroxolyn) 5 mg DAILY 03/05/22 12:00 03/07/22 08:00 5 MG Metoprolol Tartrate (Lopressor) 50 mg BID 03/06/22 08:00 03/07/22 08:02 50 MG Midazolam HCl (Versed) 2 mg 1X ONCE 03/03/22 18:15 03/03/22 18:16 DC 03/03/22 17:27 2 MG Morphine Sulfate (Morphine Sulfate) 2 mg PRN Q2HR PRN 03/03/22 15:00 03/03/22 15:34 2 MG Nitroglycerin (Nitroglycerin) 200 mcg STK-MED ONCE 03/03/22 18:12 03/03/22 18:12 DC Nitroglycerin (Nitrostat) 0.4 mg PRN Q5MIN PRN 03/03/22 15:00 Ondansetron HCl (Zofran) 4 mg PRN Q6HRS PRN 03/03/22 16:15 03/05/22 21:09 4 MG Oxycodone/ Acetaminophen (Percocet 5/325) 2 tab PRN Q4HRS PRN 03/03/22 16:15 Senna/Docusate Sodium (Senna Plus) 1 tab BID 03/03/22 21:00 03/07/22 08:00 1 TAB Sodium Polystyrene Sulfonate (Kayexalate) 30 gm 1X ONCE 03/05/22 08:45 03/05/22 09:04 DC 03/05/22 09:13 30 GM Sodium Bicarbonate (Sodium Bicarb Adult 8.4% Syr) 50 meq 1X ONCE 03/03/22 23:00 03/03/22 23:01 DC 03/03/22 22:39 50 MEQ Sodium Chloride 1,000 ml @ 75 mls/hr [id number] 03/03/22 18:30 03/04/22 16:24 DC Tirofiban/Sodium Chloride 250 ml @ 0 mls/hr CONT PRN 03/03/22 18:15 03/04/22 12:14 DC 03/03/22 18:15 8.8 MLS/HR Triamterene/HCTZ (Maxzide 37.5/ 25mg) 2 tab DAILY 03/04/22 09:00 03/03/22 16:56 DC Vecuronium [place] (Norcuron Bolus) 6 mg 1X ONCE 03/06/22 18:00 03/06/22 18:01 Cancel Verapamil HCl (Verapamil) 2.5 mg 1X ONCE 03/03/22 18:15 03/03/22 18:16 DC 03/03/22 17:25 2.5 MG Zolpidem Tartrate (Ambien) 5 mg PRN QHS PRN 03/03/22 16:15 Lab Laboratory Tests Test 03/06/22 12:38 03/06/22 17:37 03/07/22 05:10 03/07/22 07:54 Glucose (Fingerstick) 154 mg/dL (70-99) 116 mg/dL (70-99) 133 mg/dL (70-99) Sodium Level 138 mmol/L (136-145) Potassium Level 5.0 mmol/L (3.5-5.1) Chloride Level 104 mmol/L (98-107) Carbon Dioxide Level 23 mmol/L (21-32) Anion Gap 11 (6-14) Blood Urea Nitrogen 58 mg/dL (8-26) Creatinine 2.6 mg/dL (0.7-1.3) Estimated GFR (Cockcroft-Gault) 25.9 Glucose Level 131 mg/dL (70-99) Calcium Level 9.0 mg/dL (8.5-10.1) Total Bilirubin 0.6 mg/dL (0.2-1.0) Direct Bilirubin 0.2 mg/dL (0.0-0.2) Aspartate Amino Transf (AST/SGOT) 458 U/L (15-37) Alanine Aminotransferase (ALT/SGPT) 615 U/L (16-63) Alkaline Phosphatase 309 U/L (46-116) Total Protein 6.8 g/dL (6.4-8.2) Albumin 2.7 g/dL (3.4-5.0) Hepatitis B Surface Antigen Nonreactive (Nonreactive) Results All relevant outside records, renal labs, imaging studies, telemetry/EKG's were reviewed. Justicifation of Admission Dx: Justifications for Admission: Justification of Admission Dx: Yes SD: Acute NSTEMI KERWIN STANLEY MD March 07, 2022 09:23
--- NOTE | 2022-03-07 10:33 | NUR ---
Per Dr. Mcgee, HOLD 03/08/2022 dose of Metolazone.
--- NOTE | 2022-03-07 10:42 | PDOC ---
Date of Service: DATE: 03/07/22 TIME: 10:37 Subjective: Subjective: Appetite better today, no nausea. No abd pain. Asking about going home. Objective: Objective: Hep B negative. Echo 03/03 showed EF 45%. Vital Signs: Vital Signs Date Time Temp Pulse Resp B/P (MAP) Pulse Ox O2 Delivery O2 Flow Rate FiO2 03/07/22 08:02 90 158/87 03/07/22 07:49 98.5 18 97 Room Air 98.5 Labs: Laboratory Tests Test 03/06/22 12:38 03/06/22 17:37 03/07/22 05:10 03/07/22 07:54 Glucose (Fingerstick) 154 mg/dL 116 mg/dL 133 mg/dL Sodium Level 138 mmol/L Potassium Level 5.0 mmol/L Chloride Level 104 mmol/L Carbon Dioxide Level 23 mmol/L Anion Gap 11 Blood Urea Nitrogen 58 mg/dL Creatinine 2.6 mg/dL Estimated GFR (Cockcroft-Gault) 25.9 Glucose Level 131 mg/dL Calcium Level 9.0 mg/dL Total Bilirubin 0.6 mg/dL Direct Bilirubin 0.2 mg/dL Aspartate Amino Transf (AST/SGOT) 458 U/L Alanine Aminotransferase (ALT/SGPT) 615 U/L Alkaline Phosphatase 309 U/L Total Protein 6.8 g/dL Albumin 2.7 g/dL Hepatitis B Surface Antigen Nonreactive Imaging: Elbow X-Ray Impression: 1. No acute osseous abnormality. 2. Posterior elbow soft tissue swelling, may represent olecranon bursitis. PE: GEN: NAD LUNGS: CTAB HEART: RRR ABD: NABS, S/ND/NT NEURO/PSYCH: A & O 3 A/P: NSTEMI, CAD s/p stent, WINNIE Elevated LFTs - worse -- ?abnormal LFTs 2/2 cardiac issues? Worse today - will review w/ Dr. Peña. Justicifation of Admission Dx: Justifications for Admission: Justification of Admission Dx: Yes NM: Acute NSTEMI RORY BURTON March 07, 2022 10:42
--- NOTE | 2022-03-07 11:04 | PDOC ---
SG CARTER STOCK DEALER 03/07/22 1104: CARDIO Progress Notes Date and Time Date of Service 03/07/2022 Time of Evaluation 0920 Subjective Subjective: No Chest Pain, No shortness of breath, No Palpitations Vitals Vitals Vital Signs Date Time Temp Pulse Resp B/P (MAP) Pulse Ox O2 Delivery O2 Flow Rate FiO2 03/07/22 08:02 90 158/87 03/07/22 07:49 98.5 18 97 Room Air 98.5 Weight Weight [ ] Input and Output Intake and Output Intake and Output 03/07/22 07:00 Output Total 1600 ml Balance -1600 ml Output Urine Total 1600 ml Laboratory Labs Laboratory Tests Test 03/06/22 12:38 03/06/22 17:37 03/07/22 05:10 03/07/22 07:54 Glucose (Fingerstick) 154 mg/dL (70-99) 116 mg/dL (70-99) 133 mg/dL (70-99) Sodium Level 138 mmol/L (136-145) Potassium Level 5.0 mmol/L (3.5-5.1) Chloride Level 104 mmol/L (98-107) Carbon Dioxide Level 23 mmol/L (21-32) Anion Gap 11 (6-14) Blood Urea Nitrogen 58 mg/dL (8-26) Creatinine 2.6 mg/dL (0.7-1.3) Estimated GFR (Cockcroft-Gault) 25.9 Glucose Level 131 mg/dL (70-99) Calcium Level 9.0 mg/dL (8.5-10.1) Total Bilirubin 0.6 mg/dL (0.2-1.0) Direct Bilirubin 0.2 mg/dL (0.0-0.2) Aspartate Amino Transf (AST/SGOT) 458 U/L (15-37) Alanine Aminotransferase (ALT/SGPT) 615 U/L (16-63) Alkaline Phosphatase 309 U/L (46-116) Total Protein 6.8 g/dL (6.4-8.2) Albumin 2.7 g/dL (3.4-5.0) Hepatitis B Surface Antigen Nonreactive (Nonreactive) Physical Exam HEENT: Neck Supple W Full Motion Chest: Symmetric LUNGS: Clear to Auscultation Heart: RRR (SR) Abdomen: Soft N/T Extremities: No Edema Neurology: alert, oriented, follow commands Assessment Assessment 1. Acute non-STEMI: Cardiac catheterization showed 100% occluded large caliber leLCx. He underwent successful PCI/FAISAL placement. Telemetry showed few brief episodes of NSVT- none further. Continue secondary prevention including dual antiplatelet therapy. Cardiac rehab referral 2. Acute combined systolic and diastolic heart failure: 2D echo showed LVEF 45% with basal to mid inferior, posterior and lateral wall hypokinesis. He is clinically well compensated. 3. Accelerated hypertension: add norvasc to metoprolol. 4. Acute on chronic renal insufficiency, hyperkalemia: Nephrology following. avoid nephrotoxins 5. Hyperlipidemia: LDL significantly elevated at 247. Hold statin for now and trend LFTs. Start on zetia. PCSK9i would be an option but affordability is in question given his lack of health ins. 6. DM2: Treat per IM 6. Transaminitis: GI following Justicifation of Admission Dx: Justifications for Admission: Justification of Admission Dx: Yes [place]: Acute NSTEMI JESSENIA CLARK MD 03/07/22 1834: CARDIO Progress Notes Assessment Assessment Patient seen and examined. Agree with [facility] [employer]'s assessment and plan. Tele did not show any significant arrhythmias s/p PCI/FAISAL to LCX, CP free - continue DAPT Statins stopped due to elevated LFT's - continue zetia and consider PCSK9 as outpatient DC home when OK from nephrology standpoint SG CARTER APRN March 07, 2022 11:04 JESSENIA CLARK MD March 07, 2022 18:34
--- NOTE | 2022-03-07 11:27 | PDOC ---
[facility] [facility] PROGRESS NOTE Date of Service DOS: DATE: 03/07/22 TIME: 11:25 Chief Complaint Chief Complaint Acute [place] status post cardiac cath with stent to the circumflex Systolic CHF with LVEF of 45% on echo done 03/03/2022 Probable noncompliance with going to the doctor per his significant other Jeimy Probable longstanding hypertension contributing to chronic renal insufficiency Baseline creatinine 2.1 WINNIE/CKD Hyperkalemia Transaminitishistory of hepatomegaly and fatty liver disease. No obvious clear etiology for elevation. Possibly related to recent WA and CHF Diabetes Headache Right elbow olecranon bursitis History of Present Illness History of Present Illness 03/07/2022 No acute events overnight. Patient seen examined bedside. Potassium of 5.0. Liver enzymes elevating. Creatinine stable at 2.6. No complaints today. May be some nausea. Patient describes himself as a general follow-up. No acute blood pressure elevations but still elevated in the 140s to 150s. Metolazone will be held tomorrow per nephrology. GI evaluating transaminitis. So far hepatitis panel has been negative. Statin have been substituted for Zetia. No jaundice on my examination. Patient's chart, labs, images were reviewed and discussed with RN 03/06/2022 No acute events overnight. Patient seen examined bedside. Blood pressure still elevated in the high 170s. Metoprolol increased to 50 mg twice daily. Patient started on metoprolol this morning. Creatinine currently at 2.6 and plateaued. Potassium improved that currently at 4.8. We will repeat potassium tomorrow morning after started on metolazone. Discussed with cardiology. Counseled extensively on diabetic diet and decreasing protein intake and balancing diet with fibers. Counseled against additional protein supplements. 03/05/2022 Patient seen and examined Discussed with his significant other and I reviewed the chart with her per his request Discussed with Dr. You Discussed with RN Chart reviewed His potassium was up to 6.4 today we are giving Kayexalate Nephrology also started Zaroxolyn 03/04/2022 Patient seen and examined in the ICU He is currently on Aggrastat drip Tolerated his cardiac cath with stent to the circumflex yesterday Discussed with RN Chart reviewed Vitals/I&O Vitals/I&O: Vital Signs Date Time Temp Pulse Resp B/P (MAP) Pulse Ox O2 Delivery O2 Flow Rate FiO2 03/07/22 11:16 97.8 83 18 158/95 (116) 97 Room Air 97.8 I & O 03/06/22 03/06/22 03/07/22 15:00 23:00 07:00 Output Total 400 ml 750 ml 450 ml Balance -400 ml -750 ml -450 ml Physical Exam General: Alert, Oriented X3 Heart: Regular rate, Normal S1, Normal S2 Abdomen: Normal bowel sounds, Soft, No tenderness, No hepatosplenomegaly Extremities: No clubbing Skin: No breakdown, No significant lesion Labs Labs: Laboratory Tests Test 03/06/22 12:38 03/06/22 17:37 03/07/22 05:10 03/07/22 07:54 Glucose (Fingerstick) 154 mg/dL (70-99) 116 mg/dL (70-99) 133 mg/dL (70-99) Sodium Level 138 mmol/L (136-145) Potassium Level 5.0 mmol/L (3.5-5.1) Chloride Level 104 mmol/L (98-107) Carbon Dioxide Level 23 mmol/L (21-32) Anion Gap 11 (6-14) Blood Urea Nitrogen 58 mg/dL (8-26) Creatinine 2.6 mg/dL (0.7-1.3) Estimated GFR (Cockcroft-Gault) 25.9 Glucose Level 131 mg/dL (70-99) Calcium Level 9.0 mg/dL (8.5-10.1) Total Bilirubin 0.6 mg/dL (0.2-1.0) Direct Bilirubin 0.2 mg/dL (0.0-0.2) Aspartate Amino Transf (AST/SGOT) 458 U/L (15-37) Alanine Aminotransferase (ALT/SGPT) 615 U/L (16-63) Alkaline Phosphatase 309 U/L (46-116) Total Protein 6.8 g/dL (6.4-8.2) Albumin 2.7 g/dL (3.4-5.0) Hepatitis B Surface Antigen Nonreactive (Nonreactive) Comment Review of Relevant I have reviewed the following items eliud (where applicable) has been applied. Medications: Current Medications Medications (Trade) Dose Ordered Sig/[place] Route PRN Reason Start Time Stop Time Status Last Admin Dose Admin EZETIMIBE (Zetia) 10 mg DAILY PO 03/07/22 09:00 03/07/22 08:01 Justifications for Admission Other Justification MARLON HOFF MD March 07, 2022 11:27
[2022-03-07] MEDS ORDERED: FUROSEMIDE 40 MG TABLET. PO PRN (11:30)
[2022-03-07] MEDS: POLYETHYLENE GLYCOL 3350 17 GM PACKET. PO SCH ×3 (12:09→23:59)
--- NOTE | 2022-03-07 13:50 | EKG ---
[facility] [address] [place] [address] Test Date: 2022-03-07 Test Time: 12:01:26 Pat Name: ROSSY NOVOA Department: Room: 108 1 Gender: M Change Control Specialist: S : 1970 Requested By: SG CARTER Order Number: [id number] Reading MD: Moe Romero MD Measurements Intervals [place] Rate: 85 P: 72 DC: 182 QRS: -43 QRSD: 88 T: 75 QT: 356 QTc: 429 Interpretive Statements SINUS RHYTHM NON-SPECIFIC ST/T CHANGES Electronically Signed On 03-09-2022 15:40:16 CDT by Moe Romero MD
[2022-03-07] MEDS: hydrALAZINE 20 MG/ML VIAL. IVP PRN (15:11)
[2022-03-08] MEDS ORDERED: MAGNESIUM CITRATE 296 ML SOLUTION. PO ONE (01:30)
[2022-03-08 04:19] VITALS: BP 154/81
[2022-03-08] MEDS: POLYETHYLENE GLYCOL 3350 17 GM PACKET. PO SCH (05:22)
[2022-03-08 06:08] LABS: ALBUMIN 2.5 g/dL (3.4-5.0); CALCIUM 8.8 mg/dL (8.5-10.1); CREATININE 2.2 mg/dL (0.7-1.3); GFR 31.5; PHOSPHORUS 4.3 mg/dL (2.6-4.7); POTASSIUM 4.1 mmol/L (3.5-5.1)
[2022-03-08] MEDS: INSULIN LISPRO 300 UNITS/3 ML VIAL. SQ SCH (07:30)
[2022-03-08 08:00] VITALS: BP 149/86
[2022-03-08] MEDS ORDERED: AMLO-186 PO (08:04)
[2022-03-08] MEDS ORDERED: CLOP75TA PO (08:04)
[2022-03-08] MEDS ORDERED: METO50TA6 PO (08:04)
[2022-03-08] MEDS ORDERED: ASPI325T11 PO (08:04)
[2022-03-08] MEDS ORDERED: EZET10TA48 PO (08:04)
[2022-03-08] MEDS: CETIRIZINE HCL 10 MG TABLET. PO SCH (08:09)
[2022-03-08] MEDS: ASPIRIN ENTERIC COATED 325 MG TABLET.DR. PO SCH (08:09)
[2022-03-08] MEDS: METOPROLOL TART IMMED RELEASE 50 MG TABLET. PO SCH (08:10)
[2022-03-08] MEDS: CLOPIDOGREL BISULFATE 75 MG TABLET PO SCH (08:10)
[2022-03-08] MEDS: EZETIMIBE 10 MG TABLET. PO SCH (08:10)
[2022-03-08 08:11] VITALS: BP 154/81
[2022-03-08] MEDS: SENNOSIDES/DOCUSATE 8.6/50MG TABLET. PO SCH (08:11)
[2022-03-08] MEDS: FLUTICASONE 50MCG/NASAL SPRAY 16GM BOTTLE. NS SCH (08:12)
[2022-03-08 08:30] LABS: ALBUMIN 2.5 g/dL (3.4-5.0); DIRECT BILIRUBIN 0.1 mg/dL (0.0-0.2); TOTAL BILIRUBIN 0.4 mg/dL (0.2-1.0); TOTAL PROTEIN 6.7 g/dL (6.4-8.2)
--- NOTE | 2022-03-08 08:47 | PDOC ---
SG CARTER FERTILIZER PROCESSING SUPERVISOR 03/08/22 0847: CARDIO Progress Notes Date and Time Date of Service 03/08/2022 Time of Evaluation 0840 Subjective Subjective: No Chest Pain, No shortness of breath, No Palpitations, Other (complains of constipation) Vitals Vitals Vital Signs Date Time Temp Pulse Resp B/P (MAP) Pulse Ox O2 Delivery O2 Flow Rate FiO2 03/08/22 08:11 89 154/81 03/08/22 04:19 98.6 16 97 Room Air 98.6 Weight Weight [ ] Input and Output Intake and Output Intake and Output 03/08/22 07:00 Intake Total 1240 ml Output Total 3275 ml Balance -2035 ml Intake Oral 1240 ml Output Urine Total 3275 ml # Voids 4 Laboratory Labs Laboratory Tests Test 03/07/22 11:23 03/07/22 17:19 03/07/22 21:45 03/08/22 05:20 Glucose (Fingerstick) 189 mg/dL (70-99) 143 mg/dL (70-99) 206 mg/dL (70-99) Sodium Level 137 mmol/L (136-145) Potassium Level 4.1 mmol/L (3.5-5.1) Chloride Level 103 mmol/L (98-107) Carbon Dioxide Level 23 mmol/L (21-32) Anion Gap 11 (6-14) Blood Urea Nitrogen 51 mg/dL (8-26) Creatinine 2.2 mg/dL (0.7-1.3) Estimated GFR (Cockcroft-Gault) 31.5 Glucose Level 148 mg/dL (70-99) Calcium Level 8.8 mg/dL (8.5-10.1) Phosphorus Level 4.3 mg/dL (2.6-4.7) Total Bilirubin 0.4 mg/dL (0.2-1.0) Direct Bilirubin 0.1 mg/dL (0.0-0.2) Aspartate Amino Transf (AST/SGOT) 257 U/L (15-37) Alanine Aminotransferase (ALT/SGPT) 523 U/L (16-63) Alkaline Phosphatase 348 U/L (46-116) Total Protein 6.7 g/dL (6.4-8.2) Albumin 2.5 g/dL (3.4-5.0) Test 03/08/22 07:58 Glucose (Fingerstick) 150 mg/dL (70-99) Physical Exam HEENT: Neck Supple W Full Motion Chest: Symmetric LUNGS: Clear to Auscultation Heart: RRR (SR with intermittent PVCs) Abdomen: Soft N/T Extremities: No Edema Neurology: alert, oriented, follow commands Assessment Assessment 1. Acute non-STEMI: Cardiac catheterization showed 100% occluded large caliber leLCx. He underwent successful PCI/FAISAL placement. Telemetry showed few brief episodes of NSVT- none further. Continue secondary prevention including dual antiplatelet therapy. Cardiac rehab referral 2. Acute combined systolic and diastolic heart failure: 2D echo showed LVEF 45% with basal to mid inferior, posterior and lateral wall hypokinesis. He is clinically well compensated. 3. Accelerated hypertension: continue norvasc and metoprolol 4. Acute on chronic renal insufficiency, hyperkalemia: Nephrology following. avoid nephrotoxins 5. Hyperlipidemia: LDL significantly elevated at 247. Hold statin for now and trend LFTs. Start on zetia. PCSK9i would be an option but affordability is in question given his lack of health ins. 6. DM2: Treat per IM 6. Transaminitis: GI following Justicifation of Admission Dx: Justifications for Admission: Justification of Admission Dx: Yes [place]: Acute NSTEMI JESSENIA CLARK MD 03/08/22 1833: CARDIO Progress Notes Assessment Assessment Patient seen and examined. Agree with INFANTRY OPERATIONS SPECIALIST's assessment and plan. Tele did not show any significant arrhythmias s/p PCI/FAISAL to LCX, CP free - continue DAPT Statins stopped due to elevated LFT's - continue zetia and consider PCSK9 as outpatient Nephrology following for ac on chr renal insufficiency and hyperkalemia Follow up as scheduled SG CARTER APRN March 08, 2022 08:47 JESSENIA CLARK MD March 08, 2022 18:33
--- NOTE | 2022-03-08 08:55 | PDOC ---
DATE OF SERVICE DATE: 03/08/22 TIME: 08:42 SUBJECTIVE ROS . No acute events overnight.States feeling good OBJECTIVE Vital Signs Vital Signs Date Time Temp Pulse Resp B/P (MAP) Pulse Ox O2 Delivery O2 Flow Rate FiO2 03/08/22 08:11 89 154/81 03/08/22 04:19 98.6 16 97 Room Air 98.6 I & 0 Intake and Output 03/08/22 07:00 Intake Total 1240 ml Output Total 3275 ml Balance -2035 ml Intake Oral 1240 ml Output Urine Total 3275 ml # Voids 4 PHYSICAL EXAM Physical Exam General: Alert, Oriented X3 HEENT: Atraumatic Lungs: Clear to auscultation Heart: Regular rate, Normal S1, Normal S2 Abdomen: Normal bowel sounds, Soft, No tenderness, No hepatosplenomegaly Extremities: No clubbing Neuro: Normal speech Psych/Mental Status: Mental status NL No Rodriguez DIAGNOSIS/ASSESSMENT Assessment & Plan WINNIE- No previous labs available to me, per Card note baseline Cr 1.5 in the past Creat trending down Use of large amounts of Protein supplements for past several years . Was also on Lisinopril, Triam/HCTZ and 4-8 Tabs of Ibuprofen/day Improving renal function, Supportive care, Maintain fluid balance Avoid Nephrotoxins. Metolazone held . May not need to restart . Hold off Lisinopril, Maxzide and diuretics . Dw pt and cardiology ? CKD per chart notes, patient denies . Suspect 2/2 Lstanding Hx of HTN (since he was in his 20's) Use of NSAID's Hyperkalemia- Resolved . Was on PAULETTE-, Triam and Protein supplements with K . Acute ID status S/P cath with stent placement to the circumflex- on 03/03/2022. HTN urgency POA- Card managing DM2: insulin dependent Transaminitis- Will need further geller. GI following . Discussed extensively with Patient anf GF (on Phone) at great length regarding CKD, hyperkalemia, Low K diet , avoid high amts of protein supplements, balanced healthy diet COMMENT/RELEVANT DATA Meds Current Medications Medications (Trade) Dose Ordered Sig/[place] Start Time Stop Time Status Last Admin Dose Admin Acetaminophen (Tylenol) 650 mg PRN Q6HRS PRN 03/03/22 16:15 Amlodipine Besylate (Norvasc) 5 mg 1X ONCE 03/07/22 15:15 03/07/22 15:16 DC 03/07/22 15:11 5 MG Aspirin (Ecotrin) 325 mg [id number] 03/04/22 08:00 03/08/22 08:09 325 MG Atorvastatin Calcium (Lipitor) 40 mg QHS 03/03/22 21:00 03/06/22 18:16 DC 03/05/22 21:07 40 MG Bivalirudin (Angiomax) 250 mg 1X ONCE 03/03/22 18:15 03/03/22 18:16 DC 03/03/22 17:39 250 MG Calcium Carbonate/ Glycine (Tums) 500 mg PRN Q3HRS PRN 03/03/22 16:15 Calcium Gluconate (Calcium Gluconate) 1,000 mg 1X ONCE 03/03/22 23:00 03/03/22 23:01 DC 03/03/22 22:40 1,000 MG Cetirizine HCl (ZyrTEC) 10 mg DAILY 03/04/22 09:00 03/08/22 08:09 10 MG Clopidogrel Bisulfate (Plavix) 75 mg DAILYWBKFT 03/04/22 08:00 03/08/22 08:10 75 MG Dextrose (Dextrose 50%-Water Syringe) 25 gm 1X ONCE 03/03/22 23:00 03/03/22 23:01 DC 03/03/22 22:39 25 GM EZETIMIBE (Zetia) 10 mg DAILY 03/07/22 09:00 03/08/22 08:10 10 MG Fentanyl Citrate (Fentanyl 2ml Vial) 100 mcg 1X ONCE 03/03/22 18:15 03/03/22 18:16 DC 03/03/22 17:56 100 MCG Fluticasone Propionate (Flonase) 2 spray DAILY 03/04/22 09:00 03/08/22 08:12 2 SPRAY Furosemide (Lasix) 40 mg PRN DAILY PRN 03/07/22 11:30 Heparin Sodium (Porcine) (Heparin Sodium) 2,500 unit 1X ONCE 03/03/22 18:15 03/03/22 18:16 DC 03/03/22 17:28 2,500 UNIT Heparin Sodium/ Dextrose 250 ml @ 10 mls/hr CONT PRN 03/03/22 15:15 03/03/22 18:25 DC Heparin Sodium/ Sodium Chloride (HEPARIN for ARTERIAL LINE FLUSH) 1,000 unit 1X ONCE 03/03/22 18:15 03/03/22 18:16 DC 03/03/22 17:45 1,000 UNIT Hydralazine HCl (Apresoline Inj) 10 mg PRN Q4HRS PRN 03/03/22 15:00 03/07/22 15:11 10 MG Info (Non-Icu Electrolyte Protocol) 1 ea PRN DAILY PRN 03/03/22 16:15 Insulin Human Lispro (HumaLOG) 0-7 UNITS QIDACHS 03/07/22 22:00 03/07/22 22:10 2 UNITS Insulin Human Regular (HumuLIN R VIAL) 10 unit 1X ONCE 03/03/22 23:00 03/03/22 23:01 DC 03/03/22 22:41 10 UNIT Iodixanol (Visipaque 320) 100 ml 1X ONCE 03/03/22 18:15 03/03/22 18:16 DC 03/03/22 18:15 133 ML Lidocaine HCl (Xylocaine-Mpf 1% 2ml Vial) 2 ml 1X ONCE 03/03/22 18:15 03/03/22 18:16 DC 03/03/22 17:13 2 ML Lisinopril (Prinivil) 20 mg DAILY 03/04/22 09:00 03/03/22 16:56 DC Lorazepam (Ativan Inj) 2 mg 1X ONCE 03/03/22 15:00 03/03/22 15:01 DC 03/03/22 15:05 2 MG Magnesium Citrate (Citroma) 120 ml 1X ONCE 03/08/22 01:30 03/08/22 01:31 DC 03/08/22 01:06 120 ML Metolazone (Zaroxolyn) 5 mg DAILY 03/05/22 12:00 03/07/22 11:21 DC 03/07/22 08:00 5 MG Metoprolol Tartrate (Lopressor) 50 mg BID 03/06/22 08:00 03/08/22 08:10 50 MG Midazolam HCl (Versed) 2 mg 1X ONCE 03/03/22 18:15 03/03/22 18:16 DC 03/03/22 17:27 2 MG Morphine Sulfate (Morphine Sulfate) 2 mg PRN Q2HR PRN 03/03/22 15:00 03/03/22 15:34 2 MG Nitroglycerin (Nitroglycerin) 200 mcg STK-MED ONCE 03/03/22 18:12 03/03/22 18:12 DC Nitroglycerin (Nitrostat) 0.4 mg PRN Q5MIN PRN 03/03/22 15:00 Ondansetron HCl (Zofran) 4 mg PRN Q6HRS PRN 03/03/22 16:15 03/05/22 21:09 4 MG Oxycodone/ Acetaminophen (Percocet 5/325) 2 tab PRN Q4HRS PRN 03/03/22 16:15 Polyethylene Glycol (miraLAX PACKET) 17 gm Q6HRS 03/07/22 12:00 03/08/22 05:22 17 GM Senna/Docusate Sodium (Senna Plus) 1 tab BID 03/03/22 21:00 03/08/22 08:11 1 TAB Sodium Polystyrene Sulfonate (Kayexalate) 30 gm 1X ONCE 03/05/22 08:45 03/05/22 09:04 DC 03/05/22 09:13 30 GM Sodium Bicarbonate (Sodium Bicarb Adult 8.4% Syr) 50 meq 1X ONCE 03/03/22 23:00 03/03/22 23:01 DC 03/03/22 22:39 50 MEQ Sodium Chloride 1,000 ml @ 75 mls/hr [id number] 03/03/22 18:30 03/04/22 16:24 DC Tirofiban/Sodium Chloride 250 ml @ 0 mls/hr CONT PRN 03/03/22 18:15 03/04/22 12:14 DC 03/03/22 18:15 8.8 MLS/HR Triamterene/HCTZ (Maxzide 37.5/ 25mg) 2 tab DAILY 03/04/22 09:00 03/03/22 16:56 DC Vecuronium [place] (Norcuron Bolus) 6 mg 1X ONCE 03/06/22 18:00 03/06/22 18:01 Cancel Verapamil HCl (Verapamil) 2.5 mg 1X ONCE 03/03/22 18:15 03/03/22 18:16 DC 03/03/22 17:25 2.5 MG Zolpidem Tartrate (Ambien) 5 mg PRN QHS PRN 03/03/22 16:15 Lab Laboratory Tests Test 03/07/22 11:23 03/07/22 17:19 03/07/22 21:45 03/08/22 05:20 Glucose (Fingerstick) 189 mg/dL (70-99) 143 mg/dL (70-99) 206 mg/dL (70-99) Sodium Level 137 mmol/L (136-145) Potassium Level 4.1 mmol/L (3.5-5.1) Chloride Level 103 mmol/L (98-107) Carbon Dioxide Level 23 mmol/L (21-32) Anion Gap 11 (6-14) Blood Urea Nitrogen 51 mg/dL (8-26) Creatinine 2.2 mg/dL (0.7-1.3) Estimated GFR (Cockcroft-Gault) 31.5 Glucose Level 148 mg/dL (70-99) Calcium Level 8.8 mg/dL (8.5-10.1) Phosphorus Level 4.3 mg/dL (2.6-4.7) Total Bilirubin 0.4 mg/dL (0.2-1.0) Direct Bilirubin 0.1 mg/dL (0.0-0.2) Aspartate Amino Transf (AST/SGOT) 257 U/L (15-37) Alanine Aminotransferase (ALT/SGPT) 523 U/L (16-63) Alkaline Phosphatase 348 U/L (46-116) Total Protein 6.7 g/dL (6.4-8.2) Albumin 2.5 g/dL (3.4-5.0) Test 03/08/22 07:58 Glucose (Fingerstick) 150 mg/dL (70-99) Results All relevant outside records, renal labs, imaging studies, telemetry/EKG's were reviewed. Justicifation of Admission Dx: Justifications for Admission: Justification of Admission Dx: Yes ID: Acute NSTEMI KERWIN STANLEY MD March 08, 2022 08:55
--- NOTE | 2022-03-08 10:24 | DISCH ---
DISCHARGE INSTRUCTIONS Condition on Discharge Condition on Discharge: Stable Activity After Discharge Activity Instructions for Disc: Activity as tolerated Lifting Instructions after Dis: Do not lift >10 pounds Exercise Instruction after Dis: Walk 30 min, 3 x per week Driving Instructions after Dis: Do not drive today Weight Bearing Status after Di: As tolerated Diet after Discharge Diet after Discharge: Cardiac Follow-Up Follow up with: PCP within 2 weeks of discharge Follow Up With: Keep appointments with GI and Nephrology MARLON HOFF MD March 08, 2022 10:24
--- NOTE | 2022-03-08 10:26 | PDOC ---
Date of Service: DATE: 03/08/22 TIME: 10:23 Subjective: Subjective: Feeling better, wants to go home. Doesn't have a PCP, has some questions about cholesterol meds. Objective: Objective: D/w nurse - DC today pending GI recs. Vital Signs: Vital Signs Date Time Temp Pulse Resp B/P (MAP) Pulse Ox O2 Delivery O2 Flow Rate FiO2 03/08/22 08:11 89 154/81 03/08/22 08:00 Room Air 03/08/22 08:00 98.5 16 98 98.5 Labs: Laboratory Tests Test 03/07/22 11:23 03/07/22 17:19 03/07/22 21:45 03/08/22 05:20 Glucose (Fingerstick) 189 mg/dL 143 mg/dL 206 mg/dL Sodium Level 137 mmol/L Potassium Level 4.1 mmol/L Chloride Level 103 mmol/L Carbon Dioxide Level 23 mmol/L Anion Gap 11 Blood Urea Nitrogen 51 mg/dL Creatinine 2.2 mg/dL Estimated GFR (Cockcroft-Gault) 31.5 Glucose Level 148 mg/dL Calcium Level 8.8 mg/dL Phosphorus Level 4.3 mg/dL Magnesium Level 2.4 mg/dL Iron Level 33 ug/dL Total Iron Binding Capacity 226 ug/dL Iron Saturation 15 % Total Bilirubin 0.4 mg/dL Direct Bilirubin 0.1 mg/dL Aspartate Amino Transf (AST/SGOT) 257 U/L Alanine Aminotransferase (ALT/SGPT) 523 U/L Alkaline Phosphatase 348 U/L Total Protein 6.7 g/dL Albumin 2.5 g/dL Test 03/08/22 07:58 Glucose (Fingerstick) 150 mg/dL PE: GEN: NAD LUNGS: CTAB HEART: RRR ABD: NABS, S/ND/NT NEURO/PSYCH: A & O 3 A/P: NSTEMI, CAD s/p stent ?WINNIE vs CKD ACD - on ASA and Plavix Elevated LFTs - fluctuating - statin stopped, now on Zetia -- Okay w/ GI to DC. Monitor LFTs as outpt - our office can help (since he has no PCP). Justicifation of Admission Dx: Justifications for Admission: Justification of Admission Dx: Yes [place]: Acute NSTEMI RORY BURTON March 08, 2022 10:26
--- NOTE | 2022-03-08 11:12 | NUR ---
Pt requested BG checked before he is discharged, results were 236. Pt does not want to have BG treated here and wait to eat. He will treat BG when he leaves. Discharge will be completed
--- NOTE | 2022-03-08 11:29 | NUR ---
Pt and significant other were educated of discharge instructions. All questions answered. They both state no needs at this time. Pt IV removed with no complications.
--- NOTE | 2022-03-11 14:40 | PDOC3 ---
[facility]-Discharge Summary Date of Admission: Date of Admission: March 03, 2022 Date of Discharge: Date of Discharge: March 08, 2022 Discharge Diagnosis: Discharge Diagnosis: Acute PA status post cardiac cath with stent to the circumflex Systolic CHF with LVEF of 45% on echo done 03/03/2022 Probable noncompliance with going to the doctor per his significant other Jeimy Probable longstanding hypertension contributing to chronic renal insufficiency Baseline creatinine 2.1 WINNIE/CKD Hyperkalemia Transaminitishistory of hepatomegaly and fatty liver disease. No obvious clear etiology for elevation. Possibly related to recent PA and CHF Diabetes Headache Right elbow olecranon bursitis Consults: Consults: Per Cardiology: 1. Acute non-STEMI: Cardiac catheterization showed 100% occluded large caliber leLCx. He underwent successful PCI/FAISAL placement. Telemetry showed few brief episodes of NSVT- none further. Continue secondary prevention including dual antiplatelet therapy. Cardiac rehab referral 2. Acute combined systolic and diastolic heart failure: 2D echo showed LVEF 45% with basal to mid inferior, posterior and lateral wall hypokinesis. He is clinically well compensated. 3. Accelerated hypertension: continue norvasc and metoprolol 4. Acute on chronic renal insufficiency, hyperkalemia: Nephrology following. avoid nephrotoxins 5. Hyperlipidemia: LDL significantly elevated at 247. Hold statin for now and trend LFTs. Start on zetia. PCSK9i would be an option but affordability is in question given his lack of health ins. 6. DM2: Treat per IM 6. Transaminitis: GI following Assessment Patient seen and examined. Agree with [employer]MP[employer]IVER's assessment and plan. Tele did not show any significant arrhythmias s/p PCI/FAISAL to LCX, CP free - continue DAPT Statins stopped due to elevated LFT's - continue zetia and consider PCSK9 as outpatient Nephrology following for ac on chr renal insufficiency and hyperkalemia Follow up as scheduled Hospital Course: Hospital Course: By time of discharge patient was clinically stable and ready for discharge. Please see cardiology recommendations above. Patient will need to follow-up closely with nephrology and cardiology. Rest of hospital course was uneventful. 03/07/2022 No acute events overnight. Patient seen examined bedside. Potassium of 5.0. Liver enzymes elevating. Creatinine stable at 2.6. No complaints today. May be some nausea. Patient describes himself as a general follow-up. No acute blood pressure elevations but still elevated in the 140s to 150s. Metolazone will be held tomorrow per nephrology. GI evaluating transaminitis. So far hepatitis panel has been negative. Statin have been substituted for Zetia. No jaundice on my examination. Patient's chart, labs, images were reviewed and discussed with RN 03/06/2022 No acute events overnight. Patient seen examined bedside. Blood pressure still elevated in the high 170s. Metoprolol increased to 50 mg twice daily. Patient started on metoprolol this morning. Creatinine currently at 2.6 and plateaued. Potassium improved that currently at 4.8. We will repeat potassium tomorrow morning after started on metolazone. Discussed with cardiology. Counseled extensively on diabetic diet and decreasing protein intake and balancing diet with fibers. Counseled against additional protein supplements. 03/05/2022 Patient seen and examined Discussed with his significant other and I reviewed the chart with her per his request Discussed with Dr. You Discussed with RN Chart reviewed His potassium was up to 6.4 today we are giving Kayexalate Nephrology also started Zaroxolyn 03/04/2022 Patient seen and examined in the ICU He is currently on Aggrastat drip Tolerated his cardiac cath with stent to the circumflex yesterday Discussed with RN Chart reviewed 51-year-old male presented outside hospital this morning due to chest pain. Reported he was moving his trash can when he had midsternal chest pain abruptly. Began feeling lightheaded and diaphoretic. After this did not resolve went to outside emergency room. While there concern for STEMI and STEMI protocol activated transferred here. On presentation here still complaining of chest pain. A little bit lethargic. Patient initially ended up not needing catheterization after chart reviewed per cardiology. However after EKG was repeated here he was brought to the Director Of Operations for cardiac cath. Disposition: Disposition/Orders: D/C to Home Activity: Activity: Resume previous activity Diet: Diet: Cardiac Medications: Home Meds Active Scripts Aspirin (ASPIRIN EC) 325 Mg Tablet., 325 MG PO DAILYWBKFT for heart disease for 30 Days, #30 TAB.SR Prov:MARLON HOFF MD 03/08/22 Amlodipine Besylate (AMLODIPINE BESYLATE) 5 Mg Tablet, 5 MG PO DAILY for blood pressure for 90 Days, #90 TAB 2 Refills Prov:MARLON HOFF MD 03/08/22 Metoprolol Tartrate (METOPROLOL TARTRATE) 50 Mg Tablet, 50 MG PO BID for blood pressure for 90 Days, #180 TAB 2 Refills Prov:MARLON HOFF MD 03/08/22 Ezetimibe (Ezetimibe) 10 Mg Tablet, 10 MG PO QHS for cholesterol for 90 Days, #90 TAB 2 Refills Prov:MARLON HOFF MD 03/08/22 Clopidogrel Bisulfate (CLOPIDOGREL) 75 Mg Tablet, 75 MG PO DAILYWBKFT for CAD for 90 Days, #90 TAB 2 Refills Prov:MARLON HOFF MD 03/08/22 Reported Medications Insulin Aspart (NOVOLOG) 100 Unit/1 Ml Cartridge, 100 UNIT SQ TIDAFTMEAL PRN PRN for diabetes, EACH 03/03/22 Insulin Degludec (Tresiba) 100 Unit/1 Ml Vial, 100 UNIT SQ DAILY for diabetes, EACH 03/03/22 Cetirizine Hcl (CETIRIZINE HCL) 10 Mg Tablet, 10 MG PO DAILY for allergy, TAB 03/03/22 Discontinued Reported Medications Lisinopril (LISINOPRIL) 20 Mg Tablet, 1 TAB PO DAILY for hypertension, #30 TAB 5 Refills 03/03/22 Triamterene/Hydrochlorothiazid (TRIAMTERENE-HCTZ 75-50 MG TAB) 1 Each Tablet, 1 TAB PO DAILY for hypertension, #30 TAB 5 Refills 03/03/22 Scheduled Amlodipine Besylate (Amlodipine Besylate), 5 MG PO DAILY Aspirin (Aspirin Ec), 325 MG PO DAILYWBKFT Cetirizine Hcl (Cetirizine Hcl), 10 MG PO DAILY, (Reported) Clopidogrel Bisulfate (Clopidogrel), 75 MG PO DAILYWBKFT Ezetimibe (Ezetimibe), 10 MG PO QHS Insulin Degludec (Tresiba), 100 UNIT SQ DAILY, (Reported) Metoprolol Tartrate (Metoprolol Tartrate), 50 MG PO BID Scheduled PRN Insulin Aspart (Novolog), 100 UNIT SQ TIDAFTMEAL PRN PRN for diabetes, (Reported) Discontinued Medications Lisinopril (Lisinopril), 1 TAB PO DAILY, (Reported) Triamterene/Hydrochlorothiazid (Triamterene-Hctz 75-50 Mg Tab), 1 TAB PO DAILY, (Reported) Total Time: Total Time: Total time spent was 35 minutes in preparing scripts, discharge planning with SWI and RN and preparing this discharge summary Patient seen and examined on day of discharge. No acute abnormal findings. Justicifation of Admission Dx: Justifications for Admission: Justification of Admission Dx: Yes PA: Acute NSTEMI MARLON HOFF MD March 11, 2022 14:40
== END 2022-03-08 11:32 | disposition home or self-care (01) | DRG 246 ==
LOC: 1 WEST ICU 14:27
PROVIDERS: ADMIT Student in an Organized Health Care Education/Training Program; ATTEND Student in an Organized Health Care Education/Training Program
PROC: 027034Z Dilation of Coronary Artery, One Artery with Drug-eluting Intraluminal Device, Percutaneous Approach (ICD-10-PCS; principal; 2022-03-03)
PROC: 4A023N7 Measurement of Cardiac Sampling and Pressure, Left Heart, Percutaneous Approach (ICD-10-PCS; 2022-03-03)
PROC: B2111ZZ Fluoroscopy of Multiple Coronary Arteries using Low Osmolar Contrast (ICD-10-PCS; 2022-03-03)
DX: I21.4 Non-ST elevation (NSTEMI) myocardial infarction (principal); I50.43 Acute on chronic combined systolic (congestive) and diastolic (congestive) heart failure; N17.9 Acute kidney failure, unspecified; I13.0 Hypertensive heart and chronic kidney disease with heart failure and stage 1 through stage 4 chronic kidney disease, or unspecified chronic kidney disease; I47.2 Ventricular tachycardia; E11.22 Type 2 diabetes mellitus with diabetic chronic kidney disease; E78.5 Hyperlipidemia, unspecified; E87.5 Hyperkalemia; I16.0 Hypertensive urgency; I25.10 Atherosclerotic heart disease of native coronary artery without angina pectoris; K76.0 Fatty (change of) liver, not elsewhere classified; M70.21 Olecranon bursitis, right elbow; N18.9 Chronic kidney disease, unspecified; Z59.7 Insufficient social insurance and welfare support; Z79.4 Long term (current) use of insulin; Z91.19 Patient's noncompliance with other medical treatment and regimen; Z95.5 Presence of coronary angioplasty implant and graft
CPT/HCPCS: 36415; 73070; 76705; 76770; 80048; 80053; 80061; 80069; 80076; 80307; 81001; 82248; 82962; 83540; 83550; 83735; 84132; 84443; 84484; 85025; 85610; 85730; 86803; 87340; 92928; 93005; 93306; 93458; 99152; 99153; C1894; J0360; J0583; J0610; J1644; J1815; J1940; J2060; J2250; J2270; J2405; J3010; J3490; J7030; Q9967; C8929; G0378; J3246